=== PATIENT | male | born 1940 | race Caucasian/White ===

== ENCOUNTER 2024-01-03 13:15 | Emergency (ER) | payer MEDICARE, OTHER, SELFPAY ==
[2024-01-03 13:31] VITALS: BP 143/68
[2024-01-03 13:55] LABS: % Basophils 0.5 % (0-2); % Eosinophils 2.4 % (0-6); % Immature Granulocytes 0.3 % (0-0.5); % Lymphocytes 19.7 % (20.5-51.1); % Monocytes 9.1 % (1.7-9.3); Absolute Eosinophils 0.2 10^3/uL (0-0.7); Absolute Lymphocytes 1.5 10^3/uL (1.2-3.4); Absolute Monocytes 0.7 10^3/uL (0.1-0.6); Absolute Neutrophils 5.3 10^3/uL (1.4-6.5); Hematocrit 36.5 % (39.0-52.0); Mean Corp Hgb Conc. 32.9 g/dL (33.0-37.0); Mean Corpuscular Hgb 30.2 pg (27.0-31.0); Mean Corpuscular Volume 91.7 fL (80.0-94.0); Mean Platelet Volume 9.7 fL (7.4-10.4); Nucleated Red Blood Cells % 0 % (-); Platelet Count 175 10^3/uL (130-400); Red Blood Cell Count 3.98 10^6/uL (4.70-6.10); Red Cell Dist. Width 13.7 % (11.5-14.5); White Blood Cell Count 7.8 10^3/uL (4.8-10.8)
[2024-01-03 14:01] LABS: INR 1.08; PT 13.8 Sec (11.4-14.6)
[2024-01-03 14:02] LABS: ALT (SGPT) 20 U/L (0-50); AST (SGOT) 26 U/L (17-59); Albumin 4.9 g/dl (3.5-5.0); Alkaline Phosphatase 93 U/L (38-126); Blood Urea Nitrogen 40 mg/dl (9-20); Calcium 9.6 mg/dl (8.4-10.2); Carbon Dioxide 27 mmol/L (22-30); Chloride 102 mmol/L (98-107); Glucose 110 mg/dl (70-99); Potassium 4.9 mmol/L (3.5-5.1); Sodium 138 mmol/L (135-145); Total Bilirubin 0.5 mg/dl (0.2-1.3); eGFR 37.35
[2024-01-03 14:14] LABS: Troponin I < 0.012 ng/ml
== END 2024-01-03 17:27 ==
LOC: EMR 13:15
PROVIDERS: EMERGENCY PHYSICIAN Emergency Medicine
DX: R07.89 Other chest pain (principal); Z53.21 Procedure and treatment not carried out due to patient leaving prior to being seen by health care provider
CPT/HCPCS: 80053; 84484; 85025; 85610; 93005

== ENCOUNTER → 2024-01-04 10:23 | Outpatient (REF) | payer MEDICARE, OTHER, SELFPAY | LOC: RAD 10:23 | PROVIDERS: ATTENDING PHYSICIAN Specialist; FAMILY PHYSICIAN Internal Medicine Geriatric Medicine | DX: N13.30 Unspecified hydronephrosis (principal) | CPT/HCPCS: 78708; A9539 ==

== ENCOUNTER → 2024-01-13 11:14 | Outpatient (REF) | payer MEDICARE, OTHER, SELFPAY | LOC: DHCBC HW 11:14 | PROVIDERS: ATTENDING PHYSICIAN Internal Medicine Cardiovascular Disease; FAMILY PHYSICIAN Internal Medicine Geriatric Medicine | DX: I20.0 Unstable angina (principal) | CPT/HCPCS: 93306 ==

== ENCOUNTER → 2024-01-14 08:10 | Outpatient (REF) | payer MEDICARE, OTHER, SELFPAY | LOC: DHCBC/DCA 08:10 | PROVIDERS: ATTENDING PHYSICIAN Internal Medicine Cardiovascular Disease; FAMILY PHYSICIAN Internal Medicine Geriatric Medicine | DX: I25.10 Atherosclerotic heart disease of native coronary artery without angina pectoris (principal); Z95.5 Presence of coronary angioplasty implant and graft; I20.0 Unstable angina | CPT/HCPCS: 78452; 93017; A9500; J2785 ==

== ENCOUNTER 2024-05-10 17:49 | Observation (INO) | payer MEDICARE, OTHER, SELFPAY ==
[2024-05-10] VITALS (7 sets, daily range): BP systolic 116–158; BP diastolic 58–80; BMI 26.5
[2024-05-10] MEDS: TORADOL 15 MG IV ×2 (13:50→16:32)
[2024-05-10] MEDS: NSS 1000 IV ×2 (13:51→18:37)
--- NOTE | 2024-05-10 13:58 | ED.GENMED ---
History of Present Illness
General
Chief Complaint: Abdominal Symptoms
Time Seen by Provider: 05/10/24 13:05
History of Present Illness
History of Present Illness:
84-year-old male with history of hypertension, CAD status post CABG, history of bladder and prostate cancer in remission, history of chronic back pain status post MILD procedure 1 week ago by [facility] (Dr. Sales) presenting for lower abdominal pain and
diarrhea. Patient reports after the surgery, was prescribed tramadol. Since surgical procedure and taking medication, has had lower abdominal pain with diarrhea. Denies any blood in the diarrhea. Reports nausea without vomiting. Denies any
associated fever. Reports pain radiates to his right hip and groin. Also notes pain in his back since procedure. Denies weakness or numbness to his extremities. Patient presents from rehabilitation facility, sent for evaluation and imaging of
his abdomen. Denies chest pain or difficulty breathing. Denies medical complaints.
Phy Exam
Physical Exam
Physical Exam:
General: Well-appearing, no clinical signs of dehydration, nontoxic and in no acute distress
HEENT: protecting airway
Neck: appears supple
CV: Normal heart rate, regular rhythm, no evidence of cyanosis
Resp: No accessory muscle use, no increased work of breathing, lungs clear to auscultation bilaterally
Abd: Soft and non-distended, generalized tenderness to lower abdomen, left greater than right.
Extremities: No deformities, no swelling, no erythema, pulses and sensation intact. Incision to the lumbar spine is clean/dry/intact. No erythema or warmth. No palpable tenderness to the back.
Neuro: alert, no focal neurologic deficit
: deferred
Rectal: deferred
Psych: Normal affect
Skin: Intact
Course
Orders/Labs/Results
Orders:
Orders
05/10/24 13:43
0.9% Sodium Chloride 1000 ml [Nss] 1,000 ml IV BOLUS
Ketorolac [Toradol] 15 mg IV NOW STA
05/10/24 13:44
CT Abd/pelvis W Iv Cont Urgent
Comment:
Reason For Exam: lower abdominal pain and diarrhea
05/10/24 13:59
Complete Blood Count/With Diff Urgent
Comprehensive Metabolic Panel Urgent
Lipase Urgent
Urinalysis Reflex To Culture Urgent
Date Specimen was Collected: 05/10/24
Time Specimen was Collected: 13:48
Urine Microscopic Reflex Cult Urgent
Urine Culture Urgent
TOM Source: U
Specimen Description:
Date Specimen was Collected: 05/10/24
Time Specimen was Collected: 13:48
05/10/24 16:11
Cefepime HCl [Maxipime] 2,000 mg IV NOW STA
Ketorolac [Toradol] 15 mg IV NOW STA
Abnormal Lab Results
05/10/24
13:59
RBC 4.26 L 10^6/uL
(4.70-6.10)
MCH 31.5 H pg
(27.0-31.0)
Abs Immat Gran (auto) 0.1 H 10^3/uL
(0-0.05)
Absolute Monos (auto) 0.8 H 10^3/uL
(0.1-0.6)
Immature Gran % 0.7 H %
(0-0.5)
Lymphocytes % 14.4 L %
(20.5-51.1)
BUN 35 H mg/dl
(9-20)
Creatinine 1.4 H mg/dL
(0.7-1.3)
Glucose 105 H mg/dl
(70-99)
Ur Occult Blood Reflex 1+ A
(Negative)
Leukocyte Esterase Rfl 2+ A
(Negative)
Urine RBC 26-30 A /HPF
(0-2)
Urine WBC (Reflex) 50-60 A /HPF
(0-5)
05/10/24 13:59
05/10/24 13:59
Vital Signs
Initial and Last Documented VS:
Initial Vital Signs
Temp Pulse Resp BP Pulse Ox
97.9 F 74 18 147/79 100
05/10/24 12:14 05/10/24 12:14 05/10/24 12:14 05/10/24 12:14 05/10/24 12:14
Last Documented Vital Signs
Temp Pulse Resp BP Pulse Ox
97.9 F 71 18 158/74 99
05/10/24 12:14 05/10/24 16:05 05/10/24 16:05 05/10/24 16:05 05/10/24 16:05
MDM/Problems Addressed
MDM/Problems Addressed:
84-year-old male with history of CAD status post CABG, hypertension, prostate bladder cancer in remission, chronic back pain status post MILD procedure presenting for lower abdominal pain and diarrhea. Vital signs are normal.
On exam, patient is well-appearing, no acute distress, nontoxic. Generalized tenderness to lower abdomen, left greater than right. Differential considerations include enteritis versus diverticulitis versus cystitis versus obstruction. Patient's
incision to the back is well-appearing, without evidence of infection. No reproducible tenderness. No neurovascular compromise to the extremities. Without concern for present spinal abnormality. Will obtain laboratory analysis and CT abdominal
imaging. Will start on fluids and Toradol and reassess for improvement
16:10 -patient's labs relatively unremarkable. Urine does show evidence of bacteria and blood. CT shows severe bilateral hydroureteronephrosis without obstructing mass or stone, which has been seen on the left in the past, however has now
progressed to the right. Patient is still having significant amount of pain. Will redose pain medication. Will consult with urology and start antibiotics with plan for admission.
*Critical Care Note
Total Time (30-74mins, 75-104mins- exclusive of procedures): Not Applicable
ED Attending Note
-
Portions of this chart may have been created with voice recognition software.� Occasional wrong word or��sound alike� substitutions may have occurred due to the inherent limitations of voice recognition software.
Discharge Plan
Departure
Prescriptions:
No Action
olanzapine 2.5 MG tablet
2.5 mg PO HS
alprazolam 0.25 MG tablet
0.25 mg PO DAILY
Patient Comments:
01/07/22: Per PDMP, last filled 07/25/21 #30 for 30 days
famotidine 20 MG tablet
20 mg PO HS
mirtazapine 15 MG tablet
15 mg PO HS
escitalopram oxalate 20 MG tablet
20 mg PO DAILY
rosuvastatin 20 MG tablet
20 mg PO HS
Align 4 MG capsule
4 mg PO DAILY
polyethylene glycol 3350 [Miralax] 17 gram Powder In Packet
17 g PO HS
Colace 50 mg Capsule
150 mg PO HS
aspirin 81 mg Tablet,Chewable
81 mg PO DAILY
acetaminophen [Tylenol Ex Str Rapid Release] 500 mg Tablet
500 - 1,000 mg PO Q6H PRN (Reason: pain)
Referrals:
Adarsh Foy MD [Family Provider] -
Interventions
Interventions:
*Risk Screen - Suicide Last Done: 05/10/24 14:13
*General Assessment Last Done: 05/10/24 14:13
*Neglect/Abuse Screening Last Done: 05/10/24 14:13
[id number] Assessment Last Done: 05/10/24 14:13
Discharge Date and Time
Print Language: INDONESIAN
[2024-05-10 14:10] LABS: % Basophils 0.2 % (0-2); % Immature Granulocytes 0.7 % (0-0.5); % Lymphocytes 14.4 % (20.5-51.1); % Monocytes 9.2 % (1.7-9.3); % Neutrophils 74.5 % (42.2-75.2); Absolute Eosinophils 0.1 10^3/uL (0-0.7); Absolute Immature Granulocytes 0.1 10^3/uL (0-0.05); Absolute Lymphocytes 1.2 10^3/uL (1.2-3.4); Absolute Monocytes 0.8 10^3/uL (0.1-0.6); Absolute Neutrophils 6.2 10^3/uL (1.4-6.5); Hematocrit 39.8 % (39.0-52.0); Hemoglobin 13.4 g/dL (13.0-18.0); Mean Corp Hgb Conc. 33.7 g/dL (33.0-37.0); Mean Corpuscular Hgb 31.5 pg (27.0-31.0); Mean Corpuscular Volume 93.4 fL (80.0-94.0); Mean Platelet Volume 9.7 fL (7.4-10.4); Nucleated Red Blood Cells % 0 % (-); Platelet Count 150 10^3/uL (130-400); Red Blood Cell Count 4.26 10^6/uL (4.70-6.10); Red Cell Dist. Width 14.1 % (11.5-14.5); White Blood Cell Count 8.4 10^3/uL (4.8-10.8)
[2024-05-10 14:19] LABS: Urine Albumin Trace (Neg - Trace); Urine Bilirubin Negative (Negative); Urine Character Clear (Clear); Urine Color Yellow; Urine Glucose Negative (Negative); Urine Ketone Negative (Negative); Urine Leukocyte 2+ (Negative); Urine Nitrite Negative (Negative); Urine Occult Blood 1+ (Negative); Urine Specific Gravity 1.015 (<1.030); Urine Urobilinogen Negative (Neg - 1+); Urine pH 6.5 (5.0-9.0)
[2024-05-10 14:29] LABS: ALT (SGPT) 17 U/L (0-50); AST (SGOT) 26 U/L (17-59); Alkaline Phosphatase 70 U/L (38-126); Blood Urea Nitrogen 35 mg/dl (9-20); Calcium 9.5 mg/dl (8.4-10.2); Carbon Dioxide 30 mmol/L (22-30); Chloride 100 mmol/L (98-107); Glucose 105 mg/dl (70-99); Potassium 4.6 mmol/L (3.5-5.1); Sodium 136 mmol/L (135-145); Total Bilirubin 0.6 mg/dl (0.2-1.3); Total Protein 7.9 g/dl (6.3-8.2); eGFR 50.18
[2024-05-10 14:57] LABS: Lipase 213 U/L (23-300)
[2024-05-10 15:12] LABS: Urine Urothelial Cell 0-2 /LPF (FEW)
[2024-05-10 15:13] LABS: Urine Red Blood Cell 26-30 /HPF (0-2); Urine White Cell 50-60 /HPF (0-5)
--- NOTE | 2024-05-10 16:31 | HPS.HSE ---
Addendum entered and electronically signed by Roge Razo MD 05/10/24 17:07:
I saw and examined the patient.
The BRASS CHASER or PA's note was reviewed and I agree with the note.
Comment: 84 y/o M who presents with CC lower abdominal pain with diarrhea over the last week.
158/74, 71, 18, 97.9 �F, 99% on room air
Gen: NAD, AAOx3.
Eyes: EOMI, PERRLA, no scleral icterus.
Neck: supple.
CV: RRR, +S1/S2, no m/r/g.
Resp: CTAB, no rales, wheezes, or rhonchi.
Abd: +BS, soft, NT, ND
Skin: No rashes.
Neuro: CN 2-12 intact, 5/5 strength x 4, slightly decreased sensation to touch in RLE.
MSK: no TTP or bony deformities in the L-spine
Psych: Normal mood and affect.
CT A/P:
1. Severe bilateral hydroureteronephrosis without evidence for an obstructing mass or calculus. Findings are similar on the left but have progressed on the right compared to the CT abdomen/pelvis from 12/29/2022.
2. Cholelithiasis.
3. Moderate colonic stool burden.
4. Additional chronic findings, as detailed above.
U/A: WBC 50-60, 2+ LE, NEG NIT, 6-10 squamous
Cr 1.4 (1.8 on 01/03/24)
B/L hydronephrosis:
-Afebrile, no leukocytosis, no urinary symptoms. No diagnosis of UTI at this time.
-Cr 1.4, improved from prior
-c/s urology
-support with IVF after receiving IV contrast
Abdominal pain and diarrhea:
-it's very unlikely that these symptoms have anything to do with the patient's MILD procedure. It's likely coincidence that these symptoms started shortly after the procedure.
-Suspect overflow diarrhea due to moderate colonic stool burden. Start MiraLAX and senna.
Original Note:
Family Physician
-
Family Physician: Adarsh Foy
Chief Complaint
-
Right lower back pain to right hip, constipation x 1 week with diarrhea
History of Present Illness
84-year-old male with history of lumbar spinal stenosis status post MILD procedure [address] Murphy at [facility] who is complaining of current acute on chronic right lower back pain to right hip right side abdomen,
constipation x 1 week with liquid diarrhea x 1 week. He reports taking tramadol for pain but recently stopped. He denies fever, chills, chest pain, palpitations, shortness breath, cough, vomiting, urinary symptoms. He was noted to have
nonobstructive bilateral hydroureteronephrosis in ER with JOANNA and stool burden on CT. He has PMH lumbar spinal stenosis, bilateral renal calculi, bladder cancer s/ p /TURB ,BPH status post TURP 2021, CAD/CO/CABG x 3 vessel, CABG x 1 vessel 2018,
HTN, HLD, orthostatic hypotension, PE, asthma, GERD, esophageal stricture with history of swallowing difficulties,, IBS, OA, anxiety, depression
Medical History
Past Medical History
Past Medical History: Reports Other
Additional Past Medical History:
lumbar spinal stenosis
bilateral renal calculi
bladder cancer s/ p /TURB
BPH status post TURP 2021
CAD/CO/CABG x 3 vessel, CABG x 1 vessel 2018
HTN
Orthostatic hypotension
HLD
PE
asthma,
GERD
esophageal stricture with history of swallowing difficulties
IBS
OA
anxiety/ depression
Past Surgical History: Reports Other
Additional Past Surgical History:
Right CTR
CABG times 10/09/2017, CABG x 3
Bilateral cataract extraction
Dental implants
TURP 2021
TURB 2/2 bladder cancer
Social History
Tobacco: Non-smoker
Alcohol: None
Drug: None
Personal:
Living: With Family
Employment: Retired
Family History
Family History: Other (Father AAA, mother CVA)
Allergies / Home Medications
Allergies reflects when Allergies were last updated in [facility].
Home Medications with original date entered in [facility]
Allergy/Medication List:
Allergies
Allergy/AdvReac Type Severity Reaction Status Date / Time
No Known Allergies Allergy Verified 01/03/24 13:32
Home Medications
Bifidobacterium infantis 4 mg capsule (Align) 4 mg PO DAILY probiotic 01/01/22
alprazolam 0.25 mg tablet 0.25 mg PO BID@1200,2200 anxiety 01/01/22
escitalopram oxalate 20 mg tablet 20 mg PO DAILY depression/anxiety 01/01/22
famotidine 20 mg tablet 20 mg PO HS Gastrointestinal Issue 01/01/22
acetaminophen 500 mg tablet (Acetaminophen Pain Relief) 1,000 mg PO TID pain 01/11/23
aspirin 81 mg chewable tablet 81 mg PO DAILY Blood Clot Prevention/Tx 01/11/23
isosorbide mononitrate 30 mg tablet,extended release 24 hr 30 mg PO NOON Heart Disease/Condition 05/10/24
metoprolol succinate 25 mg tablet,extended release 24 hr 25 mg PO DAILY Blood Pressure 05/10/24
pregabalin 50 mg capsule 50 mg PO BID@0800,1800 Neurological Condition 05/10/24
rosuvastatin 40 mg tablet 20 mg PO HS High Cholesterol 05/10/24
Review of Systems
-
History Source: Patient and Family ( at bedside)
A 12 point ROS was completed and negative except as noted: Yes
Constitutional: Denies Fever or Fatigue
EENT: Denies Sore Throat or Runny Nose
Respiratory: Denies Cough or Trouble Breathing
Cardiac: Denies Chest Pain, Diaphoresis, Palpitations or Syncope
Abdomen/GI: Reports Abdominal Pain (Right sided), Diarrhea and Constipated (1 week); Denies Nausea or Vomiting
: Denies Dysuria, Frequency, Flank Pain, Incontinence, Difficulty Voiding, Urgency, Bleeding or Dark Urine
Musculoskeletal: Reports Other (Pain right lower lumbar/right buttocks on palpation, lumbar spinal incision at L1 level intact no surrounding erythema, tenderness or drainage); Denies Joint Pain or Edema
Skin: Denies Itching or Rash
Neurological: Denies Dizzy, Headache or Weakness
Endocrine: Reports No Symptoms
Hematologic/Lymphatic: Reports No Symptoms
Psych: Reports Calm
Physical Exam
Vital Signs
Vital Signs
Temp Pulse Resp BP Pulse Ox
97.9 F 71 18 158/74 99
05/10/24 12:14 05/10/24 16:05 05/10/24 16:05 05/10/24 16:05 05/10/24 16:05
Physical Exam
General: No Apparent Distress, Comfortable and Conversant; No Fever or Chills
HEENT: NormoCephalic, Anicteric, Moist mucous membranes, PERRLA and [place] Conjunctivae
Respiratory: Clear; No Wheezes, Rales or Rhonchi
Cardiac: S1/S2 and Regular Rhythm; No Murmur, Rub, Gallop or Peripheral Edema
Breast: Deferred by me
GI: Soft, Non Tender, Non Distended, Normal Bowel Sounds and No Hepatosplenomegaly
Rectal: Deferred by Provider
Genito-urinary: No costovertebral tender
Musculoskeletal: No Clubbing, No Cyanosis, No Edema and Other (Pain right lower lumbar/right buttocks on palpation, lumbar spinal incision at L1 level intact no surrounding erythema, tenderness or drainage)
Skin: Warm and Dry; No Rash
Neuro: AO x 3, No Motor Deficits, Nonfocal/grossly intact, Cranial Nerves Intact and No Sensory Deficits; No Slurred Speech, Facial Droop or Tremors
Psych: Calm
Laboratory Results
-
05/10/24 13:59
05/10/24 13:59
Laboratory Results
Total Bilirubin 0.6 mg/dl (0.2-1.3) 05/10/24 13:59
AST 26 U/L (17-59) 05/10/24 13:59
ALT 17 U/L (0-50) 05/10/24 13:59
Alkaline Phosphatase 70 U/L (38-126) 05/10/24 13:59
Lipase 213 U/L (23-300) 05/10/24 13:59
Impression/Plan
-
Impression/plan:
Admit to MedSurg
#ABD pain 2/2 severe bilateral hydroureteronephrosis without obstruction unclear etiology
#Bladder cancer s/ p /TURB 10 years ago-Hx chemo wash, BCG treatment
#BPH status post TURP 2021
#hx bilateral renal calculi
-UA negative, no WBC afebrile
-IV NSS
-IV Zofran
-Consult urology patient follows with Dr. Kaminski
CT abdomen pelvis With IV contrast
1. Severe bilateral hydroureteronephrosis without evidence for an obstructing mass or calculus. Findings are similar on the left but have progressed on the
right compared to the CT abdomen/pelvis from 12/29/2022.
2. Cholelithiasis.
3. Moderate colonic stool burden.
#Diarrhea 2/2 moderate stool burden
No BM in past Week
-Start MiraLAX, senna
#JOANNA 2/2 severe bilateral hydroureteronephrosis/diarrhea
Creat 1.4 baseline 1
IV NSS 100 cc/hr
-Follow BMP
#Acute on chronic right lower back pain with radiculopathy secondary to lumbar spinal stenosis
#Lumbar spinal stenosis
-Status post MILD procedure with incision lower back, removal bone/ligament tissue Dr. Maguire
-Continue Tylenol and Lyrica, patient stopped taking tramadol
# CAD/CO/CABG x 3 vessel, CABG x 1 vessel 2017
-Continue aspirin 81 mg daily, Imdur 30 mg noon, metoprolol succinate 25 mg daily, Crestor 20 mg at bedtime
# HTN�benign
#Orthostatic hypotension
-Continue metoprolol succinate 25 mg daily, Imdur 30 mg noon with hold parameters
#HLD
Continue Crestor 20 mg at bedtime
# PE hx
#asthma-no acute exacerbation
#GERD
#Esophageal stricture with history of swallowing difficulties
#IBS
-Continue Pepcid 20 mg at bedtime
#OA
-Continue Tylenol 1000 mg 3 times daily scheduled, Lyrica 50 mg twice daily
#Anxiety/ depression
-Continue Lexapro 20 mg daily, Xanax 0.25 mg twice daily
DVT prophylaxis
SCDs
DNR per patient with at bedside
[2024-05-10] MEDS: MAXIPIME 2000 MG IV (16:32)
[2024-05-10] MEDS: MIRALAX 17 GRAMS PO (17:19)
[2024-05-10] MEDS: SENOKOT 8.6 MG PO (17:19)
[2024-05-10] MEDS: LYRICA 50 MG PO (19:25)
--- NOTE | 2024-05-10 21:25 | CON.MD ---
Consultation - Medical
-
84M presents to ED w/ persistent right lower back pain w/ radiation to buttock and sacrum.
Also notes generalized lower abdominal pain w/ diarrhea.
Prior urologic h/o bladder cancer s/p TURBT and BPH s/p TURP.
H/o chronic left hydroureteronephrosis s/p stent placement (2022) and subsequent removal.
DENIES voiding symptoms.
DENIES dysuria.
CTAP w/ IV contrast =>
- bilateral hydroureteronephrosis without evidence for an obstructing mass or calculus. Findings are similar on the left but have progressed on the right compared to the CT abdomen/pelvis from 12/29/2022.
- TURP defect
04/04/24: s/p surveillance cystoscopy - normal, widely patent resected prostatic urethra, BCG granulomatous changes.
05/10/24: Cr 1.4
02/2024: Cr 1.64
12/2023: Cr 1.8
UA: +WBCs/RBCs, negative nitrites
Recommendations:
- no indication for uro-surgical intervention - observation of bilateral hydroureteronephrosis noted on CT imaging
- Cr stable (and improved from early 2023)
- UCx 05/10 no growth - no indication for abx
- F/U 09/2024 w/ Dr. Kaminski as scheduled
D/w patient and spouse.
D/w Dr. Kaminski.
[2024-05-10] MEDS: CRESTOR 20 MG PO (21:30)
[2024-05-10] MEDS: XANAX 0.25 MG PO (21:31)
[2024-05-10] MEDS: TYLENOL 1000 MG PO (21:31)
[2024-05-10] MEDS: PEPCID 20 MG PO (21:31)
[2024-05-11] MEDS: NSS 1000 IV ×2 (03:16→13:13)
[2024-05-11 06:44] LABS: % Basophils 0.3 % (0-2); % Eosinophils 2.5 % (0-6); % Immature Granulocytes 0.5 % (0-0.5); % Lymphocytes 17.3 % (20.5-51.1); % Monocytes 11.7 % (1.7-9.3); % Neutrophils 67.7 % (42.2-75.2); Absolute Eosinophils 0.2 10^3/uL (0-0.7); Absolute Lymphocytes 1.1 10^3/uL (1.2-3.4); Absolute Monocytes 0.7 10^3/uL (0.1-0.6); Absolute Neutrophils 4.1 10^3/uL (1.4-6.5); Hematocrit 34.2 % (39.0-52.0); Hemoglobin 11.7 g/dL (13.0-18.0); Mean Corp Hgb Conc. 34.2 g/dL (33.0-37.0); Mean Corpuscular Volume 90.7 fL (80.0-94.0); Mean Platelet Volume 9.9 fL (7.4-10.4); Nucleated Red Blood Cells % 0 % (-); Platelet Count 127 10^3/uL (130-400); Red Blood Cell Count 3.77 10^6/uL (4.70-6.10); Red Cell Dist. Width 13.9 % (11.5-14.5); White Blood Cell Count 6.1 10^3/uL (4.8-10.8)
[2024-05-11 07:09] LABS: Blood Urea Nitrogen 36 mg/dl (9-20); Calcium 8.5 mg/dl (8.4-10.2); Carbon Dioxide 22 mmol/L (22-30); Chloride 107 mmol/L (98-107); Estimated Creatinine Clearance 45 ml/min; Glucose 82 mg/dl (70-99); Potassium 4.4 mmol/L (3.5-5.1); Sodium 136 mmol/L (135-145); eGFR 50.18
[2024-05-11 07:38] VITALS: BP 136/64
[2024-05-11] MEDS: TYLENOL 1000 MG PO ×2 (08:02→16:32)
[2024-05-11] MEDS: SENOKOT 8.6 MG PO (08:02)
[2024-05-11] MEDS: MIRALAX 17 GRAMS PO (08:02)
[2024-05-11] MEDS: LYRICA 50 MG PO ×2 (08:03→16:32)
[2024-05-11] MEDS: TOPROL XL 25 MG PO (08:03)
[2024-05-11] MEDS: LOW STRENGTH ASPIRIN 81 MG PO (08:03)
[2024-05-11] MEDS: VISBIOME 1 CAP PO (08:03)
[2024-05-11] MEDS: LEXAPRO 20 MG PO (08:03)
--- NOTE | 2024-05-11 10:13 | W.PN.HOSP.TC ---
Addendum entered and electronically signed by Roge Razo MD 05/11/24 11:40:
I saw and evaluated the patient. I reviewed the resident�s note and agree with findings and plan as documented in the resident�s note.
Pt reports pain has improved from yesterday. Had small BM.
Gen: NAD, AAOx3.
Eyes: EOMI, PERRLA, no scleral icterus.
Neck: supple.
CV: remains RRR, +S1/S2, no m/r/g.
Resp: remains CTAB, no rales, wheezes, or rhonchi.
Abd: +BS, soft, NT, ND
Skin: No rashes.
Neuro: CN 2-12 intact
Psych: Normal mood and affect.
CT A/P:
1. Severe bilateral hydroureteronephrosis without evidence for an obstructing mass or calculus. Findings are similar on the left but have progressed on the right compared to the CT abdomen/pelvis from 12/29/2022.
2. Cholelithiasis.
3. Moderate colonic stool burden.
4. Additional chronic findings, as detailed above.
B/L hydronephrosis:
-Afebrile, no leukocytosis, no urinary symptoms. UCx NG. No diagnosis of UTI at this time.
-Cr 1.4, improved from prior, stable
-received IVFs after contrast
-urology saw in c/s. Case discussed with Dr. Thurston.
Abdominal pain and diarrhea:
-it's very unlikely that these symptoms do not have anything to do with the patient's MILD procedure. It's likely coincidence that these symptoms started shortly after the procedure.
-Suspect overflow diarrhea due to moderate colonic stool burden. Started MiraLAX and senna.
-dose of Mg citrate today
Medically cleared for discharge, case management aware.
Original Note:
Today's Communication/Plan
-
Urology consult appreciated
UC pending
Assessment / Plan
Assessment / Plan
IMPRESSION: 84-year-old male with past history of bladder cancer s/p TURB, BPH s/p TURP, CAD s/p CABG, hypertension, hyperlipidemia, GERD, IBS, MILD procedure (1 week ago) presenting with lower abdominal pain. CT showed severe bilateral
hydroureteronephrosis without mass or calculus, cholelithiasis, moderate colonic stool burden.
PLAN:
#Bilateral hydroureteronephrosis
-No fever, leukocytosis, urinary symptoms
-UA: Esterase 2+, WBC 50-60, squamous cells 6-10, nitrite negative
-UCx pending
-Urology consult appreciated
JOANNA
-Creatinine 1.4, stable from yesterday
-Likely in the setting of hydroureteronephrosis
-Urology consult appreciated
Diarrhea
-Overflow diarrhea in the setting of constipation
Constipation
-CT: Moderate colonic stool burden
-Start MiraLAX, senna
CAD, s/p CABG
-Continue aspirin, Imdur, metoprolol
HLP
-Continue rosuvastatin
GERD
-Continue Pepcid
Osteoarthritis
Continue Tylenol, Lyrica
Anxiety/depression
Continue Lexapro, Xanax
DVT prophylaxis SCDs
DNR
Anticipated Discharge: 24 - 48 hours
Subjective/Interval History
-
Date of Service: May 11, 2024
Objective Data
-
Labs:
Laboratory Results
05/11/24
06:03
WBC 6.1
Hgb 11.7 L
Hct 34.2 L
Plt Count 127 L
Sodium 136
Potassium 4.4
Chloride 107
Carbon Dioxide 22
BUN 36 H
Creatinine 1.4 H
Glucose 82
Calcium 8.5
Vital Signs:
Vital Signs
Temp Pulse Resp BP Pulse Ox
97.9 F 62 16 136/64 99
05/11/24 07:38 05/11/24 08:03 05/11/24 07:38 05/11/24 08:03 05/11/24 07:38
I&O
05/10/24 05/11/24 05/12/24
06:59 06:59 06:59
Intake Total 1959 / 1959
Output Total 100 / 100
Balance 1859 / 1859
Review of Systems
-
History Source: Patient
Constitutional: Reports No Symptoms
EENT: Reports No Symptoms Reported
Respiratory: Reports No Symptoms
Cardiac: Reports No Symptoms
Abdomen/GI: Reports No Symptoms
Genitourinary: Reports No Symptoms
Musculoskeletal: Reports No Symptoms
Neuro: Reports No Symptoms
Endocrine: Reports No Symptoms
Hematologic / Lymphatic: Reports No Symptoms
Allergy / Immunology: Reports No Symptoms
Physical Exam
-
General: Well Developed, Well Nourished and No Apparent Distress
HEENT: Normocephalic
Respiratory: Clear to Auscultation
Cardiac: Regular Rhythm and S1/S2
GI: Soft, Nontender and Nondistended
Genito-urinary: No Costovertebral Tender
Musculoskeletal: No Clubbing and No Edema
Neuro: Awake, Alert and Oriented
Hematologic / Lymphatic: No Lymphadenopathy
Psych: Calm
[2024-05-11 10:15] VITALS: BP 121/54; PULSE 58; O2SAT 100
[2024-05-11] MEDS: CITROMA 300 ML PO (10:16)
--- NOTE | 2024-05-11 10:28 | PTOTSP ---
pt currently demonstrates ability to complete simple ADLs, functional transfers, ambulation with supervision to no assistance. no acute OT needs identified at this time, will sign off.
[2024-05-11] MEDS: XANAX 0.25 MG PO (12:27)
[2024-05-11 15:20] VITALS: BP 136/66
--- NOTE | 2024-05-11 15:59 | W.DCSUMMARY ---
Addendum entered and electronically signed by Roge Razo MD 05/12/24 08:14:
Read, reviewed, and agree. See same day progress note for additional details.
Total time spent on d/c = 33 min. This included today's physical exam, progress note, review of laboratory and diagnostic data, preparation of discharge documents and prescriptions, and discussions about the pt's hospital course and discharge plan
with the patient and other medical underwriter involved in the patient's care.
Original Note:
Discharge Summary
Discharge Data
Date of Admission: 05/10/24
Date of Discharge: 05/11/24
Total time spent discharging patient (in min): 34
-
Pending Results: No
Hospital Course
Primary diagnoses:
Constipation with overflow diarrhea
Right lower back pain
Bilateral hydroureteronephrosis
Secondary diagnoses:
Essential hypertension
Hyperlipidemia
History of bladder cancer s/p TURBT
BPH s/p TURP
CAD s/p CABG
GERD
IBS
Esophageal stricture
54-year-old male status post MILD procedure 1 week ago presenting with right lower back pain radiating to right hip and buttock, constipation for the past week now with diarrhea, and lower abdominal pain. Patient denies urinary symptoms, fever,
nausea, vomiting. UA was positive for WBC/RBCs, negative for nitrites. UC showed no growth. Urology followed patient, no indication for urosurgical intervention. Creatinine was stable at 1.4 (with improvement from early 2023). Abdomen pelvis CT
with IV contrast showed severe bilateral hydroureteronephrosis without evidence for an obstructing mass or calculus, cholelithiasis, moderate colonic stool burden. Administered IVF after IV contrast. No leukocytosis was noted. Patient was started
on MiraLAX and senna for constipation.
Patient is medically stable to be discharged home with continuation of home meds. Outpatient follow-up with Dr. Kaminski as scheduled 09/2024 is recommended.
Discharge Plan
-
Patient Disposition: Home (Routine Discharge)
Discharge Diagnosis/Procedures: Right lower back pain, constipation, overflow diarrhea, bilateral hydroureteronephrosis, history of bladder cancer status post TURBT, history of benign prostate hyperplasia status post TURP, coronary artery disease
status post coronary artery bypass graft, hypertension, hyperlipidemia, gastroesophageal reflux disease, history of irritable bowel syndrome
Condition: Good
Diet: Low Cholesterol
Activity: As tolerated
Driving Restrictions: As prior to admission
Bathing Restrictions: None
Referrals:
Adarsh Foy MD [Family Provider] -
Additional Discharge Medication Instructions: Outpatient follow-up with Dr. Kaminski as scheduled 09/2024.
Prescriptions:
New
polyethylene glycol 3350 [HealthyLax] 17 gram Powder In Packet
17 g PO DAILY Qty: 3 0RF
Continued
alprazolam 0.25 MG tablet
0.25 mg PO BID@1200,2200
Patient Comments:
05/10/2024: last filled 03/10/24, 30 tabs for 30 days from [facility] [place]
famotidine 20 MG tablet
20 mg PO HS
escitalopram oxalate 20 MG tablet
20 mg PO DAILY
Align 4 MG capsule
4 mg PO DAILY
aspirin 81 mg Tablet,Chewable
81 mg PO DAILY
acetaminophen [Acetaminophen Pain Relief] 500 mg Tablet
1,000 mg PO TID
isosorbide mononitrate 30 mg tablet extended release 24 hr
30 mg PO NOON
metoprolol succinate 25 mg tablet extended release 24 hr
25 mg PO DAILY
rosuvastatin 40 mg tablet
20 mg PO HS
pregabalin 50 mg capsule
50 mg PO BID@0800,1800
Patient Comments:
05/10/2024: last filled 05/08/24, 60 tabs for 30 days from [facility] [place]
Discharge Orders:
Discharge Patient (As Directed); Ordered 05/11/24
Ordered By: Sarita Davila
Discharge Date and Time
Discharge Date/Time: 05/11/24 17:34
Print Language: AUSTRIAN
--- NOTE | 2024-05-11 16:47 | CM ---
Addendum entered by MADY Cullen 05/11/24 16:55:
Patient cleared for discharge. His fiancee will take him home. IMM signed.
Original Note:
Reviewed chart, met with patient to obtain information for assessment. Patient stated that he lives with his finileshe at [facility], in Independent living. Patient stated that he is independent with his ADLs and personal care as well as dressing
and bathing. He uses a rollator. His fiancee does all the driving and he has transportation to his appointments and to his provider.
Patient does not have DME besides the rollator.
He has been to a SNF in the past, at the [facility] and [facility].
Patient does not have VN services.
He has a prescription plan and he gets his medications from, [facility]
His provider is, Elpidio Foy.
Patient stated that he feels like he will be able to return home when cleared for discharge.
Plan: Case management will continue to follow and assist with discharge planning. Patient should be able to return home when cleared.
== END 2024-05-11 17:34 | disposition home or self-care (01) ==
LOC: 3 WEST ACU 17:49
PROVIDERS: Clinical Nurse Specialist Family Health; ADMITTING PHYSICIAN Internal Medicine; CONSULT PHYSICIAN Surgery; EMERGENCY PHYSICIAN Student in an Organized Health Care Education/Training Program; FAMILY PHYSICIAN Internal Medicine Geriatric Medicine
DX: R10.30 Lower abdominal pain, unspecified (principal); K59.00 Constipation, unspecified; R19.7 Diarrhea, unspecified; I25.10 Atherosclerotic heart disease of native coronary artery without angina pectoris; I10 Essential (primary) hypertension; G89.29 Other chronic pain; N13.30 Unspecified hydronephrosis; K80.20 Calculus of gallbladder without cholecystitis without obstruction; M19.90 Unspecified osteoarthritis, unspecified site; M25.551 Pain in right hip; I25.2 Old myocardial infarction; N17.9 Acute kidney failure, unspecified; F41.9 Anxiety disorder, unspecified; K58.0 Irritable bowel syndrome with diarrhea; F32.A Depression, unspecified; E78.5 Hyperlipidemia, unspecified; I95.1 Orthostatic hypotension; M48.061 Spinal stenosis, lumbar region without neurogenic claudication; K21.9 Gastro-esophageal reflux disease without esophagitis; K22.2 Esophageal obstruction; Z86.711 Personal history of pulmonary embolism; Z66 Do not resuscitate; Z85.46 Personal history of malignant neoplasm of prostate; Z85.51 Personal history of malignant neoplasm of bladder; Z95.1 Presence of aortocoronary bypass graft; Z87.442 Personal history of urinary calculi; Z90.79 Acquired absence of other genital organ(s); Z79.82 Long term (current) use of aspirin
CPT/HCPCS: 74177; 80048; 80053; 81003; 81015; 83690; 85025; 87070; 87086; 96361; 96374; 96375; 96376; 97165; 99285; G0378; Q9967

== ENCOUNTER 2024-05-21 17:30 | Emergency (ER) | payer MEDICARE, OTHER, SELFPAY ==
[2024-05-21 17:35] VITALS: BP 172/78
[2024-05-21 17:52] LABS: % Basophils 0.7 % (0-2); % Eosinophils 2.3 % (0-6); % Immature Granulocytes 0.2 % (0-0.5); % Lymphocytes 27.9 % (20.5-51.1); % Monocytes 9.6 % (1.7-9.3); % Neutrophils 59.3 % (42.2-75.2); Absolute Eosinophils 0.1 10^3/uL (0-0.7); Absolute Lymphocytes 1.2 10^3/uL (1.2-3.4); Absolute Monocytes 0.4 10^3/uL (0.1-0.6); Absolute Neutrophils 2.5 10^3/uL (1.4-6.5); Hematocrit 36.9 % (39.0-52.0); Hemoglobin 12.9 g/dL (13.0-18.0); Mean Corpuscular Hgb 31.5 pg (27.0-31.0); Mean Platelet Volume 9.8 fL (7.4-10.4); Nucleated Red Blood Cells % 0 % (-); Platelet Count 109 10^3/uL (130-400); Red Cell Dist. Width 13.5 % (11.5-14.5); White Blood Cell Count 4.3 10^3/uL (4.8-10.8)
[2024-05-21 18:00] VITALS: BP 141/65
[2024-05-21 18:12] LABS: ALT (SGPT) 23 U/L (0-50); AST (SGOT) 31 U/L (17-59); Albumin 4.9 g/dl (3.5-5.0); Alkaline Phosphatase 72 U/L (38-126); Blood Urea Nitrogen 21 mg/dl (9-20); Calcium 9.6 mg/dl (8.4-10.2); Carbon Dioxide 28 mmol/L (22-30); Chloride 95 mmol/L (98-107); Glucose 98 mg/dl (70-99); Potassium 4.7 mmol/L (3.5-5.1); Sodium 136 mmol/L (135-145); Total Bilirubin 0.7 mg/dl (0.2-1.3); Total Protein 7.8 g/dl (6.3-8.2); eGFR > 60.00
[2024-05-21] MEDS: TORADOL 15 MG IV (18:48)
[2024-05-21] MEDS: LYRICA 100 MG PO (18:56)
--- NOTE | 2024-05-21 23:20 | ED.GENMED ---
History of Present Illness
General
Chief Complaint: Generalized Pain
Source: patient
Exam Limitations: none
Time Seen by Provider: 05/21/24 18:31
Nursing documentation reviewed up to this point in time: agreed with
History of Present Illness
History of Present Illness:
Patient to ED with complaint of generalized pain. History of chronic generalized pain. Initially on Lyrica 50mg bid. This was increased to 100mg BID but he has not been able to get rx from pharmacy yet. States it will be avialable on wednesday.
States she had a MILD procedure done 3 weeks ago and his pain had progressively gotten worse. He was advised to follow up with Neurology but first appointment is not until Novemver. Came to ED tonight in hopes of being evaluated by neurologist.
Denies fever/chills, recent illness. No other complaints.
Past History
Past History
ED Past Medical History: CAD, Cancer (hx prostate), GERD, HTN, Hypercholesterolemia, Renal failure (c\\CKD), Psychiatric (anxiety) and Other (hx PE, NEUROPATHY)
ED Past Surgical History: Cardiac (CABG)
Review of Systems
Review of Systems
Allergies reviewed?: Yes
All Other Systems: ROS reviewed and negative except as documented in HPI and ROS
Constitutional: Reports no symptoms
EENT: Reports no symptoms
Respiratory: Reports no symptoms
Cardiac: Reports no symptoms
ABD/GI: Reports no symptoms
: Reports no symptoms
Musculoskeletal: Reports joint pain (Chronic generalized pain)
Skin: Reports no symptoms
Neurological: Reports other (Hx of neuropathy. Has generalized chronic pain)
Psychiatric: Reports depression and anxiety
Phy Exam
General Physical Exam
General Presentation: well appearing and no apparent distress
General age: appears stated age
General Skin: warm and dry
General Habitus: normal
General Mental: alert
General Hydration: appears well hydrated
Cardiovascular Exam
Cardiovascular Exam: regular rate/rhythm and no edema
Gastrointestinal Exam
Gastrointestinal Exam: non tender and soft
Neurological Exam
Neurological Exam: alert, oriented x3, CN II-XII intact, no motor deficits, no sensory deficits, speech normal and normal gait (Ambulating with walker)
Barbara Coma Scale
Eye Opening: Spontaneous
Verbal Response: Oriented
Motor Response: Obeys Commands
GCS Total Score: 15
Mental
Mental Status: oriented to person, oriented to place, oriented to time and usual mental status
Cranial
Cranial Nerves: normal
Motor
Seizure Activity: none
Gait: normal
Tremors: none
Right upper extremity: 4
Right lower extremity: 4
Left upper extremity: 4
Left lower extremity: 4
Bilateral upper extremities: 4
Bilateral lower extremities: 4
Sensory
Sensory Exam: intact
Musculoskeletal Exam
Musculoskeletal Exam: full ROM, no edema and neuro vasc intact
Skin Exam
Skin Exam: normal color, warm/dry and no rash
Psychiatric Exam
Psychiatric Exam: normal mood/affect
Course
Orders/Labs/Results
Orders:
Orders
05/21/24 17:41
Complete Blood Count/With Diff Urgent
Comprehensive Metabolic Panel Urgent
05/21/24 18:43
Ketorolac [Toradol] 15 mg IV NOW STA
05/21/24 18:53
Pregabalin [Lyrica] 100 mg PO NOW STA
Abnormal Lab Results
05/21/24
17:41
WBC 4.3 L 10^3/uL
(4.8-10.8)
RBC 4.10 L 10^6/uL
(4.70-6.10)
Hgb 12.9 L g/dL
(13.0-18.0)
Hct 36.9 L %
(39.0-52.0)
MCH 31.5 H pg
(27.0-31.0)
Plt Count 109 L 10^3/uL
(130-400)
Monocytes % 9.6 H %
(1.7-9.3)
Chloride 95 L mmol/L
(98-107)
BUN 21 H mg/dl
(9-20)
05/21/24 17:41
05/21/24 17:41
Vital Signs
Initial and Last Documented VS:
Initial Vital Signs
BP
172/78
05/21/24 17:35
Last Documented Vital Signs
Pulse Resp BP
74 22 141/65
05/21/24 18:50 05/21/24 18:50 05/21/24 18:00
*Critical Care Note
Total Time (30-74mins, 75-104mins- exclusive of procedures): Not Applicable
Update Note
Update Note:
Patient to ED hoping to see a neurologist jerod. I explained that he will not be able to see neurology tonight but that he can call the office on wednesday and ask for an earlier appointment. There are no changes in his symptoms tonight. He was
given 100mg Lyrica tonight and advised to take 2 of his 50mg tables bid until his rx is delivered. He is agreeable to plan.
ED Attending Note
-
Portions of this chart may have been created with voice recognition software.� Occasional wrong word or��sound alike� substitutions may have occurred due to the inherent limitations of voice recognition software.
Discharge Plan
Departure
Patient Disposition: Home (Routine Discharge)
Date of Disposition: 05/21/24
Time of Disposition: 19:00
Patient with high blood pressure during this ER visit?: No
Condition: Good
Covid-19: Not Applicable
Discharge Problem:
Generalized pain
Instructions: Chronic Pain (DC)
Prescriptions:
New
oxycodone 5 mg capsule
5 mg PO Q6H PRN (Reason: Pain) Qty: 8 0RF
No Action
alprazolam 0.25 MG tablet
0.25 mg PO BID@1200,2200
Patient Comments:
05/10/2024: last filled 03/10/24, 30 tabs for 30 days from [facility]
famotidine 20 MG tablet
20 mg PO HS
escitalopram oxalate 20 MG tablet
20 mg PO DAILY
Align 4 MG capsule
4 mg PO DAILY
aspirin 81 mg Tablet,Chewable
81 mg PO DAILY
acetaminophen [Acetaminophen Pain Relief] 500 mg Tablet
1,000 mg PO TID
isosorbide mononitrate 30 mg tablet extended release 24 hr
30 mg PO NOON
metoprolol succinate 25 mg tablet extended release 24 hr
25 mg PO DAILY
rosuvastatin 40 mg tablet
20 mg PO HS
pregabalin 50 mg capsule
50 mg PO BID@0800,1800
Patient Comments:
05/10/2024: last filled 05/08/24, 60 tabs for 30 days from [facility]
polyethylene glycol 3350 [HealthyLax] 17 gram Powder In Packet
17 g PO DAILY Qty: 3 0RF
Activity Restrictions/Additional Instructions:
Take a stool softener such as colace daily while using pain medications.
Interventions
Interventions:
*Risk Screen - Suicide Last Done: 05/21/24 17:36
*General Assessment Last Done: 05/21/24 17:36
*Neglect/Abuse Screening Last Done: 05/21/24 17:36
ED- Fall Risk Assessment Last Done: 05/21/24 17:35
*ED COVID-19 Vaccine History Last Done: 05/21/24 17:36
*Nursing Disposition Last Done: 05/21/24 19:11
Discharge Date and Time
Discharge Date/Time: 05/21/24 19:37
Print Language: UZBEK
== END 2024-05-21 19:37 | disposition home or self-care (01) ==
LOC: EMR 17:30
PROVIDERS: EMERGENCY PHYSICIAN Emergency Medicine; FAMILY PHYSICIAN Internal Medicine Geriatric Medicine
DX: G89.29 Other chronic pain (principal)
CPT/HCPCS: 99284; 96374; 80053; 85025

== ENCOUNTER → 2024-05-30 09:14 | Outpatient (REF) | payer MEDICARE, OTHER, SELFPAY | LOC: RAD 09:14 | PROVIDERS: ATTENDING PHYSICIAN Physician Assistant; FAMILY PHYSICIAN Internal Medicine Geriatric Medicine | DX: I71.40 Abdominal aortic aneurysm, without rupture, unspecified (principal) | CPT/HCPCS: 76770 ==

== ENCOUNTER → 2024-07-12 15:34 | Outpatient (REF) | payer MEDICARE, OTHER, SELFPAY | LOC: PAVMRI 15:34 | PROVIDERS: ATTENDING PHYSICIAN Psychiatry & Neurology Neurology; FAMILY PHYSICIAN Internal Medicine Geriatric Medicine | DX: G62.9 Polyneuropathy, unspecified (principal) | CPT/HCPCS: 70551 ==

== ENCOUNTER 2024-07-14 12:42 | Outpatient (REF) | payer MEDICARE, OTHER, SELFPAY ==
[2024-07-14 13:17] VITALS: BP 138/77; BP_SYST 51
[2024-07-14 13:46] LABS: INR 1.04; PT 13.4 Sec (11.4-14.6)
[2024-07-14 14:14] VITALS: BP 140/67
[2024-07-14 14:50] VITALS: BP 139/64
[2024-07-14 15:05] VITALS: BP 127/66
[2024-07-14 15:25] LABS: Spinal Fluid Glucose 53 mg/dl (40-70); Spinal Fluid Protein 67 mg/dl (12-60)
[2024-07-14 16:10] VITALS: BP 153/77
[2024-07-14 17:14] LABS: CSF Clarity Clear; CSF Color Colorless; CSF Tube # 1; Red Cell Count/CSF 1 mm^3; White Cell Count/CSF 1 mm^3 (0-5)
[2024-07-14 17:15] LABS: CSF Color Colorless; CSF Tube # 4; CSF Tube # Clarity Clear; Red Cell Count/CSF 1 mm^3; White Blood Cell Count/CSF 1 mm^3 (0-5)
== END 2024-07-14 16:35 | disposition home or self-care (01) ==
LOC: REG 12:42
PROVIDERS: ATTENDING PHYSICIAN Psychiatry & Neurology Neurology; FAMILY PHYSICIAN Internal Medicine Geriatric Medicine
DX: D68.8 Other specified coagulation defects (principal); D68.9 Coagulation defect, unspecified
CPT/HCPCS: 36415; 62328; 82945; 84157; 85610; 86788; 89051

== ENCOUNTER → 2024-12-14 11:31 | Outpatient (REF) | payer MEDICARE, OTHER, SELFPAY | LOC: HWRAD 11:31 | PROVIDERS: ATTENDING PHYSICIAN Specialist; FAMILY PHYSICIAN Internal Medicine Geriatric Medicine; REFERRING PHYSICIAN Internal Medicine Nephrology | DX: N13.30 Unspecified hydronephrosis (principal) | CPT/HCPCS: 76775 ==

== ENCOUNTER 2025-01-29 02:51 | Inpatient (IN) | payer MEDICARE, OTHER, SELFPAY ==
[2025-01-28 22:29] VITALS: BP 161/69
[2025-01-28 22:33] VITALS: BMI 28.5
[2025-01-28 22:47] LABS: % Basophils 0.3 % (0-2); % Eosinophils 1.9 % (0-6); % Immature Granulocytes 0.3 % (0-0.5); % Lymphocytes 16.2 % (20.5-51.1); % Neutrophils 71.3 % (42.2-75.2); Absolute Eosinophils 0.1 10^3/uL (0-0.7); Absolute Lymphocytes 1.1 10^3/uL (1.2-3.4); Absolute Monocytes 0.7 10^3/uL (0.1-0.6); Absolute Neutrophils 4.6 10^3/uL (1.4-6.5); Hematocrit 30.9 % (39.0-52.0); Hemoglobin 10.3 g/dL (13.0-18.0); Mean Corp Hgb Conc. 33.3 g/dL (33.0-37.0); Mean Corpuscular Hgb 29.6 pg (27.0-31.0); Mean Corpuscular Volume 88.8 fL (80.0-94.0); Mean Platelet Volume 9.7 fL (7.4-10.4); Nucleated Red Blood Cells % 0 % (-); Platelet Count 128 10^3/uL (130-400); Red Blood Cell Count 3.48 10^6/uL (4.70-6.10); Red Cell Dist. Width 14.3 % (11.5-14.5); White Blood Cell Count 6.5 10^3/uL (4.8-10.8)
[2025-01-28 23:00] VITALS: BP 161/70
[2025-01-28 23:01] LABS: Urine Albumin 2+ (Neg - Trace); Urine Bilirubin Negative (Negative); Urine Character Slightly Cloudy (Clear); Urine Glucose Negative (Negative); Urine Ketone Negative (Negative); Urine Leukocyte 3+ (Negative); Urine Nitrite Negative (Negative); Urine Occult Blood 2+ (Negative); Urine Urobilinogen Negative (Neg - 1+)
[2025-01-28 23:03] LABS: Urine Color Straw
[2025-01-28 23:12] LABS: Urine Bacteria Few (Negative)
[2025-01-28 23:13] LABS: Urine Red Blood Cell 0-2 /HPF (0-2); Urine White Cell 40-50 /HPF (0-5)
[2025-01-28 23:13] LABS: ALT (SGPT) 17 U/L (0-50); AST (SGOT) 23 U/L (17-59); Albumin 4.3 g/dl (3.5-5.0); Alkaline Phosphatase 63 U/L (38-126); Blood Urea Nitrogen 58 mg/dl (9-20); Calcium 9.1 mg/dl (8.4-10.2); Carbon Dioxide 26 mmol/L (22-30); Chloride 103 mmol/L (98-107); Estimated Creatinine Clearance 19 ml/min; Glucose 128 mg/dl (70-99); Lipase 178 U/L (23-300); Potassium 4.5 mmol/L (3.5-5.1); Sodium 138 mmol/L (135-145); Total Bilirubin 0.5 mg/dl (0.2-1.3); Total Protein 7.1 g/dl (6.3-8.2); eGFR 17.93
[2025-01-28] MEDS: DILAUDID 0.25 MG IV (23:21)
--- NOTE | 2025-01-28 23:30 | ED.GENMED ---
History of Present Illness
General
Chief Complaint: Abdominal Pain
Source: patient
Exam Limitations: none
Time Seen by Provider: 01/28/25 22:57
Nursing documentation reviewed up to this point in time: agreed with
History of Present Illness
History of Present Illness:
Patient is an 84-year-old male with stage IV CKD, CAD, hypertension, hyperlipidemia presenting to the emergency department with acute onset right flank pain. Patient reports onset of symptoms around 7 PM and describes a sharp, constant pain in his
right flank radiating around to his right upper abdomen and into his right groin. Patient reports associated nausea although denies any vomiting or diarrhea. Patient states this feels very different than prior kidney stones. He denies any
hematuria or dysuria.
Patient states he does have known gallstones and is wonder if this might be a gallbladder attack.
He denies exertional chest pain or shortness of breath. No known fever or chills.
Past History
Past History
ED Past Medical History: CAD, Cancer (hx prostate), GERD, HTN, Hypercholesterolemia, Renal failure (c\\CKD), Psychiatric (anxiety) and Other (hx PE, NEUROPATHY)
ED Past Surgical History: Cardiac (CABG)
Review of Systems
Review of Systems
Allergies reviewed?: Yes
All Other Systems: ROS reviewed and negative except as documented in HPI and ROS
Phy Exam
Physical Exam
Physical Exam:
Vitals: Hypertensive, otherwise vital signs stable. Afebrile
General: Patient is mildly uncomfortable due to pain. Nontoxic appearing
Skin: Warm and dry, no rashes or lesions
Head: Normocephalic, atraumatic
Eyes: Sclera nonicteric. EOMs intact. No nystagmus.
Throat: Protecting airway
Neck: Normal ROM, no cervical spine tenderness, no meningismus
Cardiac: Regular rate and rhythm, no murmurs.
Pulm: Normal respiratory effort, no wheezes, rales, rhonchi heard on exam
.
Abdomen: Abdomen soft. Mild tenderness in right upper quadrant without rebound tenderness or guarding. Negative Tena sign. Right CVA tenderness
Extremities: No evidence of cyanosis or edema. Palpable DP pulses bilaterally
Neuro: AAOx3. Grossly intact.
Psychiatric: Normal affect.
Course
Orders/Labs/Results
Orders:
Orders
01/28/25 22:41
Complete Blood Count/With Diff Urgent
Comprehensive Metabolic Panel Urgent
Lipase Urgent
01/28/25 22:53
Urinalysis Reflex To Culture Urgent
Date Specimen was Collected: 01/28/25
Time Specimen was Collected: 22:51
Urine Microscopic Reflex Cult Urgent
Urine Culture Urgent
TOM Source: U
Specimen Description:
Date Specimen was Collected: 01/28/25
Time Specimen was Collected: 22:51
01/28/25 23:06
HYDROmorphone [Dilaudid] 0.25 mg IV NOW STA
Renal Only US [US Renal Only W/O Bladder] Urgent
Comment:
Reason For Exam: Right flank pain
US Abdomen Complete/Upper Urgent
Comment:
Reason For Exam: RUQ pain
01/29/25 00:09
EKG [Electrocardiogram (*1)] Urgent
Reason for Study: Chest Pain
EKG- Treatment ONCE
01/29/25 00:20
Troponin I Urgent
01/29/25 00:37
HYDROmorphone [Dilaudid] 0.25 mg IV NOW STA
01/29/25 00:45
HYDROmorphone [Dilaudid] 0.5 mg IV NOW STA
01/29/25 00:47
Piperacillin/Tazo 3.375 Gram [Zosyn] 3.375 gram in 50 ml IV NOW
01/29/25 02:03
HYDROmorphone [Dilaudid] 1 mg IV NOW STA
01/29/25 02:14
Admit/Transfer Patient As Directed
Co-Sign Provider:
Level of Care: Inpatient admission
Assign to:: Medical/Surgical
Physician / Group: Edwin
Diagnosis: abdominal pain
Reason for Hospitalization: acute abdominal pain
Expected length of stay greater than two midnights?: Yes
ELOS- Estimated Length of Stay in days: 2
I certify the patient meets the requirements for IP care: Yes
PRN Pain Medication Management As Directed
May give lesser potent ordered pain med per pt: Yes
preference::
Protocol:: Medication orders for pain may be administered in a
manner that supports deferring to patient preference
when the pt is:
- Requesting an ordered lesser potent pain medication.
Least to most potent pain medications are defined
as: acetaminophen < NSAID < tramadol < opioids
(morphine, oxycodone, hydromorphone).
- Requesting a lesser dose of the same medication IF
ORDERED.
- Requesting a less intrusive route of administration
if both routes are prescribed by the provider (PO <
IV).
01/29/25 02:15
Code Status As Directed
Resuscitation Status: Do not resuscitate
Reached after discussion with pt or family/Healthcare POA: Yes
01/29/25 02:16
DNR Bracelet Application ONCE
01/29/25 03:00
Flush (0.9% Sodium Chloride) [Flush (Nss)] See Dose Instructions IV PER PROTOCOL
01/29/25 03:54
Acetaminophen [Tylenol] 650 mg PO Q4HPRN PRN
Bisacodyl [Dulcolax] 10 mg RECTAL [id number] PRN
Dextrose 5%/Lactringers 1000ML [D5lr] 1,000 ml IV 100 mls/hr
HYDROmorphone [Dilaudid] 0.5 mg IV Q4HPRN PRN
Nitroglycerin Sublingual [Nitrostat (Sublingual)] 0.4 mg SL Q5MPRN PRN
Ondansetron Injectable [Zofran] 4 mg IV Q6HPRN PRN
01/29/25 03:54
Hida Scan [NM Hepatobiliary (hida)] Routine
Comment:
Reason For Exam: abd pain, u/s w gb dist only, eval acute ken
Activity As Directed
Activity Level: With Assistance
Vital Signs As Directed
Frequency: Per unit guidelines
Pulse Ox/spot Check [RESP] Routine
Quantity: 1
DX Deep Vein Thrombosis Video Routine
01/29/25 05:16
Basic Metabolic Panel IN AM
Complete Blood Count/No Diff IN AM
01/29/25 Breakfast
NPO
Allow oral meds: Yes
Allow clear liquids: Sips of Clears
NPO with Ice Chips: Yes
01/29/25 08:00
Alprazolam [Xanax] 0.25 mg PO DAILY
Aspirin Chewable [Low Strength Aspirin] 81 mg PO DAILY
Escitalopram Oxalate [Lexapro] 20 mg PO DAILY
Heparin 5,000 units SC Q8
ISOSORBIDE MONOnitrate ER [Imdur (Extended Release)] 30 mg PO DAILY
Metoprolol Xl [Toprol Xl] 25 mg PO DAILY
Polyethylene Glycol Powder [Miralax] 17 grams PO DAILY
Pregabalin [Lyrica] 50 mg PO BID@0800,1800
01/29/25 10:00
Piperacillin/Tazo 2.25 Gram [Zosyn] 2.25 grams in 50 ml IV Q8H
01/29/25 22:00
Atorvastatin [Lipitor] 40 mg PO HS
Famotidine [Pepcid] 20 mg PO HS
Abnormal Lab Results
01/28/25 01/28/25
22:41 22:53
RBC 3.48 L 10^6/uL
(4.70-6.10)
Hgb 10.3 L g/dL
(13.0-18.0)
Hct 30.9 L %
(39.0-52.0)
Plt Count 128 L 10^3/uL
(130-400)
Absolute Lymphs (auto) 1.1 L 10^3/uL
(1.2-3.4)
Absolute Monos (auto) 0.7 H 10^3/uL
(0.1-0.6)
Lymphocytes % 16.2 L %
(20.5-51.1)
Monocytes % 10.0 H %
(1.7-9.3)
BUN 58 H mg/dl
(9-20)
Creatinine 3.3 H mg/dL
(0.7-1.3)
Glucose 128 H mg/dl
(70-99)
Ur Occult Blood Reflex 2+ A
(Negative)
Leukocyte Esterase Rfl 3+ A
(Negative)
Urine WBC (Reflex) 40-50 A /HPF
(0-5)
Urine Bacteria (Reflex) Few A
(Negative)
Urine Albumin (Reflex) 2+ A
(Neg - Trace)
01/28/25 22:41
01/28/25 22:41
Vital Signs
Initial and Last Documented VS:
Initial Vital Signs
Temp Pulse Resp BP Pulse Ox
97.9 F 68 18 161/69 99
01/28/25 22:29 01/28/25 22:29 01/28/25 22:29 01/28/25 22:29 01/28/25 22:29
Last Documented Vital Signs
Temp Pulse Resp BP Pulse Ox
97.8 F 65 18 105/51 94
01/29/25 21:52 01/29/25 21:52 01/29/25 21:52 01/29/25 21:52 01/29/25 21:52
MDM/Problems Addressed
Differential Diagnosis Includes:
Not limited to: Biliary colic, acute cholecystitis, choledocholithiasis, pancreatitis, pyelonephritis, ureterolithiasis, zoster, etc.
MDM/Problems Addressed:
84-year-old male presenting with acute onset right flank pain rating into right upper abdomen associated with nausea/vomiting. No dysuria, hematuria, fevers. Vital stable on arrival�she is afebrile. Physical exam as above. Patient moderately
uncomfortable with pain although nontoxic-appearing. Abdomen soft with reproducible tenderness in right upper flank/right upper quadrant. No rebound tenderness or guarding. Cardio/pulmonary assessment unremarkable. Differential broad at this
time although considerations include possible kidney stone/pyonephritis or intra-abdominal pathology including biliary colic or acute cholecystitis or other. Will check labs, urinalysis. Will obtain ultrasound abdomen/kidneys. Will treat pain and
closely monitor.
Update: Patient with very little improvement in symptoms following IV Dilaudid. Will give additional dose of IV pain medicine. Labs reviewed. No leukocytosis. Chronic anemia noted. Acute on chronic renal insufficiency noted with creatinine of
3.3. On discussion with patient�he states his creatinine last week was 3.03. Patient did begin complaining of chest discomfort so a troponin was added on which was undetectable. EKG also nonischemic. Ultrasound pending.
Update: Ultrasound shows sludge in gallbladder without any clear indication of acute cholecystitis. No evidence of obstructing stone on renal ultrasound. Urine somewhat equivocal for infection with 40�50 WBC and 3+ leukocyte esterase although
nitrate negative with few bacteria. Overall impression is likely biliary colic given patient is afebrile with no leukocytosis and normal liver enzymes. However�UTI/pyelonephritis would be additional consideration. Patient is having intractable
upper abdominal pain not responding to multiple rounds of IV narcotic medication. Patient will likely require a HIDA scan to rule out acute cholecystitis. Will admit patient to hospitalist for further evaluation, general surgery consult. Will
cover patient with IV Zosyn for possible early acute cholecystitis/UTI. Patient accepted to hospitalist service in stable condition.
Chronic conditions affecting care:
Stage IV CKD, CAD, hypertension, history of kidney stones
Acute Exacerbation and/or Progression of Chronic Illness:
Acutely hypertensive, biliary colic
*Radiology
Radiology exam reviewed: radiology read reviewed
*Pulse Oximetry
Patient hypoxic: no
*EKG
Interpreted by ED Provider?: Yes
EKG Intrepretation Date: 01/29/25
Interpretation: abnormal
Comparison EKG: changes noted
Heart Rate: 69
Rate: normal
Rhythm: sinus
[place]: normal axis
Ischemia: non-specific ST changes
*L[employer]id [employer] Operator Interpretation
Rate: [employer]- N/A
*Critical Care Note
Total Time (30-74mins, 75-104mins- exclusive of procedures): Not Applicable
Data Reviewed
Review of Other/Old Records Reveals: Radiology Studies (CT report 05/10/24 which shows gallstones)
Source: previous radiology exam
Patient Management
Discussion with other providers: Hospitalist
Escalation/DeEscalation of care consider admission/obs:
Admit for IV antibiotics, HIDA scan to rule out acute cholecystitis
ED Attending Note
-
Portions of this chart may have been created with voice recognition software.� Occasional wrong word or��sound alike� substitutions may have occurred due to the inherent limitations of voice recognition software.
Discharge Plan
Departure
Patient Disposition: Admit
Date of Disposition: 01/29/25
Time of Disposition: 00:52
Presentation/result/management discussed w/ accepting MD/DO: Hospitalist
Discharge Problem:
Biliary colic
Interventions
Interventions:
*Risk Screen - Suicide Last Done: 01/28/25 22:33
*General Assessment Last Done: 01/28/25 22:33
*Neglect/Abuse Screening Last Done: 01/28/25 22:33
*ED- Fall Risk Assessment Last Done: 01/28/25 22:33
*ED COVID-19 Vaccine History Last Done: 01/28/25 22:33
*Nursing Disposition Last Done: 01/29/25 07:32
WO-Cmyinh-Djknrgczlr Assessment Last Done: 01/28/25 23:23
[2025-01-29] VITALS (17 sets, daily range): BP systolic 20–176; BP diastolic 49–79; BMI 27.7
[2025-01-29 00:50] LABS: Troponin I < 0.012 ng/ml
[2025-01-29] MEDS: DILAUDID 0.5 MG IV ×2 (00:54→05:14)
[2025-01-29] MEDS: ZOSYN 50 IV ×3 (01:27→18:09)
--- NOTE | 2025-01-29 01:40 | HPS.HSE ---
Family Physician
-
Family Physician: Adarsh Foy
Chief Complaint
-
Abdominal pain
History of Present Illness
This is a 84-year-old male with extensive past medical history notable for CAD status post CABG, prostate cancer status post TURP, recurrent bladder cancer status post TURP, COPD, MGUS, irritable bowel syndrome and GERD who presents to the emergency
department with abdominal pain.
Patient reports onset of abdominal pain about 4 hours prior to coming to the emergency department. He localizes pain to the left flank/back. He reports nausea but denies any vomiting. He denies any diarrhea. He denies any fevers or chills. He
denies any urinary symptoms. He denies any sweats.
Patient reported that he had a scan very recently at [place] which showed gallstones in his gallbladder with no acute cholecystitis at that time. He also reported that his last creatinine was around 3.0 very recently and it has been worsening over the
last several months due to urinary retention/bilateral renal ureteral obstruction. He was offered chronic indwelling urinary cath versus nephrostomy tubes which she rejected both.
In the emergency department the patient was afebrile, pressure of 176/73 with a pulse of 69 and she is satting at 98% on room air.
CBC was unremarkable white count 6.5 hemoglobin 10.3 and platelet 128. The electrolytes were all normal. BUN and creatinine were abnormal with a creatinine of 3.3 up from a baseline of around 1.4-1.8 a year ago.
LFTs were completely normal. Lipase was normal. UA was positive for leukocyte esterase, few bacteria and WBCs.
Medical History
Past Medical History
Past Medical History: Reports Other
Additional Past Medical History:
lumbar spinal stenosis
bilateral renal calculi
bladder cancer s/ p /TURB
BPH status post TURP 2021
CAD/DC/CABG x 3 vessel, CABG x 1 vessel 2017
HTN
Orthostatic hypotension
HLD
PE
asthma,
GERD
esophageal stricture with history of swallowing difficulties
IBS
OA
anxiety/ depression
Past Surgical History: Reports Other
Additional Past Surgical History:
Right CTR
CABG times 10/09/2017, CABG x 3
Bilateral cataract extraction
Dental implants
TURP 2021
TURB 2/2 bladder cancer
Social History
Tobacco: Non-smoker
Alcohol: None
Drug: None
Personal:
Living: With Family
Employment: Retired
Family History
Family History: Other (Father AAA, mother CVA)
Allergies / Home Medications
Allergies reflects when Allergies were last updated in [employer].
Home Medications with original date entered in [employer]
Allergy/Medication List:
Allergies
Allergy/AdvReac Type Severity Reaction Status Date / Time
ezetimibe Allergy Unknown Unknown Verified 01/28/25 22:28
lisinopril Allergy Unknown Unknown Verified 01/28/25 22:28
Sulfa (Sulfonamide Allergy Unknown Unknown Verified 01/28/25 22:28
Antibiotics)
Home Medications
Bifidobacterium infantis 4 mg capsule (Align (B.infantis)) 4 mg PO DAILY probiotic 01/01/22
alprazolam 0.25 mg tablet 0.25 mg PO BID@1200,2200 anxiety 01/01/22
escitalopram oxalate 20 mg tablet 20 mg PO DAILY depression/anxiety 01/01/22
famotidine 20 mg tablet 20 mg PO HS Gastrointestinal Issue 01/01/22
aspirin 81 mg chewable tablet 81 mg PO DAILY Blood Clot Prevention/Tx 01/11/23
pregabalin 50 mg capsule 50 mg PO BID@0800,1800 Neurological Condition 05/10/24
rosuvastatin 40 mg tablet 20 mg PO HS High Cholesterol 05/10/24
polyethylene glycol 3350 17 gram oral powder packet (HealthyLax) 17 g PO DAILY Constipation #3 ea 05/11/24
docusate sodium 100 mg capsule (Colace) 200 mg PO HS 01/29/25
isosorbide mononitrate 30 mg tablet,extended release 24 hr 30 mg PO DAILY 01/29/25
Review of Systems
-
History Source: Patient
Constitutional: Reports No Symptoms
EENT: Reports No Symptoms
Respiratory: Reports No Symptoms
Cardiac: Reports No Symptoms
Abdomen/GI: Reports Abdominal Pain and Nausea
: Reports Flank Pain
Musculoskeletal: Reports No Symptoms
Skin: Reports No Symptoms
Neurological: Reports No Symptoms
Endocrine: Reports No Symptoms
Hematologic/Lymphatic: Reports No Symptoms
Psych: Reports No Symptoms
Physical Exam
Vital Signs
Vital Signs
Temp Pulse Resp BP Pulse Ox
97.9 F 69 19 176/73 96
01/28/25 22:29 01/29/25 01:00 01/28/25 23:15 01/29/25 00:09 01/29/25 01:00
Physical Exam
General: Well Developed, Well Nourished and Pain
HEENT: NormoCephalic, Anicteric, Moist mucous membranes and Atraumatic
Respiratory: Clear
Cardiac: S1/S2 and Regular Rhythm
Breast: Deferred by me
GI: Soft, Non Distended and Tender (minimal RUQ tenderness)
Rectal: Deferred by Provider
Genito-urinary: Costovertebral angle tend (mild R CVA tenderness)
Musculoskeletal: No Clubbing, No Cyanosis and No Edema
Skin: Warm
Neuro: AO x 3 and Nonfocal/grossly intact
Hematologic/Lymphatic: No Lymphadenopathy
Psych: Calm
Laboratory Results
-
01/28/25 22:41
01/28/25 22:41
Laboratory Results
Total Bilirubin 0.5 mg/dl (0.2-1.3) 01/28/25 22:41
AST 23 U/L (17-59) 01/28/25 22:41
ALT 17 U/L (0-50) 01/28/25 22:41
Alkaline Phosphatase 63 U/L (38-126) 01/28/25 22:41
Troponin I < 0.012 ng/ml 01/29/25 00:20
Lipase 178 U/L (23-300) 01/28/25 22:41
Data Reviewed
-
Ultrasound: Report Reviewed by me
Lab Data: Labs Reviewed by me
Old Records: Reviewed
Impression/Plan
-
IMPRESSION:
84-year-old was a past medical history significant for bladder cancer status post TURBT, prostate cancer status post TURP, CAD status post CABG, COPD not on home O2, prior left ureteroscopy status post stenting presenting to the emergency department
with 4 hours of right-sided flank pain and nausea. No fevers or chills. No vomiting. No diarrhea. Evaluation in the emergency department showed that he is afebrile hemodynamically stable without leukocytosis. He does have normal LFTs, normal
lipase. UA was positive. Patient had a right upper quadrant ultrasound with gallbladder distention moderately, gallbladder neck sludge. However no wall thickening or pericholecystic fluid and no Tena sign. CBD was within normal limits.
Overall clinical picture is more consistent with biliary colic versus pyelonephritis in the setting of patient's chronic urinary retention and positive UA. He shows no active signs of infection at this time.
PLAN:
1. Abdominal pain -presumed to be due to likely biliary colic but cannot rule out kidney infection. Acute cholecystitis less likely but still possible and patient is still very uncomfortable.
- admit to med/surg
- npo for now except meds and sips
- continue IV zosyn for possible acute ken
- dilaudid for pain, avoid morphine for now pending HIDA
- HIDA scan in am to help rule out acute ken
- patient poor candidate for surgery so unlikely surgery for just biliary colic
- surgical consult
- sent urine culture, continuing zosyn
2. Renal failure - worsening CKD. Outpatient cr was 3.1 one week ago. 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 CKD in part on the basis of chronic bladder retention and ureteral dysfunction for which he declined rodriguez
and nephrostomy/urostomy tubes
- gentle hydration for now
- avoid nephrotoxins
- renal dose medications
3. CAD - stable
- continue asa, statin, imdur
DVT PPX - heparin sq
Code status - DNR/DNI
[2025-01-29] MEDS: DILAUDID 1 MG IV (02:36)
[2025-01-29] MEDS: D5LR 1000 IV (05:15)
[2025-01-29 05:29] LABS: Hematocrit 33.5 % (39.0-52.0); Hemoglobin 11.3 g/dL (13.0-18.0); Mean Corp Hgb Conc. 33.7 g/dL (33.0-37.0); Mean Corpuscular Hgb 29.9 pg (27.0-31.0); Mean Corpuscular Volume 88.6 fL (80.0-94.0); Mean Platelet Volume 10.1 fL (7.4-10.4); Platelet Count 137 10^3/uL (130-400); Red Blood Cell Count 3.78 10^6/uL (4.70-6.10); Red Cell Dist. Width 13.9 % (11.5-14.5); White Blood Cell Count 8.7 10^3/uL (4.8-10.8)
[2025-01-29 06:00] LABS: Blood Urea Nitrogen 56 mg/dl (9-20); Calcium 9.4 mg/dl (8.4-10.2); Carbon Dioxide 23 mmol/L (22-30); Chloride 104 mmol/L (98-107); Estimated Creatinine Clearance 20 ml/min; Glucose 141 mg/dl (70-99); Sodium 141 mmol/L (135-145); eGFR 18.61
--- NOTE | 2025-01-29 10:12 | W.PN.HOSP.TC ---
Today's Communication/Plan
-
IV Abx
IVF
Assessment / Plan
Assessment / Plan
Physical Exam
General: Well Developed, Well Nourished and Pain
HEENT: NormoCephalic, Anicteric, Moist mucous membranes and Atraumatic
Respiratory: Clear
Cardiac: S1/S2 and Regular Rhythm
Breast: Deferred by me
GI: Soft, Non Distended and Tender (minimal RUQ tenderness)
Rectal: Deferred by Provider
Genito-urinary: Costovertebral angle tend (mild R CVA tenderness)
Musculoskeletal: No Clubbing, No Cyanosis and No Edema
Skin: Warm
Neuro: AO x 3 and Nonfocal/grossly intact
Hematologic/Lymphatic: No Lymphadenopathy
Psych: Calm
Abdominal pain -presumed to be due to likely biliary colic but cannot rule out kidney infection. Acute cholecystitis is possible, will f/w HIDA scan
c/w SAMI bx
c/w pain control
IVF
- surgical consult
#Possible uTI
- sent urine culture, continuing zosyn
#Acute Renal failure - worsening CKD IV . Outpatient cr was 3.1 one week ago. 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
and nephrostomy/urostomy tubes
- gentle hydration for now
- avoid nephrotoxins
- renal dose medications
Renal US Moderate to severe bilateral pelvicalyceal dilation with thinning of the overlying renal parenchyma, stable appearance compared to renal ultrasound of December 14, 2024.
Consult nephrology and urology
# CAD - stable
No chest pain
- continue asa, statin, imdur
DVT PPX - heparin sq
Code status - DNR/DNI
Total time spent to see the patient, examine the patient, review data and lab result, discuss treatment plan with patient, surgery, nursing staff around 55 minutes
Anticipated Discharge: > 48 hours
Subjective/Interval History
-
Date of Service: January 29, 2025
Pain in right flank area
Objective Data
-
Labs:
Laboratory Results
01/28/25 01/29/25
22:41 05:16
WBC 6.5 8.7
Hgb 10.3 L 11.3 L
Hct 30.9 L 33.5 L
Plt Count 128 L 137
Sodium 138 141
Potassium 4.5 5.0
Chloride 103 104
Carbon Dioxide 26 23
BUN 58 H 56 H
Creatinine 3.3 H 3.2 H
Glucose 128 H 141 H
Calcium 9.1 9.4
Total Bilirubin 0.5
AST 23
ALT 17
Alkaline Phosphatase 63
Vital Signs:
Vital Signs
Temp Pulse Resp BP Pulse Ox
98.2 F 91 18 139/79 100
01/29/25 07:30 01/29/25 07:30 01/29/25 07:30 01/29/25 07:30 01/29/25 07:30
--- NOTE | 2025-01-29 10:17 | PTCARENOTE ---
Received patient from ED around 0730 this AM. Pt ambulated from stretcher to bed in room. Pt oriented to room. All needs met at this time. Plan of care ongoing.
--- NOTE | 2025-01-29 10:39 | W.CON.NEPH ---
Consultation
-
Date/Time Consultation Requested: 01/29/2025 10:40 AM
Date/Time Consultation Performed: 01/29/2025 10:45 AM
Requesting Provider: Dr. Jules
Performing Provider: Dr. Bernal
Reason for Consultation: Acute kidney injury
Medical History
-
Chief Complaint: Acute kidney
History of Present Illness:
This is a 84-year-old male with extensive past medical history notable for CAD status post CABG on ASA and metoprolol, prostate cancer status post TURP, recurrent bladder cancer status post TURP, COPD, MGUS, irritable bowel syndrome and GERD who
presents to the emergency department with abdominal pain. Patient reports onset of abdominal pain about 4 hours prior to coming to the emergency department. He localizes pain to the left flank/back. He reports nausea but denies any vomiting. He
denies any diarrhea. He denies any fevers or chills. He denies any urinary symptoms. He denies any sweats.Patient reported that he had a scan very recently at [place] which showed gallstones in his gallbladder with no acute cholecystitis at that
time. He also reported that his last creatinine was around 3.0 very recently and it has been worsening over the last several months due to urinary retention/bilateral renal ureteral obstruction. He was offered chronic indwelling urinary cath
versus nephrostomy tubes which she rejected both. Now patient presents with acute renal failure with creatinine of 3.3 and nephrology was consulted. Renal U/S imaging reveals severe bilateral hydronephrosis with thinning of renal parenchyma
Past Medical History
lumbar spinal stenosis
bilateral renal calculi
bladder cancer s/ p /TURB
BPH status post TURP 2021
CAD/DE/CABG x 3 vessel, CABG x 1 vessel 2017
HTN
Orthostatic hypotension
HLD
PE
asthma,
GERD
esophageal stricture with history of swallowing difficulties
IBS
OA
anxiety/ depression
Past Surgical History: Reports Other
Additional Past Surgical History:
Right CTR
CABG times 10/09/2017, CABG x 3
Bilateral cataract extraction
Dental implants
TURP 2021
TURB 2/2 bladder cancer
Social History
Tobacco: Non-Smoker
Alcohol: None
Living: With Family
Family History
Family History: Not Pertinent
Allergies / Home Medications
Allergy/AdvReac Type Severity Reaction Status Date / Time
ezetimibe Allergy Unknown Unknown Verified 01/28/25 22:28
lisinopril Allergy Unknown Unknown Verified 01/28/25 22:28
Sulfa (Sulfonamide Allergy Unknown Unknown Verified 01/28/25 22:28
Antibiotics)
�Medication �Instructions �Recorded �Confirmed �Type
Bifidobacterium infantis 4 mg 4 mg PO DAILY probiotic 01/01/22 01/29/25 History
capsule (Align (B.infantis))
alprazolam 0.25 mg tablet 0.25 mg PO DAILY anxiety 01/01/22 01/29/25 History
escitalopram oxalate 20 mg tablet 20 mg PO DAILY depression/anxiety 01/01/22 01/29/25 History
famotidine 20 mg tablet 20 mg PO HS Gastrointestinal Issue 01/01/22 01/29/25 History
aspirin 81 mg chewable tablet 81 mg PO DAILY Blood Clot 01/11/23 01/29/25 History
Prevention/Tx
pregabalin 50 mg capsule 50 mg PO BID@0800,1800 05/10/24 01/29/25 History
Neurological Condition
polyethylene glycol 3350 17 gram 17 g PO DAILY Constipation #3 ea 05/11/24 01/29/25 Rx
oral powder packet (HealthyLax)
acetaminophen 500 mg tablet 1,000 mg PO TID PRN pain 01/29/25 01/29/25 History
atorvastatin 40 mg tablet 40 mg PO HS 01/29/25 01/29/25 History
docusate sodium 100 mg capsule 200 mg PO HS 01/29/25 01/29/25 History
(Colace)
isosorbide mononitrate 30 mg 30 mg PO DAILY 01/29/25 01/29/25 History
tablet,extended release 24 hr
metoprolol succinate 25 mg 25 mg PO DAILY 01/29/25 01/29/25 History
tablet,extended release 24 hr
nitroglycerin 0.4 mg sublingual 0.4 mg sublingual Q5-15M PRN chest 01/29/25 01/29/25 History
tablet pain
oxycodone-acetaminophen 5 mg-325 0.5 tab PO DAILY 01/29/25 01/29/25 History
mg tablet (Percocet)
Review of Systems
-
History Source: Patient
Abdomen/GI: Abdominal Pain
: Flank Pain
Physical Exam
Vital Signs
Vital Signs
Temp Pulse Resp BP Pulse Ox
98.2 F 91 18 139/79 100
01/29/25 07:30 01/29/25 07:30 01/29/25 07:30 01/29/25 07:30 01/29/25 07:30
Lab Results
01/29/25 05:16
01/29/25 05:16
WBC 8.7 10^3/uL (4.8-10.8) 01/29/25 05:16
RBC 3.78 10^6/uL (4.70-6.10) L 01/29/25 05:16
Hgb 11.3 g/dL (13.0-18.0) L 01/29/25 05:16
Hct 33.5 % (39.0-52.0) L 01/29/25 05:16
Plt Count 137 10^3/uL (130-400) 01/29/25 05:16
Sodium 141 mmol/L (135-145) 01/29/25 05:16
Potassium 5.0 mmol/L (3.5-5.1) 01/29/25 05:16
Chloride 104 mmol/L (98-107) 01/29/25 05:16
Carbon Dioxide 23 mmol/L (22-30) 01/29/25 05:16
BUN 56 mg/dl (9-20) H 01/29/25 05:16
Creatinine 3.2 mg/dL (0.7-1.3) H 01/29/25 05:16
eGFR 18.61 01/29/25 05:16
Glucose 141 mg/dl (70-99) H 01/29/25 05:16
Calcium 9.4 mg/dl (8.4-10.2) 01/29/25 05:16
Albumin 4.3 g/dl (3.5-5.0) 01/28/25 22:41
Physical Exam
General: AOx3, Nontoxic , NAD
HEENT: PERRL, EOMI, Anicteric, Conjunctivae Clear, Ear/Nose Intact, Hearing Normal, Oropharynx Clear/Moist, Dentition Intact, Facial Symmetry, Neck Supple, Neck: Trachea Midline, No JVD and No Thyromegaly, no Bruits
Respiratory: Clear to auscultation bilaterally with normal lung exersion
Cardiac: S1/S2 and Regular Rate/Rhythm
Breast: Deferred by me
Abdomen: Soft, tender VINICIO, Nondistended, Normal Bowel Sounds and No Hepatosplenomegaly
Rectal: Deferred by Provider
Genito-urinary: Right CVA tenderness
Extremities: No Clubbing, No Cyanosis and No Edema
Skin: No Rash or open lesions
Neuro: Nonfocal/Grossly Intact, CN II-XII (Intact) and Strength (Musculoskeletal exam 5 out of 5 both upper and lower extremities)
Hematologic/Lymphatic: No Cervical Lymphadenopathy, No Submandibular Lymphadenopathy and No Supraclavicular Lymphadenopathy
Psych: Mood/afflect pleasant, Insight/judgement good and Appropriate
Vascular: plus 1 pedal and radial pulses
Data Reviewed
-
Ultrasound: Report Reviewed by me (Renal ultrasound report reviewed bilateral hydronephrosis with bilateral parenchymal thinning)
Labs: Labs Reviewed by me (BMP CBC urinalysis)
Old Records: Reviewed (Reviewed previous outpatient creatinine 3.11-week prior, creatinine 1.1 on 05/21/24)
Assessment/Plan
-
Impression:
JOANNA (with bilateral hydronephrosis)
Coronary artery disease
CABG times 10/09/2017, CABG x 3
Bilateral cataract extraction
Dental implants
TURP 2021
TURB 2/2 bladder cancer
lumbar spinal stenosis
bilateral renal calculi
bladder cancer s/ p /TURB
BPH status post TURP 2021
HTN
Orthostatic hypotension
HLD
PE hx
Asthma
GERD
esophageal stricture with history of swallowing difficulties
IBS
OA
anxiety/ depression
Plan:
JOANNA: With bilateral hydronephrosis
- Consult urology as etiology of renal failure appears to be due to acute on chronic obstruction if patient amendable to interventions
- Patient has rejected offers of Forte catheter or nephrostomy tube in the past so I do not see initiating dialysis for ESRD as an option either
- No acute dialysis required at this time, he has sought out other opinions at [facility] who as per daughter did not offer any other insight on his renal failure other than obstruction
- He resides in [place]
- I do not have anything else to offer
[2025-01-29] MEDS: TOPROL XL 25 MG PO (13:24)
[2025-01-29] MEDS: XANAX 0.25 MG PO (13:25)
[2025-01-29] MEDS: LEXAPRO 20 MG PO (13:25)
[2025-01-29] MEDS: IMDUR (EXTENDED RELEASE) 30 MG PO (13:25)
[2025-01-29] MEDS: LOW STRENGTH ASPIRIN 81 MG PO (13:25)
--- NOTE | 2025-01-29 13:48 | CON.GS ---
Addendum entered and electronically signed by Angelo Chavez MD 01/29/25 14:54:
I saw and examined the patient independently.
The resident's documentation was reviewed and I agree with the note, assessment and plan except where noted below.
Comment: This is an 84-year-old male with significant medical comorbidities who presents with right sided abdominal pain after eating. There was initial ultrasound was fairly benign but did note sludge at the neck of the gallbladder. Given his
exam and history a HIDA scan was performed which was positive confirming acute cholecystitis.
Will plan for a laparoscopic cholecystectomy in the OR today. He will waive his DNR perioperatively.
N.p.o., IV fluids, IV antibiotics.
Risks/Benefits/Alternatives, expected postoperative course and possible complications (bleeding, infection, injury to surrounding structures, acute/chronic pain) discussed at length. Patient wishes to proceed with surgery. All questions answered.
Consent obtained.
I spent 70 minutes in total for the care of this patient today including direct patient care and counseling, reviewing labs, imaging, coordination of care, as well as documentation.
Original Note:
Consultation
-
Date/Time Consultation Requested: 01/29/2025 10:14
Date/Time Consultation Performed: 01/29/2025 1:35 PM
Requesting Provider: Kyrie Berry
Performing Provider: Angelo Loredo
Reason for Consultation: Biliary Colic
Medical History
-
Chief Complaint: Right upper quadrant tenderness
History of Present Illness:
Patient is an 84-year-old male, DO NOT RESUSCITATE, from [facility] with a past medical history for coronary artery disease, bladder cancer status post TURP, prostate cancer status post TURP, COPD, MGUS, irritable bowel syndrome,
GERD who presents to the emergency department with abdominal pain. The pain started at 6 PM on 01/28/2025 and is rated as severe, intermittent, localized in the right flank and radiates to the right upper quadrant and into his right groin, not
relieved on positional change or rest. Not associated with any episodes of vomiting, diarrhea, fever, chills, shortness of breath. Patient reported that he had a scan recently at [place] which showed gallstones in his gallbladder with no acute
cholecystitis at that time. Patient has CKD with urinary retention/bilateral renal ureteral obstruction and was offered chronic indwelling urinary catheter versus nephrostomy tubes for which he rejected both.
On admission patient's temperature, pulse, and O2 sat were normal. Blood pressure was 176/73.
On admission patients labs showed white count of 6.5 and normal, hemoglobin of 10.3, platelet 128, electrolytes normal, creatinine was 3.3 from a baseline of 1.4-1.8 a year ago. LFTs normal, lipase normal. Urinalysis showed leukocyte Estrace, few
bacteria and WBCs
Abdominal ultrasound on 01/28/2025 showed sludge in the neck of the gallbladder without secondary signs to suggest acute cholecystitis and a negative sonographic Tena sign. No evidence for biliary duct dilatation. Moderate to severe bilateral
pelvicaliceal dilatation.
Patient also had HIDA scan done today, which was positive. No filling of the gallbladder and findings compatible with cystic duct obstruction and/or acute cholecystitis.
Past Medical History
Past Medical History: Other (See HPI)
Past Surgical History: Cardiac (CABG) and Urological (TURP for prostate/bladder cancer)
Social History
Tobacco: Non-Smoker
Alcohol: None
Drug: None
Personal:
Living: With Family
Employment: Retired
Family History
Family History: Reviewed & Not Pertinent
Allergies / Home Medications
Allergy/AdvReac Type Severity Reaction Status Date / Time
ezetimibe Allergy Unknown Unknown Verified 01/28/25 22:28
lisinopril Allergy Unknown Unknown Verified 01/28/25 22:28
Sulfa (Sulfonamide Allergy Unknown Unknown Verified 01/28/25 22:28
Antibiotics)
�Medication �Instructions �Recorded �Confirmed �Type
Bifidobacterium infantis 4 mg 4 mg PO DAILY probiotic 01/01/22 01/29/25 History
capsule (Align (B.infantis))
alprazolam 0.25 mg tablet 0.25 mg PO DAILY anxiety 01/01/22 01/29/25 History
escitalopram oxalate 20 mg tablet 20 mg PO DAILY depression/anxiety 01/01/22 01/29/25 History
famotidine 20 mg tablet 20 mg PO HS Gastrointestinal Issue 01/01/22 01/29/25 History
aspirin 81 mg chewable tablet 81 mg PO DAILY Blood Clot 01/11/23 01/29/25 History
Prevention/Tx
pregabalin 50 mg capsule 50 mg PO BID@0800,1800 05/10/24 01/29/25 History
Neurological Condition
polyethylene glycol 3350 17 gram 17 g PO DAILY Constipation #3 ea 05/11/24 01/29/25 Rx
oral powder packet (HealthyLax)
acetaminophen 500 mg tablet 1,000 mg PO TID PRN pain 01/29/25 01/29/25 History
atorvastatin 40 mg tablet 40 mg PO HS 01/29/25 01/29/25 History
docusate sodium 100 mg capsule 200 mg PO HS 01/29/25 01/29/25 History
(Colace)
isosorbide mononitrate 30 mg 30 mg PO DAILY 01/29/25 01/29/25 History
tablet,extended release 24 hr
metoprolol succinate 25 mg 25 mg PO DAILY 01/29/25 01/29/25 History
tablet,extended release 24 hr
nitroglycerin 0.4 mg sublingual 0.4 mg sublingual Q5-15M PRN chest 01/29/25 01/29/25 History
tablet pain
oxycodone-acetaminophen 5 mg-325 0.5 tab PO DAILY 01/29/25 01/29/25 History
mg tablet (Percocet)
Review of Systems
-
History Source: Patient
All other systems: Negative unless noted
Abdomen/GI: Abdominal Pain (Right upper quadrant) and Nausea
A 10 point review of systems was completed, and was negative except as per HPI.
Physical Exam
Vital Signs
Temp Pulse Resp BP Pulse Ox
98.2 F 88 18 139/76 100
01/29/25 07:30 01/29/25 13:24 01/29/25 07:30 01/29/25 13:24 01/29/25 07:30
01/28/25 01/29/25 01/30/25
06:59 06:59 06:59
Actual Weight 95.1 kg 92.533 kg
Body Mass Index (BMI) 27.7
Lab Results
01/29/25 05:16
01/29/25 05:16
WBC 8.7 10^3/uL (4.8-10.8) 01/29/25 05:16
Hgb 11.3 g/dL (13.0-18.0) L 01/29/25 05:16
Hct 33.5 % (39.0-52.0) L 01/29/25 05:16
Plt Count 137 10^3/uL (130-400) 01/29/25 05:16
Abs Immat Gran (auto) 0.0 10^3/uL (0-0.05) 01/28/25 22:41
Neutrophils % 71.3 % (42.2-75.2) 01/28/25 22:41
Physical Exam
General: Well Developed and Well Nourished
GI: Soft, Non Distended and Tender (Right upper quadrant tenderness on palpation)
Data Reviewed
-
CT Scan: Report Reviewed by me and Discussed with Physician
Ultrasound: Report Reviewed by me and Discussed with Physician
Labs: Discussed with Physician and Discussed with Nurse
Assessment / Plan
-
Suspected acute cholecystitis secondary to positive HIDA scan:
-Diagnosis based on clinical features, physical examination, imaging
-Original abdominal ultrasound was negative for secondary signs of acute cholecystitis. Follow-up HIDA scan was positive which showed no filling of the gallbladder and findings compatible with cystic duct obstruction and/or acute cholecystitis.
-On physical examination, there is tenderness to palpation of the right upper quadrant of the abdomen.
-Keep patient n.p.o. before anticipated surgery
-Continue IV Zosyn until surgery
-Continue pain control with analgesics as needed
- Stop subcutaneous heparin 6 hours before surgery
-Patient will be scheduled today for a laparoscopic cholecystectomy, risk/benefits/complications explained to patient. Patient consents for surgery.
Possible urinary tract infection:
- Urine cultures are pending
Acute kidney injury with bilateral hydronephrosis:
- Today creatinine is 3.2
- Renally dose medications
- Continue gentle IVF
- Further management of nephrology team
Stable coronary artery disease:
- Continue aspirin, statin, , toprol
- Imdur held
Anxiety/ depression:
- Continue the escitalopram/ alprazolam
DVT ppx- heparin subq
DNR
[2025-01-29] MEDS: D5/0.9% SODIUM CHLORIDE 1000 IV (14:18)
--- NOTE | 2025-01-29 14:23 | W.SUR.PREOP ---
Pre-Operative Surgical Note
-
I have examined this patient prior to the performance of the scheduled procedure.
The patient's condition is unchanged from the time of the current History and
Physical and the patient is able to undergo the scheduled procedure.
--- NOTE | 2025-01-29 16:42 | CM ---
Alert awake oriented patient who lives with his Irma who lives in [facility]. He is independent in all activities of daily living.Irma drives not pt.He uses a rollator and cane .Will need PT OT for dc planning.
[place] [facility]x / [facility] history
Pharmacy [facility]
PCP DR Solano
PLAN PT OT will need for dc planning.
--- NOTE | 2025-01-29 17:27 | W.IMMPOSTOP ---
Surgical Immed Post Op Note
-
Primary Surgeon: Angelo Chavez MD
Assisting Surgeon: Henri Sim MD (PGY1)
Pre-op Diagnosis: Acute cholecystitis
Post-op Diagnosis: Gangrenous cholecystitis
Procedure Performed:
1. Laparoscopic cholecystectomy with cholangiogram
2. Drainage of an intra-abdominal abscess
Anesthesia Type: General
Specimen / Cultures: Gallbladder and contents
Estimated Blood Loss: 23 cc
Complications: None
Operative Findings: Perforated, gangrenous cholecystitis with infected bile in the right upper quadrant. Initial attempt of dissection in the cystic triangle difficult due to degree of inflammation. We switched to a top-down cholecystectomy with
minimal violation of the gallbladder wall and no spillage of stones. A cystic artery was identified and clipped. The cystic duct/infundibulum junction was identified and ligated with a 0 PDS Endoloop. I ductotomy was made and a cholangiogram was
performed which showed normal biliary anatomy and no filling defects. The duct was ligated proximally with a 0 PDS Endoloop and divided. The epigastric port site had to be enlarged slightly to accommodate to surgical removal. The port site was
closed with 2 [id number] 0 PDS sutures. Surgicel was placed in the gallbladder fossa and a 19 Somali round Tobi drain was introduced the right lower lateralmost port and draped across our surgical bed. This was secured to the skin with a 3-0
nylon suture.
POST OP PLAN:
Imaging: None
Labs: Routine AM
Diet: clear
Analgesia: Tylenol 650mg q6 Lilli, Aliya 5mg q6 PRN, Dilaudid 0.5mg q2h PRN
Neuro/vascular checks: q4h
AC/AP: Hold Therapeutic AC, Ok for DVT PPx
Activity: Ad Christie
Wound/Incisions/Drains: Routine, EAGLE drain teaching
Abx: Would continue antibiotics x 4 days
Dispo: RNF, anticipate discharge home with a drain in 1 to 2 days.
--- NOTE | 2025-01-29 17:31 | OR.RPT ---
Operative Report
Operative Report
Patient Name: Refugio Hussein
: 1940
Date of Operation: 01/29/2025
Preoperative Diagnosis: Acute cholecystitis
Postoperative Diagnosis: Gangrenous, perforated cholecystitis
Procedure(s):
1. Laparoscopic Cholecystectomy with Cholangiogram
2. Drainage of an intra-abdominal abscess
Surgeon(s):
Dr. Chavez
Manager Environmental Health And Safety(s):
Henri Sim MD (PGY1)
Anesthesia: General
Estimated Blood Loss: 23 cc
Urine Output: None
Drains/Lines/Implants: 19 Kazakh round Tobi drain in the gallbladder fossa.
Specimens:
1. Gallbladder and contents
HPI/Surgical Indications:
This is an 84-year-old male who presents with 1 day of postprandial right upper quadrant abdominal pain. Exam, labs and imaging were initially inconclusive but subsequent HIDA scan confirmed cholecystitis. Risks/Benefits/Alternatives were discussed
at length, and the patient agreed to proceed with surgery.
Operative Findings: Perforated, gangrenous cholecystitis with infected bile in the right upper quadrant. Initial attempt of dissection in the cystic triangle difficult due to degree of inflammation. We switched to a top-down cholecystectomy with
minimal violation of the gallbladder wall and no spillage of stones. A cystic artery was identified and clipped. The cystic duct/infundibulum junction was identified and ligated with a 0 PDS Endoloop. I ductotomy was made and a cholangiogram was
performed which showed normal biliary anatomy and no filling defects. The duct was ligated proximally with a 0 PDS Endoloop and divided. The epigastric port site had to be enlarged slightly to accommodate to surgical removal. The port site was
closed with 2 [id number] 0 PDS sutures. Surgicel was placed in the gallbladder fossa and a 19 Kazakh round Tobi drain was introduced the right lower lateralmost port and draped across our surgical bed. This was secured to the skin with a 3-0
nylon suture.
Procedure Description:
The patient was brought to the Operating Room and placed in the supine position with one arm tucked. Following uneventful induction of general endotracheal anesthesia, an orogastric tube was placed. The abdomen was prepped and draped in the usual
sterile fashion. A timeout was performed confirming the procedure, consent, and that IV antibiotics were infused and sequential compression devices were confirmed to be on. The abdomen was entered using a left subcostal Veress technique which
required a single pass followed by a 5 mm right upper quadrant Optiview trocar. Pneumoperitoneum to 15 mmHg pressure was obtained without difficulty and we confirmed that no injury had occurred during our entry. The patient was positioned in
reverse Trendelenberg and rotated with the right side up slightly. Two 5 mm trocars were then placed along the right subcostal margin, followed by a 12 mm port in the epigastrium. We noted mikie infected bile in the right upper quadrant,
gallbladder with patchy areas of necrosis concerning for perforation. The gallbladder was emptied using a decompressing needle through the fundus of the gallbladder with evacuation of hydrops before A locking grasping forceps was placed on the
fundus of the gallbladder where it was then retracted cephalad and to the right. Using appropriate grasping instruments, the peritoneum overlying the triangle of Calot was incised and extended superiorly on both the anterior and posterior
gallbladder sunshine. Though it appeared we were able to identify the infundibular junction, the cystic triangle was significantly scarred in and visualization of the appropriate planes was difficult. As a result we elected to do a top-down
cholecystectomy. The cystic artery was identified and clipped high on the gallbladder. We eventually were able to get to the infundibular/cystic duct junction, this was ligated properly with a 0 PDS Endoloop. A ductotomy was made and a
cholangiocatheter on an Membreno clamp was inserted into the cystic duct. A C-arm was draped and brought into the field. An intra-operative cholangiogram was performed and was noted to have:
No filling defects in the biliary tree
No significant biliary dilation
Brisk flow of contrast into the duodenum
Normal biliary anatomy
The catheter was then removed and the cystic duct was controlled with an additional 0 PDS Endoloop and divided. The gallbladder was then freed from the liver using electrocautery. There was some spillage of bile, but no spillage of stones. The
gallbladder bed was inspected and excellent hemostasis was obtained. The gallbladder was extracted through the 12 mm trocar site using an endocatch bag. The abdomen was again irrigated and excellent hemostasis was assured. A small 2 x 3 cm piece
of Surgicel was placed in the gallbladder fossa to ensure hemostasis. A 19 Kazakh round Tobi drain was then introduced through the right lateralmost port and secured at the skin with a 2-0 nylon suture after draping it across our surgical bed.
All remaining trocars were then removed and the pneumoperitoneum was evacuated. The 12 mm trocar site was closed using 0 PDS suture. All trocar sites were closed at the skin level using 4-0 Monocryl followed by Dermabond. Overall, the patient
tolerated the procedure well and was taken to the Recovery Room postoperatively in stable condition.
I was the attending physician and performed the procedure with assistance from the resident above who was instrumental in providing tension and counter tension during dissection, port placement and operating the camera. I was present for all
portions of the case, excluding skin closure.
Angelo Chavez MD
[2025-01-29] MEDS: PEPCID 20 MG PO (21:02)
[2025-01-29] MEDS: HEPARIN 5000 UNITS SC (21:02)
[2025-01-29] MEDS: LIPITOR 40 MG PO (21:03)
[2025-01-30] MEDS: ZOSYN 50 IV ×3 (02:51→17:40)
[2025-01-30] MEDS: D5/0.9% SODIUM CHLORIDE 1000 IV (03:23)
[2025-01-30] MEDS: TYLENOL 650 MG PO ×2 (04:43→17:55)
[2025-01-30 05:00] VITALS: BP 94/42
[2025-01-30 05:52] LABS: Blood Urea Nitrogen 56 mg/dl (9-20); Calcium 8.4 mg/dl (8.4-10.2); Carbon Dioxide 25 mmol/L (22-30); Chloride 108 mmol/L (98-107); Estimated Creatinine Clearance 18 ml/min; Glucose 141 mg/dl (70-99); Potassium 5.1 mmol/L (3.5-5.1); Sodium 140 mmol/L (135-145)
--- NOTE | 2025-01-30 07:30 | W.PN.UPDATE ---
Update Note
Progress Note Update
84M presents to ED w/ abdominal pain w/ nausea.
Denies F/C.
Denies voiding symptoms.
Patient notes worsening of creatinine in last several months - progression to ~3.0 due to h/o urinary retention and bilateral upper tract obstruction.
Chronic indwelling catheter vs. bilateral nephrostomy tubes were extensively discussed and offered - patient refused both options.
Cr 3.3 on admission (from baseline 1.4-1.8 in 2023).
Prior urologic h/o bladder cancer s/p TURBT and BPH s/p TURP (Dr. Kaminski).
H/o chronic left hydroureteronephrosis s/p stent placement (2022) and subsequent removal.
04/04/24: s/p surveillance cystoscopy - normal, widely patent resected prostatic urethra, BCG granulomatous changes.
12/27/24: outpatient F/U w/ Nephrology (Dr. Hills) => decompression of urinary tract recommended - rejected by patient. Not deemed candidate for HD w/o attempt at catheter/PCNs for observation of renal function.
Seen by Nephrology this admission - patient not deemed appropriate candidate for HD at this time, and he rejected recommendations of Forte catheter vs. bilateral nephrostomy tubes by IR.
01/29/25: s/p laparoscopic cholecystectomy and cholangiogram => perforated gangrenous cholecystitis noted intraop.
Recommendations:
- Advise placement of Forte catheter (vs. placement of bilateral nephrostomy tubes by IR)
- Trend Cr
- no indication for uro-surgical intervention
D/w Nephrology.
D/w Hospitalist.
[2025-01-30 07:39] VITALS: BP 103/59
[2025-01-30] MEDS: LEXAPRO 20 MG PO (07:52)
[2025-01-30] MEDS: LOW STRENGTH ASPIRIN 81 MG PO (07:52)
[2025-01-30] MEDS: XANAX 0.25 MG PO (07:52)
[2025-01-30] MEDS: IMDUR (EXTENDED RELEASE) 30 MG PO (07:52)
[2025-01-30] MEDS: TOPROL XL PO (07:53)
[2025-01-30] MEDS: HEPARIN 5000 UNITS SC ×2 (07:57→19:57)
--- NOTE | 2025-01-30 08:36 | W.PN.GS2 ---
Addendum entered and electronically signed by Angelo Chavez MD 01/30/25 08:41:
We will continue antibiotics x 4 days postop.
Appreciate urology recs.
Original Note:
Today's Communication / Plan
-
Okay for renal diet
Will need EAGLE drain teaching if being discharged today or tomorrow.
Assessment / Plan
-
This is an 84-year-old male postoperative day 1 from a laparoscopic cholecystectomy for gangrenous cholecystitis. Doing well, expected postoperative course.
Okay for renal diet, per primary.
Anticipate removing EAGLE on postoperative day 4 or 5, if he is still in house we will remove it here otherwise we will plan to remove it in the office later this week.
He is cleared from a surgery perspective for discharge but appreciate nephrology recs.
Surgery will follow peripherally, discharge instructions updated.
Time Spent
Total Time Spent with Patient (in minutes): 20
Subjective Data
-
Date of Service: January 30, 2025
Interval Events:
No acute events overnight. Slept well. Pain Controlled. Denies Nausea/Vomiting. Tolerating diet.
Objective Data
-
Intake and Output
01/29/25 01/30/25 01/31/25
06:59 06:59 06:59
Output Total 670 / 670
Balance -670 / -670
Output:
Drain Output (Total)
Right [place]
Urine, Voided 650 / 650
Vital Signs
Temp Pulse Resp BP Pulse Ox
97.5 F 66 14 103/59 98
01/30/25 07:39 01/30/25 07:53 01/30/25 07:39 01/30/25 07:53 01/30/25 07:39
Lab Results
01/29/25 05:16
01/30/25 05:08
Calcium 8.4 mg/dl (8.4-10.2) 01/30/25 05:08
Total Bilirubin 0.5 mg/dl (0.2-1.3) 01/28/25 22:41
AST 23 U/L (17-59) 01/28/25 22:41
ALT 17 U/L (0-50) 01/28/25 22:41
Alkaline Phosphatase 63 U/L (38-126) 01/28/25 22:41
Total Protein 7.1 g/dl (6.3-8.2) 01/28/25 22:41
Albumin 4.3 g/dl (3.5-5.0) 01/28/25 22:41
Physical Exam
-
GENERAL/NEURO: Awake, Alert, no distress
CHEST: Unlabored breathing on RA
ABDOMEN: Soft, Non-Tender, Non-Distended, EAGLE with serosanguineous drainage, incisions clean dry and intact.
Patient has a rodriguez catheter: No
Patient has a central line: No
--- NOTE | 2025-01-30 08:38 | W.PN.HOSP.TC ---
Today's Communication/Plan
-
No need for more IVF
c/w IV Abx
advancing diet
Bladder scan
Assessment / Plan
Assessment / Plan
Physical Exam
General: Well Developed, Well Nourished and Pain
HEENT: NormoCephalic, Anicteric, Moist mucous membranes and Atraumatic
Respiratory: Clear
Cardiac: S1/S2 and Regular Rhythm
Breast: Deferred by me
GI: Soft, Non Distended and Tender (minimal RUQ tenderness)
Rectal: Deferred by Provider
Genito-urinary: Costovertebral angle tend (mild R CVA tenderness)
Musculoskeletal: No Clubbing, No Cyanosis and No Edema
Skin: Warm
Neuro: AO x 3 and Nonfocal/grossly intact
Hematologic/Lymphatic: No Lymphadenopathy
Psych: Calm
# Acute gangrenous cholecystitis
s/p laparoscopic cholecystectomy with drain placement by Dr Chavez on 01/29. No complications reported
c/w IV Abx
Tolerating liquid diet
He denies nausea
Appreciate surgery help
#Possible uTI
- sent urine culture, continuing zosyn
#Acute Renal failure - worsening CKD IV . Outpatient cr was 3.1 one week ago. 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
and nephrostomy/urostomy tubes
- s/p IVF
- avoid nephrotoxins
- renal dose medications
Renal US Moderate to severe bilateral pelvicalyceal dilation with thinning of the overlying renal parenchyma, stable appearance compared to renal ultrasound of December 14, 2024.
Consult nephrology and urology
# CAD - stable
No chest pain
- continue asa, statin, imdur
DVT PPX - heparin sq
Code status - DNR/DNI
Total time spent to see the patient, examine the patient, review data and lab result, discuss treatment plan with patient, nursing staff around 55 minutes
Anticipated Discharge: 24 - 48 hours
Subjective/Interval History
-
Date of Service: January 30, 2025
He denies abdominal pain, nausea
No fevers
He reports chills at times
Objective Data
-
Labs:
Laboratory Results
01/30/25
05:08
Sodium 140
Potassium 5.1
Chloride 108 H
Carbon Dioxide 25
BUN 56 H
Creatinine 3.4 H
Glucose 141 H
Calcium 8.4
Vital Signs:
Vital Signs
Temp Pulse Resp BP Pulse Ox
97.5 F 66 14 103/59 98
01/30/25 07:39 01/30/25 07:53 01/30/25 07:39 01/30/25 07:53 01/30/25 07:39
I&O
01/29/25 01/30/25 01/31/25
06:59 06:59 06:59
Output Total 670 / 670
Balance -670 / -670
[2025-01-30] MEDS: LYRICA 25 MG PO (09:12)
--- NOTE | 2025-01-30 13:41 | W.PN.NEPH.PH ---
Today's Communication / Plan
-
JOANNA worsening with creatinine up to 3.4
[address] hold on metoprolol for systolic blood pressure less than 110
Will provide 500 cc normal saline bolus for hypotension
Assessment/Plan
-
Impression:
JOANNA (with bilateral hydronephrosis)
Coronary artery disease
CABG times 10/09/2017, CABG x 3
Bilateral cataract extraction
Dental implants
TURP 2021
TURB 2/2 bladder cancer
lumbar spinal stenosis
bilateral renal calculi
bladder cancer s/ p /TURB
BPH status post TURP 2021
HTN
Orthostatic hypotension
HLD
PE hx
Asthma
GERD
esophageal stricture with history of swallowing difficulties
IBS
OA
anxiety/ depression
Plan:
JOANNA: With bilateral hydronephrosis
-Creatinine up to 3.4 with notable hypotension postoperatively following cholecystectomy
- Consulted urology as etiology of renal failure appears to be due to acute on chronic obstruction if patient amendable to interventions: they recommended rodriguez
- Patient has rejected offers of Rodriguez catheter or nephrostomy tube in the past so I do not see initiating dialysis for ESRD as an option either
- No acute dialysis required at this time, he has sought out other opinions at [facility] who as per daughter did not offer any other insight on his renal failure other than obstruction
- He resides in [facility]
- Will provide 500 cc normal saline bolus due to hypotension, place holds on metoprolol
-
-
Date of Service: January 30, 2025
CC / HPI / ROS
-
Chief Complaint:
JOANNA
History of Present Illness:
Creatinine at 3.4
Status post cholecystectomy on 01/29/2025
Hypotensive
Review of Systems:
Nonoliguric
No chest pain or shortness of
Labs
-
Labs:
WBC 8.7 10^3/uL (4.8-10.8) 01/29/25 05:16
RBC 3.78 10^6/uL (4.70-6.10) L 01/29/25 05:16
Hgb 11.3 g/dL (13.0-18.0) L 01/29/25 05:16
Hct 33.5 % (39.0-52.0) L 01/29/25 05:16
Plt Count 137 10^3/uL (130-400) 01/29/25 05:16
Sodium 140 mmol/L (135-145) 01/30/25 05:08
Potassium 5.1 mmol/L (3.5-5.1) 01/30/25 05:08
Chloride 108 mmol/L (98-107) H 01/30/25 05:08
Carbon Dioxide 25 mmol/L (22-30) 01/30/25 05:08
BUN 56 mg/dl (9-20) H 01/30/25 05:08
Creatinine 3.4 mg/dL (0.7-1.3) H 01/30/25 05:08
eGFR 17.30 01/30/25 05:08
Glucose 141 mg/dl (70-99) H 01/30/25 05:08
Calcium 8.4 mg/dl (8.4-10.2) 01/30/25 05:08
Albumin 4.3 g/dl (3.5-5.0) 01/28/25 22:41
Physical Exam
-
Vital Signs:
Vital Signs
Temp Pulse Resp BP Pulse Ox
97.5 F 66 14 103/59 98
01/30/25 07:39 01/30/25 07:53 01/30/25 07:39 01/30/25 07:53 01/30/25 10:46
Cardiovascular:: Regular rate and rhythm
Respiratory:: Bilateral: CTA
Lung Excursion:: Normal
Abdomen:: Nontender and Soft
Bowel Sounds:: Decreased
Extremity Edema:: None: Bilateral:
Rodriguez Catheter: No
[2025-01-30] MEDS: NSS 500 IV (14:19)
[2025-01-30 15:09] VITALS: BP 107/55
[2025-01-30 15:36] VITALS: BP 118/59; PULSE 63
[2025-01-30] MEDS: DILAUDID 0.5 MG IV (19:57)
[2025-01-30] MEDS: LIPITOR 40 MG PO (21:04)
[2025-01-30 23:00] VITALS: BP 105/55
[2025-01-31] MEDS: ZOSYN 50 IV ×3 (01:12→17:11)
[2025-01-31 06:07] LABS: Blood Urea Nitrogen 54 mg/dl (9-20); Calcium 8.4 mg/dl (8.4-10.2); Carbon Dioxide 24 mmol/L (22-30); Chloride 112 mmol/L (98-107); Estimated Creatinine Clearance 20 ml/min; Glucose 92 mg/dl (70-99); Potassium 4.2 mmol/L (3.5-5.1); Sodium 142 mmol/L (135-145); eGFR 18.61
[2025-01-31] MEDS: DILAUDID 0.5 MG IV (06:21)
[2025-01-31] MEDS: LYRICA 25 MG PO (07:31)
[2025-01-31] MEDS: TOPROL XL 25 MG PO (07:31)
[2025-01-31] MEDS: LEXAPRO 20 MG PO (07:31)
[2025-01-31] MEDS: IMDUR (EXTENDED RELEASE) 30 MG PO (07:31)
[2025-01-31] MEDS: XANAX 0.25 MG PO (07:31)
[2025-01-31] MEDS: LOW STRENGTH ASPIRIN 81 MG PO (07:32)
[2025-01-31] MEDS: HEPARIN 5000 UNITS SC ×2 (07:32→21:33)
[2025-01-31 07:33] VITALS: BP 121/57
[2025-01-31 07:57] LABS: Hematocrit 27.6 % (39.0-52.0); Hemoglobin 9.1 g/dL (13.0-18.0); Mean Corpuscular Hgb 29.4 pg (27.0-31.0); Mean Corpuscular Volume 89.3 fL (80.0-94.0); Mean Platelet Volume 11.2 fL (7.4-10.4); Platelet Count 129 10^3/uL (130-400); Red Blood Cell Count 3.09 10^6/uL (4.70-6.10); Red Cell Dist. Width 14.9 % (11.5-14.5); White Blood Cell Count 5.6 10^3/uL (4.8-10.8)
[2025-01-31] MEDS: NSS 1000 IV ×2 (08:05→21:34)
[2025-01-31 08:16] LABS: ALT (SGPT) 119 U/L (0-50); AST (SGOT) 114 U/L (17-59); Albumin 3.7 g/dl (3.5-5.0); Alkaline Phosphatase 166 U/L (38-126); Direct Bilirubin 0.2 mg/dl (0.0-0.4); Total Bilirubin 0.4 mg/dl (0.2-1.3); Total Protein 6.4 g/dl (6.3-8.2)
--- NOTE | 2025-01-31 08:30 | W.PN.HOSP.TC ---
Today's Communication/Plan
-
Patient wants to talk directly to his urologist Dr. Kaminski(he was notified), keep n.p.o. for now. Mild IV fluid
repeat blood work in AM
Assessment / Plan
Assessment / Plan
Physical Exam
General: Well Developed, Well Nourished and Pain
HEENT: NormoCephalic, Anicteric, Moist mucous membranes and Atraumatic
Respiratory: Clear
Cardiac: S1/S2 and Regular Rhythm
Breast: Deferred by me
GI: Soft, Non Distended and not much tenderness right upper quadrant, positive costovertebral tenderness on the right side
Rectal: Deferred by Provider
Genito-urinary: Costovertebral angle tend ( R CVA tenderness)
Musculoskeletal: No Clubbing, No Cyanosis and No Edema
Skin: Warm
Neuro: AO x 3 and Nonfocal/grossly intact
Hematologic/Lymphatic: No Lymphadenopathy
Psych: Calm
# Right costovertebral tenderness
Patient also reports abdominal pain started after eating yesterday and continued throughout the night. He needed Dilaudid
I d/w urology and surgery. WBC remains normal. No fevers
Right nephrostomy tube can help severe hydronephrosis. Patient wants to talk directly to his urologist Dr. Kaminski(he was notified), await input from Dr. Kaminski
Mild elevation liver enzymes and lipase. Discussed with surgery, repeat blood work tomorrow and okay to resume clear liquid diet if no need to be n.p.o. per urology
# Acute gangrenous cholecystitis
s/p laparoscopic cholecystectomy with drain placement by Dr Chavez on 01/29. No complications reported
c/w IV Abx
Did not seem to tolerate diet
He denies nausea
Appreciate surgery help
# Not UTI. Urine cultures negative
#Acute Renal failure - worsening CKD IV . Outpatient cr was 3.1 one week ago. Patient's hyster driver Dr Aquino aware and has an appointment CKD in part on the basis of chronic bladder retention and ureteral dysfunction for which he declined Forte
and nephrostomy/urostomy tubes
- s/p IVF
- avoid nephrotoxins
- renal dose medications
Renal US Moderate to severe bilateral pelvicalyceal dilation with thinning of the overlying renal parenchyma, stable appearance compared to renal ultrasound of December 14, 2024.
Consult nephrology and urology
# CAD - stable
No chest pain
- continue asa, statin, Imdur
DVT PPX - heparin sq
Code status - DNR/DNI
Total time spent to see the patient, examine the patient, review data and lab result, discuss treatment plan with patient, consultants, nursing staff around 55 minutes
Anticipated Discharge: > 48 hours
Subjective/Interval History
-
Date of Service: January 31, 2025
He reports abdominal pain overnight and started after he
Objective Data
-
Labs:
Laboratory Results
01/31/25 01/31/25 01/31/25
05:07 05:08 07:25
WBC 5.6
Hgb 9.1 L
Hct 27.6 L
Plt Count 129 L
Sodium 142
Potassium 4.2
Chloride 112 H
Carbon Dioxide 24
BUN 54 H
Creatinine 3.2 H
Glucose 92
Calcium 8.4
Total Bilirubin 0.4 Cancelled
AST 114 H Cancelled
ALT 119 H Cancelled
Alkaline Phosphatase 166 H Cancelled
Vital Signs:
Vital Signs
Temp Pulse Resp BP Pulse Ox
97.4 F 63 14 121/57 98
01/31/25 07:33 01/31/25 07:33 01/31/25 07:33 01/31/25 07:33 01/31/25 07:33
I&O
01/30/25 01/31/25 02/01/25
06:59 06:59 06:59
Intake Total 1060 / 1060
Output Total 670 / 670
Balance -670 / -670 1040 / 1040
[2025-01-31 09:29] LABS: Lipase 692 U/L (23-300)
--- NOTE | 2025-01-31 11:30 | W.PN.NEPH.PH ---
Today's Communication / Plan
-
follow BMP
Assessment/Plan
-
Impression:
JOANNA (with bilateral hydronephrosis)
CKD4
Coronary artery disease
TURP 2021
TURB 2/2 bladder cancer
lumbar spinal stenosis
bilateral renal calculi
bladder cancer s/p TURB
BPH status post TURP 2021
HTN
Orthostatic hypotension
esophageal stricture with history of swallowing difficulties
anxiety/ depression
Plan:
He told me that his creatinine back in February 2024 had already risen into the 2.5 range. It has since continued to increase now to 3.3. He believes that he was told of obstructive issues back then. This would suggest that recoverability of function
is likely pretty low. However, there would be argument to try and preserve the remaining function with nephrostomy or Forte catheter.
He also said that he was told that 1 kidney is '' though he does not know which one. I currently cannot find a renal scan to suggest that differential function is significantly different. Other imaging studies would suggest close to symmetric
kidneys.
He is still trying to determine whether or not he would except a percutaneous nephrostomy or go to palliative care. He does not seem to wish to entertain Forte catheter.
Await urologic discussion per patient's request
Follow BMP
He was previously deemed not a dialysis candidate given his risk of obvious medical therapy. He he does have a aversion to high risk procedures and dialysis particularly with a central catheter would likely not be acceptable for him with its 20%
chance of infection.
Total time 40 minutes
-
-
Date of Service: January 31, 2025
CC / HPI / ROS
-
Chief Complaint:
JOANNA
History of Present Illness:
Creatinine at 3.2
Status post cholecystectomy on 01/29/2025
BP stable
LFTs elevated now
Review of Systems:
Nonoliguric
No chest pain or shortness of breath
Labs
-
Labs:
WBC 5.6 10^3/uL (4.8-10.8) 01/31/25 05:07
RBC 3.09 10^6/uL (4.70-6.10) L 01/31/25 05:07
Hgb 9.1 g/dL (13.0-18.0) L 01/31/25 05:07
Hct 27.6 % (39.0-52.0) L 01/31/25 05:07
Plt Count 129 10^3/uL (130-400) L 01/31/25 05:07
Sodium 142 mmol/L (135-145) 01/31/25 05:08
Potassium 4.2 mmol/L (3.5-5.1) 01/31/25 05:08
Chloride 112 mmol/L (98-107) H 01/31/25 05:08
Carbon Dioxide 24 mmol/L (22-30) 01/31/25 05:08
BUN 54 mg/dl (9-20) H 01/31/25 05:08
Creatinine 3.2 mg/dL (0.7-1.3) H 01/31/25 05:08
eGFR 18.61 01/31/25 05:08
Glucose 92 mg/dl (70-99) 01/31/25 05:08
Calcium 8.4 mg/dl (8.4-10.2) 01/31/25 05:08
Albumin Cancelled 01/31/25 07:25
Physical Exam
-
Vital Signs:
Vital Signs
Temp Pulse Resp BP Pulse Ox
97.4 F 63 14 121/57 98
01/31/25 07:33 01/31/25 07:33 01/31/25 07:33 01/31/25 07:33 01/31/25 07:33
Cardiovascular:: Regular rate and rhythm
Respiratory:: Bilateral: Coarse
Lung Excursion:: Normal
Abdomen:: Nontender and Soft
Bowel Sounds:: Normal
Extremity Edema:: None: Bilateral:
[2025-01-31] MEDS: NSS (PRESERVATIVE FREE) 10 ML IV ×2 (11:48)
[2025-01-31] MEDS: PROTONIX IV 40 MG IV (11:49)
--- NOTE | 2025-01-31 14:04 | CM ---
He lives with his Irma who lives in [facility].
Karen says VN Vs no needs
He requested [facility] .
Referral in care
ESTEFANIA Home with [facility]
[2025-01-31 15:00] VITALS: BP 119/60
--- NOTE | 2025-01-31 15:18 | W.PN.URO.CBU ---
Today's Communication / Plan
-
options d/w pt:
chronic indwelling Forte to reduce retrograde pressure causing Obstructive Nephropathy -- could be removed for sexual activity then new catheter self-inserted by patient or spouse
bilateral PCN tubes
do nothing -- which would permit progressive renal function loss, renal failure and
Assessment / Plan
-
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
Abdominal pains -- unlikely of urologic origin -- chronic obstructive is typically not painful
Diagnosis
-
Date of Service: January 31, 2025
-
Patient Diagnosis:
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
Subjective
-
right abdominal pains
Objective
-
Vital Signs
Temp Pulse Resp BP Pulse Ox
98.1 F 58 14 119/60 97
01/31/25 15:00 01/31/25 15:00 01/31/25 15:00 01/31/25 15:00 01/31/25 15:00
Intake and Output
01/30/25 01/31/25 02/01/25
06:59 06:59 06:59
Intake Total 1060 / 1060
Output Total 670 / 670 / 20
Balance -670 / -670 1040 / 1040
Intake:
Oral fluids 1060 / 1060
Output:
Drain Output (Total) 20 20 20 / 20
Right Gordo-Green 20 / 20
Urine, Voided 650 / 650
Other:
Number of approximated MODERATE 5
amounts of urine
Laboratory Results
01/31/25 05:07
01/31/25 05:08
Physical Exam
-
General - well developed, well nourished, no acute distress
--- NOTE | 2025-01-31 15:37 | W.PN.GS2 ---
Today's Communication / Plan
-
MRCP
Assessment / Plan
-
This is an 84-year-old male postoperative day 2 from a laparoscopic cholecystectomy for gangrenous cholecystitis.
New epigastric pain, mild elevation AST/ALT/ALP, lipase 692
Upon review of IOC, possible filling defect in distal CBD
Check MRCP to r/o choledocho
Back down to CLD for now
Surgery will follow
Trend LFTs
Anticipate removing EAGLE on postoperative day 4 or 5, if he is still in house we will remove it here otherwise we will plan to remove it in the office later this week.
Subjective Data
-
Date of Service: January 31, 2025
AFVSS, new epigastric pain/tenderness, denies n/v
Objective Data
-
Intake and Output
01/30/25 01/31/25 02/01/25
06:59 06:59 06:59
Intake Total 1060 / 1060
Output Total 670 / 670 20 / 20
Balance -670 / -670 1040 / 1040
Intake:
Oral fluids 1060 / 1060
Output:
Drain Output (Total) 20 20 20 / 20
Right Gordo-Green 20 / 20 20 / 20
Urine, Voided 650 / 650
Other:
Number of approximated MODERATE 5
amounts of urine
Vital Signs
Temp Pulse Resp BP Pulse Ox
98.1 F 58 14 119/60 97
01/31/25 15:00 01/31/25 15:00 01/31/25 15:00 01/31/25 15:00 01/31/25 15:00
Lab Results
01/31/25 05:07
01/31/25 05:08
Calcium 8.4 mg/dl (8.4-10.2) 01/31/25 05:08
Total Bilirubin Cancelled 01/31/25 07:25
Direct Bilirubin Cancelled 01/31/25 07:25
AST Cancelled 01/31/25 07:25
ALT Cancelled 01/31/25 07:25
Alkaline Phosphatase Cancelled 01/31/25 07:25
Total Protein Cancelled 01/31/25 07:25
Albumin Cancelled 01/31/25 07:25
Physical Exam
-
Gen: NAD
Abd: soft, incisions cdi, drain light ss, mod ttp epigastrium
Patient has a rodriguez catheter: No
Patient has a central line: No
[2025-01-31] MEDS: TYLENOL 650 MG PO (21:36)
[2025-01-31] MEDS: LIPITOR 40 MG PO (21:43)
[2025-01-31] MEDS: PEPCID 20 MG PO (21:43)
[2025-01-31 23:45] VITALS: BP 125/61
[2025-02-01] MEDS: ZOSYN 50 IV ×4 (01:28→23:00)
[2025-02-01] MEDS: TYLENOL 650 MG PO ×2 (05:44→19:08)
[2025-02-01 06:28] LABS: ALT (SGPT) 95 U/L (0-50); AST (SGOT) 49 U/L (17-59); Albumin 3.6 g/dl (3.5-5.0); Alkaline Phosphatase 141 U/L (38-126); Blood Urea Nitrogen 44 mg/dl (9-20); Calcium 8.7 mg/dl (8.4-10.2); Carbon Dioxide 22 mmol/L (22-30); Chloride 113 mmol/L (98-107); Estimated Creatinine Clearance 23 ml/min; Glucose 89 mg/dl (70-99); Lipase 104 U/L (23-300); Potassium 4.2 mmol/L (3.5-5.1); Sodium 144 mmol/L (135-145); Total Bilirubin 0.6 mg/dl (0.2-1.3); Total Protein 6.6 g/dl (6.3-8.2); eGFR 22.82
[2025-02-01 07:33] VITALS: BP 119/84
[2025-02-01] MEDS: HEPARIN 5000 UNITS SC ×2 (08:57→19:37)
[2025-02-01] MEDS: LOW STRENGTH ASPIRIN 81 MG PO (08:57)
[2025-02-01] MEDS: PROTONIX IV 40 MG IV (08:57)
[2025-02-01] MEDS: XANAX 0.25 MG PO (08:57)
[2025-02-01] MEDS: LEXAPRO 20 MG PO (08:57)
[2025-02-01] MEDS: LYRICA 25 MG PO (08:57)
[2025-02-01] MEDS: IMDUR (EXTENDED RELEASE) 30 MG PO (08:57)
[2025-02-01] MEDS: TOPROL XL 25 MG PO (08:57)
--- NOTE | 2025-02-01 09:33 | W.PN.HOSP.TC ---
Today's Communication/Plan
-
Good clinical improvement
MRI of abdomen and likely diet after
Assessment / Plan
Assessment / Plan
Physical Exam
General: Well Developed, Well Nourished and Pain
HEENT: NormoCephalic, Anicteric, Moist mucous membranes and Atraumatic
Respiratory: Clear
Cardiac: S1/S2 and Regular Rhythm
Breast: Deferred by me
GI: Soft, Non Distended and not much tenderness right upper quadrant, positive costovertebral tenderness on the right side
Rectal: Deferred by Provider
Genito-urinary: Costovertebral angle tend ( R CVA tenderness)
Musculoskeletal: No Clubbing, No Cyanosis and No Edema
Skin: Warm
Neuro: AO x 3 and Nonfocal/grossly intact
Hematologic/Lymphatic: No Lymphadenopathy
Psych: Calm
# Right costovertebral tenderness
seems to resolve
Patient reported that he talked with Dr. Kaminski 01/31 and was told pain was not related to his kidneys. Dr. Kaminski note as of 01/31 recommended intermittent Forte catheter/bilateral nephrostomy/chronic indwelling Forte::: All aiming to
reduce retrograde pressure causing Obstructive Nephropathy. Patient seems fully oriented and competent but could be that patient is having difficulty accepting the facts.
Plan per surgery to do MRI to rule out retained stone. Blood work consistent with improvement in liver enzymes and normal bilirubin and lipase, possibility that he passed the stone.
# Acute gangrenous cholecystitis
s/p laparoscopic cholecystectomy with drain placement by Dr Chavez on 01/29. No complications reported
c/w IV Abx
Appreciate surgery help
# Not UTI. Urine cultures negative
#Acute Renal failure - worsening CKD IV . Outpatient cr was 3.1 one week ago. Patient's collection correspondent Dr Aquino aware and has an appointment CKD in part on the basis of chronic bladder retention and ureteral dysfunction for which he declined Forte
and nephrostomy/urostomy tubes
- s/p IVF
- avoid nephrotoxins
- renal dose medications
Renal US Moderate to severe bilateral pelvicalyceal dilation with thinning of the overlying renal parenchyma, stable appearance compared to renal ultrasound of December 14, 2024.
Consult nephrology and urology
# CAD - stable
No chest pain
- continue asa, statin, Imdur
DVT PPX - heparin sq
Code status - DNR/DNI
Total time spent to see the patient, examine the patient, review data and lab result, discuss treatment plan with patient, consultants, nursing staff around 55 minutes
Anticipated Discharge: Within 24 hours
Subjective/Interval History
-
Date of Service: February 01, 2025
No chest pain
No abdominal pain
No nausea
Objective Data
-
Labs:
Laboratory Results
02/01/25
05:23
Sodium 144
Potassium 4.2
Chloride 113 H
Carbon Dioxide 22
BUN 44 H
Creatinine 2.7 H
Glucose 89
Calcium 8.7
Total Bilirubin 0.6
AST 49
ALT 95 H
Alkaline Phosphatase 141 H
Vital Signs:
Vital Signs
Temp Pulse Resp BP Pulse Ox
98.2 F 77 16 119/84 96
02/01/25 07:33 02/01/25 08:57 02/01/25 07:33 02/01/25 08:57 02/01/25 07:33
I&O
01/31/25 02/01/25 02/02/25
06:59 06:59 06:59
Intake Total 1060 / 1060 60 / 60
Output Total 1020 / 1020
Balance 1040 / 1040 -960 / -960
[2025-02-01] MEDS: NSS 1000 IV (10:18)
[2025-02-01 11:49] VITALS: BP 137/77
--- NOTE | 2025-02-01 12:22 | CM ---
CM met with Refugio to complete IA. Refugio lives with his Irma at [facility]. STANDARDS ANALYST Refugio reports being (I) amb and ADLs; Refugio does not drive, however , Irma, drives locally. He uses a rollator and cane . Will need PT OT for dc
planning.
History of SNF at [facility]
Pharmacy: [facility]
PCP: Law
PLAN: Cm to follow to coordinate all discharge needs. PT and OT will be need for dc planning.
--- NOTE | 2025-02-01 12:27 | W.PN.NEPH.PH ---
Today's Communication / Plan
-
Follow BMP
Assessment/Plan
-
Impression:
JOANNA (with bilateral hydronephrosis)
CKD4
Coronary artery disease
TURP 2021
TURB 2/2 bladder cancer
lumbar spinal stenosis
bilateral renal calculi
bladder cancer s/p TURB
BPH status post TURP 2021
HTN
Orthostatic hypotension
esophageal stricture with history of swallowing difficulties
anxiety/ depression
Plan:
He told me that his creatinine back in February 2024 had already risen into the 2.5 range. It has since continued to increase now to 3.3. He believes that he was told of obstructive issues back then. This would suggest that recoverability of function
is likely pretty low. However, there would be argument to try and preserve the remaining function with nephrostomy or Forte catheter.
Follow BMP, expectations would be that the creatinine would settle in the high 2 range
He has already discussed with urology his options. I reinforced that Forte catheter would be the most practical and simplest option
-
-
Date of Service: February 01, 2025
CC / HPI / ROS
-
Chief Complaint:
JOANNA
History of Present Illness:
JOANNA/Cr down to 2.7
Status post cholecystectomy on 01/29/2025
BP stable
LFTs elevated but improving
Review of Systems:
Nonoliguric
No chest pain or shortness of breath
Labs
-
Labs:
WBC 5.6 10^3/uL (4.8-10.8) 01/31/25 05:07
RBC 3.09 10^6/uL (4.70-6.10) L 01/31/25 05:07
Hgb 9.1 g/dL (13.0-18.0) L 01/31/25 05:07
Hct 27.6 % (39.0-52.0) L 01/31/25 05:07
Plt Count 129 10^3/uL (130-400) L 01/31/25 05:07
Sodium 144 mmol/L (135-145) 02/01/25 05:23
Potassium 4.2 mmol/L (3.5-5.1) 02/01/25 05:23
Chloride 113 mmol/L (98-107) H 02/01/25 05:23
Carbon Dioxide 22 mmol/L (22-30) 02/01/25 05:23
BUN 44 mg/dl (9-20) H 02/01/25 05:23
Creatinine 2.7 mg/dL (0.7-1.3) H 02/01/25 05:23
eGFR 22.82 02/01/25 05:23
Glucose 89 mg/dl (70-99) 02/01/25 05:23
Calcium 8.7 mg/dl (8.4-10.2) 02/01/25 05:23
Albumin 3.6 g/dl (3.5-5.0) 02/01/25 05:23
Physical Exam
-
Vital Signs:
Vital Signs
Temp Pulse Resp BP Pulse Ox
98.2 F 77 16 119/84 96
02/01/25 07:33 02/01/25 08:57 02/01/25 07:33 02/01/25 08:57 02/01/25 07:33
Cardiovascular:: Regular rate and rhythm
Respiratory:: Bilateral: Coarse
Lung Excursion:: Normal
Abdomen:: Nontender and Soft
Bowel Sounds:: Normal
Extremity Edema:: None: Bilateral:
--- NOTE | 2025-02-01 13:57 | W.PN.GS2 ---
Today's Communication / Plan
-
See plan
Assessment / Plan
-
This is an 84-year-old male postoperative day 2 from a laparoscopic cholecystectomy for gangrenous cholecystitis.
Epigastric pain resolved, LFGTs and lipase trending down
Check MRCP to ensure no choledocho
ADAT after the study if asymptomatic
Surgery will follow
Tentatively for drain removal tomorrow.
Subjective Data
-
Date of Service: February 01, 2025
No complaints, pain resolved, denies n/v, ambulating
Objective Data
-
Intake and Output
01/31/25 02/01/25 02/02/25
06:59 06:59 06:59
Intake Total 1060 / 1060 60 / 60
Output Total 1020 / 1020
Balance 1040 / 1040 -960 / -960
Intake:
Oral fluids 1060 / 1060 60 / 60
Output:
Drain Output (Total)
Right Gordo-Green
Urine, Voided 1000 / 1000
Other:
Number of approximated MODERATE 5
amounts of urine
Vital Signs
Temp Pulse Resp BP Pulse Ox
98.2 F 77 16 119/84 96
02/01/25 07:33 02/01/25 08:57 02/01/25 07:33 02/01/25 08:57 02/01/25 07:33
Lab Results
01/31/25 05:07
02/01/25 05:23
Calcium 8.7 mg/dl (8.4-10.2) 02/01/25 05:23
Total Bilirubin 0.6 mg/dl (0.2-1.3) 02/01/25 05:23
Direct Bilirubin Cancelled 01/31/25 07:25
AST 49 U/L (17-59) 02/01/25 05:23
ALT 95 U/L (0-50) H 02/01/25 05:23
Alkaline Phosphatase 141 U/L (38-126) H 02/01/25 05:23
Total Protein 6.6 g/dl (6.3-8.2) 02/01/25 05:23
Albumin 3.6 g/dl (3.5-5.0) 02/01/25 05:23
Physical Exam
-
Gen: NAD
Abd: soft, nt, nd, incisions cdi
Patient has a rodriguez catheter: No
Patient has a central line: No
[2025-02-01 14:50] VITALS: BP 136/68
--- NOTE | 2025-02-01 16:25 | W.PN.UPDATE ---
Update Note
Progress Note Update
Cross Coverage Update:
Alerted by RN, patient c/o diarrhea, on broad spectrum abx zosyn,
-probiotic ordered
-checking cdiff, if neg can consider prn imodium
--- NOTE | 2025-02-01 16:25 | PTCARENOTE ---
Pt c/o diarrhea. Pt informed this RN he has had 2 loose, brown BM's. MD carrillo aware, C diff specimen ordered and new order provided, see MAR. Will cont to monitor.
[2025-02-01] MEDS: FLORASTOR 250 MG PO (16:43)
--- NOTE | 2025-02-01 18:01 | PTCARENOTE ---
An/Syq 13 Nav/C2 Operator made aware of c diff specimen order. Private room slotted for patient. Pt informed to notify RN if have any additional bowel movements. Will pass information onto nightshift RN.
[2025-02-01] MEDS: LIPITOR 40 MG PO (22:00)
[2025-02-01 23:00] VITALS: BP 133/65
[2025-02-02] MEDS: TYLENOL 650 MG PO ×2 (03:38→07:52)
[2025-02-02] MEDS: ZOSYN 50 IV (05:01)
[2025-02-02 06:03] LABS: ALT (SGPT) 109 U/L (0-50); AST (SGOT) 55 U/L (17-59); Albumin 4.1 g/dl (3.5-5.0); Alkaline Phosphatase 282 U/L (38-126); Blood Urea Nitrogen 42 mg/dl (9-20); Calcium 8.8 mg/dl (8.4-10.2); Carbon Dioxide 21 mmol/L (22-30); Chloride 115 mmol/L (98-107); Direct Bilirubin 0.2 mg/dl (0.0-0.4); Estimated Creatinine Clearance 22 ml/min; Glucose 74 mg/dl (70-99); Sodium 146 mmol/L (135-145); Total Bilirubin 0.8 mg/dl (0.2-1.3); Total Protein 6.6 g/dl (6.3-8.2); eGFR 21.84
[2025-02-02 07:23] VITALS: BP 130/64
[2025-02-02] MEDS: PROTONIX IV 40 MG IV (07:42)
[2025-02-02] MEDS: NSS (PRESERVATIVE FREE) 10 ML IV (07:42)
[2025-02-02] MEDS: XANAX 0.25 MG PO (07:43)
[2025-02-02] MEDS: FLORASTOR 250 MG PO (07:43)
[2025-02-02] MEDS: TOPROL XL 25 MG PO (07:43)
[2025-02-02] MEDS: IMDUR (EXTENDED RELEASE) 30 MG PO (07:43)
[2025-02-02] MEDS: VISBIOME 1 CAP PO (07:43)
[2025-02-02] MEDS: HEPARIN 5000 UNITS SC (07:43)
[2025-02-02] MEDS: LOW STRENGTH ASPIRIN 81 MG PO (07:43)
[2025-02-02] MEDS: LYRICA 25 MG PO (07:43)
[2025-02-02] MEDS: LEXAPRO 20 MG PO (07:43)
[2025-02-02] MEDS: FLUSH (NSS) 2 FLUSH IV (07:54)
--- NOTE | 2025-02-02 08:36 | W.PN.GS2 ---
Today's Communication / Plan
-
EAGLE removed
Assessment / Plan
-
This is an 84-year-old male POD 4 from a laparoscopic cholecystectomy for gangrenous cholecystitis.
Epigastric pain resolved, tolerating diet
Normal bilirubin, mild transaminitis
EAGLE with minimal SSF.
MRCP without choledocholithiasis
+loose stools with negative c-diff
Plan:
EAGLE drain removed at bedside
Low fat diet
Day 4/4 of ABX
Ok to shower/OOB/Ambulate
Surgery to follow peripherally, please call with questions/concerns
Subjective Data
-
Date of Service: February 02, 2025
Patient seen and examined at bedside. Denies n/v. Has been passing loose stools. Tolerating diet. Minimal abdominal discomfort although there is some discomfort around the drain site.
Objective Data
-
Intake and Output
02/01/25 02/02/25 02/03/25
06:59 06:59 06:59
Intake Total 60 / 60 900 / 900
Output Total 1020 / 1020 130 / 130
Balance -960 / -960 770 / 770
Intake:
Oral fluids 60 / 60
IV fluids (Total) 800 / 800
IV piggybacks 100 / 100
Output:
Drain Output (Total) 20 / 20 30 / 30
Right Gordo-Green 20 / 20 30 / 30
Urine, Voided 1000 / 1000 100 / 100
Other:
Number of approximated LARGE 1
amounts of urine
Vital Signs
Temp Pulse Resp BP Pulse Ox
97.9 F 67 17 130/64 97
02/02/25 07:23 02/02/25 07:43 02/02/25 07:23 02/02/25 07:43 02/02/25 07:23
Lab Results
01/31/25:07
02/02/25 05:08
Calcium 8.8 mg/dl (8.4-10.2) 02/02/25 05:08
Total Bilirubin 0.8 mg/dl (0.2-1.3) 02/02/25 05:08
Direct Bilirubin 0.2 mg/dl (0.0-0.4) 02/02/25 05:08
AST 55 U/L (17-59) 02/02/25 05:08
ALT 109 U/L (0-50) H 02/02/25 05:08
Alkaline Phosphatase 282 U/L (38-126) H 02/02/25 05:08
Total Protein 6.6 g/dl (6.3-8.2) 02/02/25 05:08
Albumin 4.1 g/dl (3.5-5.0) 02/02/25 05:08
Physical Exam
-
Gen: NAD
Abd: soft, nt, nd, incisions cdi
EAGLE with ssf
Patient has a rodriguez catheter: No
Patient has a central line: No
--- NOTE | 2025-02-02 08:53 | W.PN.HOSP.TC ---
Today's Communication/Plan
-
DC planning
Assessment / Plan
Assessment / Plan
Physical Exam
General: Well Developed, Well Nourished and Pain
HEENT: NormoCephalic, Anicteric, Moist mucous membranes and Atraumatic
Respiratory: Clear
Cardiac: S1/S2 and Regular Rhythm
Breast: Deferred by me
GI: Soft, Non Distended and not much tenderness right upper quadrant, positive costovertebral tenderness on the right side
Rectal: Deferred by Provider
Genito-urinary: Costovertebral angle tend ( R CVA tenderness)
Musculoskeletal: No Clubbing, No Cyanosis and No Edema
Skin: Warm
Neuro: AO x 3 and Nonfocal/grossly intact
Hematologic/Lymphatic: No Lymphadenopathy
Psych: Calm
# Right costovertebral tenderness
seems to resolve
Repeat 02/01 MRCP without choledocholithiasis
. Patient seems fully oriented and competent but could be that patient is having difficulty accepting the facts.
Plan per surgery to do MRI to rule out retained stone. Blood work consistent with improvement in liver enzymes and normal bilirubin and lipase, possibility that he passed the stone.
# Acute gangrenous cholecystitis
s/p laparoscopic cholecystectomy with drain placement by Dr Chavez on 01/29. No complications reported
Status post IV Abx
RUQ drain removed 02/02 at bedside with no complications
Appreciate surgery help
# Not UTI. Urine cultures negative
#Acute Renal failure -progressive CKD IV . Outpatient cr was 3.1 one week ago. 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
and nephrostomy/urostomy tubes
- s/p IVF
- avoid nephrotoxins
- renally dose medications
Renal US Moderate to severe bilateral pelvicalyceal dilation with thinning of the overlying renal parenchyma, stable appearance compared to renal ultrasound of December 14, 2024.
Consulted nephrology and urology
# Severe bilateral hydronephrosis
Patient seems to be accepting to use Forte. We explained to him difference between citrate And Forte, he wanted to be trained to use Forte
Patient reported that he talked with Dr. Kaminski. Dr. Kaminski note as of 01/31 recommended intermittent Forte catheter/bilateral nephrostomy/chronic indwelling Forte: All aiming to reduce retrograde pressure causing Obstructive Nephropathy
# Hypernatremia, okay for diet
And water
# CAD - stable
No chest pain
- continue asa, statin, Imdur
DVT PPX - heparin sq
Code status - DNR/DNI
Total discharge time spent to see the patient, examine the patient, review data and lab result, discuss discharge plan with patient, , consultants, nursing staff around 67 minutes
Anticipated Discharge: Today
Subjective/Interval History
-
Date of Service: February 02, 2025
No pain in abdomen
No nausea
Objective Data
-
Labs:
Laboratory Results
02/02/25
05:08
Sodium 146 H
Potassium 4.0
Chloride 115 H
Carbon Dioxide 21 L
BUN 42 H
Creatinine 2.8 H
Glucose 74
Calcium 8.8
Total Bilirubin 0.8
AST 55
ALT 109 H
Alkaline Phosphatase 282 H
Vital Signs:
Vital Signs
Temp Pulse Resp BP Pulse Ox
97.9 F 67 17 130/64 97
02/02/25 07:23 02/02/25 07:43 02/02/25 07:23 02/02/25 07:43 02/02/25 07:23
I&O
02/01/25 02/02/25 02/03/25
06:59 06:59 06:59
Intake Total 60 / 60 900 / 900
Output Total 1020 / 1020 130 / 130
Balance -960 / -960 770 / 770
--- NOTE | 2025-02-02 11:30 | CM ---
Addendum entered by Merced Grier 02/02/25 12:05:
updated referral sent, called to [facility] and they are aware. Please fax clinicals to [phone]
Addendum entered by Merced Grier 02/02/25 12:00:
Patient now asking for [facility], Cm will send referral
Original Note:
Patient seen at bedside, CM completed IMM and signed form placed on chart, Patient requested [facility], tt sent to liaison and patient to go home with . CM will continue to follow for discharge planning needs.
Plan;home with [facility].
[2025-02-02] MEDS: ZOSYN IV (11:48)
--- NOTE | 2025-02-02 12:02 | PTCARENOTE ---
Pt refused afternoon dose of Zosyn. Pt stated, 'I have too much diarrhea, I do not want it'. Pt informed on importance of antibiotic. Pt refused indwelling Forte catheter education and placement. Pt informed of importance of catheter placement. Pt
refused teaching and stated, 'I do not want it, I know what the doctor said this morning and I still do not want it'. made aware.
--- NOTE | 2025-02-02 12:05 | W.PN.NEPH.PH ---
Today's Communication / Plan
-
Stable for discharge
Assessment/Plan
-
Impression:
JOANNA (with bilateral hydronephrosis)
CKD4
Coronary artery disease
TURP 2021
TURB 2/2 bladder cancer
lumbar spinal stenosis
bilateral renal calculi
bladder cancer s/p TURB
BPH status post TURP 2021
HTN
Orthostatic hypotension
esophageal stricture with history of swallowing difficulties
anxiety/ depression
Plan:
He had told me that his creatinine back in February 2024 had already risen into the 2.5 range. It has since continued to increase now to 3.3. He believes that he was told of obstructive issues back then. This would suggest that recoverability of
function is likely pretty low. However, there would be argument to try and preserve the remaining function with nephrostomy or Forte catheter.
Follow BMP, expectations would be that the creatinine would settle in the high 2 range: currently at 2.8
stable for discharge
He has already discussed with urology his options. I reinforced that Forte catheter would be the most practical and simplest option
He has nephrology follow-up as outpatient at [place], although we have seen him before and I will arrange follow-up as well
-
-
Date of Service: February 02, 2025
CC / HPI / ROS
-
Chief Complaint:
JOANNA
History of Present Illness:
JOANNA/Cr down to 2.8
Status post cholecystectomy on 01/29/2025
BP stable
LFTs elevated but improving
Review of Systems:
Nonoliguric
No chest pain or shortness of breath
Labs
-
Labs:
WBC 5.6 10^3/uL (4.8-10.8) 01/31/25 05:07
RBC 3.09 10^6/uL (4.70-6.10) L 01/31/25 05:07
Hgb 9.1 g/dL (13.0-18.0) L 01/31/25 05:07
Hct 27.6 % (39.0-52.0) L 01/31/25 05:07
Plt Count 129 10^3/uL (130-400) L 01/31/25 05:07
Sodium 146 mmol/L (135-145) H 02/02/25 05:08
Potassium 4.0 mmol/L (3.5-5.1) 02/02/25 05:08
Chloride 115 mmol/L (98-107) H 02/02/25 05:08
Carbon Dioxide 21 mmol/L (22-30) L 02/02/25 05:08
BUN 42 mg/dl (9-20) H 02/02/25 05:08
Creatinine 2.8 mg/dL (0.7-1.3) H 02/02/25 05:08
eGFR 21.84 02/02/25 05:08
Glucose 74 mg/dl (70-99) 02/02/25 05:08
Calcium 8.8 mg/dl (8.4-10.2) 02/02/25 05:08
Albumin 4.1 g/dl (3.5-5.0) 02/02/25 05:08
Physical Exam
-
Vital Signs:
Vital Signs
Temp Pulse Resp BP Pulse Ox
97.9 F 67 17 130/64 97
02/02/25 07:23 02/02/25 07:43 02/02/25 07:23 02/02/25 07:43 02/02/25 07:23
Cardiovascular:: Regular rate and rhythm
Respiratory:: Bilateral: Coarse
Lung Excursion:: Normal
Abdomen:: Nontender and Soft
Bowel Sounds:: Normal
Extremity Edema:: None: Bilateral:
Forte Catheter: No
--- NOTE | 2025-02-02 12:18 | VNURNOTE ---
[facility] liaison met w/patient and at bedside. Explained [facility] services, frequency, homebound status. Patient lives at [facility] and is interested in their [facility], PT services. JULIO CÉSAR [place] notified.
[2025-02-02 12:58] VITALS: BP 125/65
--- NOTE | 2025-02-02 13:22 | W.PN.UPDATE ---
Update Note
Progress Note Update
addendum
Patient initially agreed to have Forte catheter
Upon trying to educate patient, he told the nurse he did not want Forte. I went up to talk to the patient and his at the bedside. Patient and told me they would want to go home without urine catheter because they were planning to see his
urologist Dr. Kaminski this Wednesday. Patient reported that he would feel more comfortable with urologist nurse as he has been established patient with them. Patient verbalized understanding potential complications of progressive renal disease and
obstructive uropathy.
--- NOTE | 2025-02-02 13:24 | W.DCSUMMARY ---
Discharge Summary
Discharge Data
Date of Admission: 01/28/25
Date of Discharge: 02/02/25
-
Pending Results: No
Hospital Course
84 years old male who presented with abdominal pain. Patient had creatinine around 3.4 on admission. He reported chronic kidney disease with creatinine around 2 as baseline. Patient had abdominal ultrasound that was consistent with gallbladder
sludge, also showed bilateral hydronephrosis that seem to be progressed. HIDA scan was consistent with acute cholecystitis. Patient was evaluated by surgery. Patient underwent laparoscopic cholecystectomy with a drain placement for acute
gangrenous cholecystitis. Patient was given empiric antibiotics. Drain was removed later. Patient developed abdominal discomfort after starting diet with elevation in liver enzymes.. MRCP did not show choledocholithiasis. His symptoms improved
and he tolerated diet well. Regarding his obstructive nephropathy/uropathy. Patient was followed by banana grader and urologist. He received intravenous fluids and he was advised to have urinary catheter for obstructive uropathy. Patient declined
to have citrate catheter protocol/Forte catheter. Patient wanted to follow-up with his urologist Dr. Kaminski in the office to have Forte catheter. His creatinine stabilized around 2.8. Patient verbalized understanding to potential progressive
chronic kidney disease that might lead to end-stage renal failure and need to hemodialysis. Patient remained hemodynamically stable. He had loose stools and C. difficile test was negative. Patient was able to tolerate diet without GI symptoms.
He had PT evaluation. Patient was discharged home in a stable condition.
Discharge Plan
-
Patient Disposition: Home (Routine Discharge)
Discharge Diagnosis/Procedures: Gangrenous cholecystitis. Laparoscopic cholecystectomy with cholangiogram.
Acute kidney injury/chronic kidney disease stage IV with bilateral severe hydronephrosis we recommended urine catheterization/Forte catheter, but you declined please follow-up with your banana grader and urologist for further monitoring and
observation to avoid kidney failure.
Diet: As tolerated
Activity: No strenuous activity
Bathing Restrictions: OK to Shower
Blood Work: BMP in 4-5 days
Activity Restrictions/Additional Instructions:
Instructions following Laparoscopic Cholecystectomy
Please call [phone] if you have any questions or concerns after your surgery.
Wound Care:
Your incisions are covered with skin glue which will come off on its own in 5-10 days.
It is ok to shower the day after your surgery. Do not scrub the incisions, let soap and water wash over them and pat dry.
� Bruising around your incisions is normal.
� Using ice packs will help minimize this swelling.
� No swimming or soaking incisions for 1 week.
� Your stitches will dissolve and do not need to be removed.
Activity:
No heavy lifting more than 15 pounds for the next 3 weeks, then you may gradually lift heavier objects as tolerated by discomfort. Otherwise activity as tolerated by your comfort level.
Bowel Medications:
Prescription pain medication can make you constipated. If you take this medication, also take colace 100 mg twice daily (this is over the counter). If this is not sufficient, you may take Miralax (polyethylene glycol) to help move your bowels.
Diet:
After your procedure, there are no dietary restrictions. However, you may notice some loose stools with fatty meals for up to 4 weeks after surgery. If this is the case, please adjust to a low fat diet as needed.
Driving restrictions:
No driving if you are taking prescription pain medication or if you think your normal reaction time and attentiveness has been slowed by your surgery.
Things to Look out for:
Worsening Abdominal pain, fever, jaundice, redness or drainage from incision
Call Doctor for:
Please call if you notice worsening redness or drainage from incision(s) lasting longer than 5 days after your surgery, any foul-smelling drainage from the incision, pain not controlled by pain medications, persistent nausea and vomiting, or for any
fevers greater than 101.3 F. The number for questions/concerns is [phone]
Follow-up:
A follow-up appointment will be scheduled with your surgeon in 3-4 weeks. Please call prior to your appointment if you have any questions or concerns. [phone]
Referrals:
Jesus Bernal DO [Active] - in two to three weeks
Kofi Kaminski MD [Active] - in one to two weeks
Adarsh Foy MD [Family Provider] - in less than 1 week
Angelo Chavez MD [Active] - in two to four weeks
Prescriptions:
Continued
alprazolam 0.25 MG tablet
0.25 mg PO DAILY
Patient Comments:
05/10/2024: last filled 03/10/24, 30 tabs for 30 days from [facility]
famotidine 20 MG tablet
20 mg PO HS
escitalopram oxalate 20 MG tablet
20 mg PO DAILY
Align (B.infantis) 4 MG capsule
4 mg PO DAILY
aspirin 81 mg Tablet,Chewable
81 mg PO DAILY
isosorbide mononitrate 30 mg Tablet Extended Release 24 Hr
30 mg PO DAILY
atorvastatin 40 mg Tablet
40 mg PO HS
acetaminophen 500 mg Tablet
1,000 mg PO TID PRN (Reason: pain)
oxycodone-acetaminophen [Percocet] 5-325 mg Tablet
0.5 tab PO DAILY
nitroglycerin 0.4 mg Tablet, Sublingual
0.4 mg SUBLINGUAL Q5-15M PRN (Reason: chest pain)
metoprolol succinate 25 mg Tablet Extended Release 24 Hr
25 mg PO DAILY
Changed
polyethylene glycol 3350 [HealthyLax] 17 gram Powder In Packet
17 g PO DAILYPRN PRN (Reason: constipation) Qty: 3 0RF
docusate sodium [Colace] 100 mg Capsule
200 mg PO HSPRN PRN (Reason: constipation) Qty: 0 0RF
pregabalin 50 mg capsule
50 mg PO DAILY Qty: 0 0RF
Patient Comments:
05/10/2024: last filled 05/08/24, 60 tabs for 30 days from [facility]
Discharge Orders:
Discharge Patient (As Directed); Ordered 02/02/25
Ordered By: Kyrie Jules
Discharge Date and Time
Discharge Date/Time: 02/02/25 13:05
Print Language: SOMALI
== END 2025-02-02 13:05 | disposition home health service (06) | DRG 418 ==
LOC: 3 WEST ACU 02:51
PROVIDERS: Physician Assistant; Specialist; ADMITTING PHYSICIAN Internal Medicine; ATTENDING PHYSICIAN Internal Medicine; CONSULT PHYSICIAN Specialist; EMERGENCY PHYSICIAN Student in an Organized Health Care Education/Training Program; FAMILY PHYSICIAN Internal Medicine Geriatric Medicine; OTHER PHYSICIAN Surgery
PROC: 0FT44ZZ Resection of Gallbladder, Percutaneous Endoscopic Approach (ICD-10-PCS; 2025-01-29)
PROC: BF502Z0 Other Imaging of Bile Ducts using Fluorescing Agent, Intraoperative (ICD-10-PCS; 2025-01-29)
DX: K81.0 Acute cholecystitis (principal); K82.A2 Perforation of gallbladder in cholecystitis; N17.9 Acute kidney failure, unspecified; N18.4 Chronic kidney disease, stage 4 (severe); N13.6 Pyonephrosis; N13.8 Other obstructive and reflux uropathy; K82.A1 Gangrene of gallbladder in cholecystitis; K59.00 Constipation, unspecified; I12.9 Hypertensive chronic kidney disease with stage 1 through stage 4 chronic kidney disease, or unspecified chronic kidney disease; I25.10 Atherosclerotic heart disease of native coronary artery without angina pectoris; Z95.1 Presence of aortocoronary bypass graft; Z85.46 Personal history of malignant neoplasm of prostate; Z85.51 Personal history of malignant neoplasm of bladder; K21.9 Gastro-esophageal reflux disease without esophagitis; Z90.79 Acquired absence of other genital organ(s); J44.89 Other specified chronic obstructive pulmonary disease; D64.9 Anemia, unspecified; E78.00 Pure hypercholesterolemia, unspecified; F32.A Depression, unspecified; F41.9 Anxiety disorder, unspecified; I95.1 Orthostatic hypotension; M48.061 Spinal stenosis, lumbar region without neurogenic claudication; N40.0 Benign prostatic hyperplasia without lower urinary tract symptoms; Z79.82 Long term (current) use of aspirin; Z79.899 Other long term (current) drug therapy; Z82.3 Family history of stroke; Z86.711 Personal history of pulmonary embolism; Z87.442 Personal history of urinary calculi; Z88.2 Allergy status to sulfonamides; Z88.8 Allergy status to other drugs, medicaments and biological substances
CPT/HCPCS: 88304; 74181; 74300; 76000; 76700; 76775; 78226; 80048; 80053; 81003; 81015; 82248; 83690; 84484; 85025; 85027; 87086; 87324; 87449; 93005; 96374; 96375; 96376; 97116; 97162; 99285; A4300; A9537

== ENCOUNTER 2025-02-28 06:21 | Day surgery (SDC) | payer MEDICARE, OTHER, SELFPAY ==
[2025-02-28] VITALS (7 sets, daily range): BP systolic 113–129; BP diastolic 54–65; BMI 26.8
[2025-02-28] MEDS: LOPRESSOR 25 MG PO (10:56)
[2025-02-28] MEDS: NORMOSOL-R/PLASMALYTE-A 1000 IV (11:39)
== END 2025-02-28 14:05 | disposition home or self-care (01) ==
LOC: SDS 06:21
PROVIDERS: ATTENDING PHYSICIAN Specialist
DX: N13.8 Other obstructive and reflux uropathy (principal); N13.30 Unspecified hydronephrosis
CPT/HCPCS: 51102

== ENCOUNTER 2025-05-12 12:45 | Inpatient (IN) | payer MEDICARE, OTHER, SELFPAY ==
[2025-05-12] VITALS (8 sets, daily range): BP systolic 99–141; BP diastolic 59–97; BMI 26.1
[2025-05-12 09:19] LABS: Hematocrit 23.5 % (39.0-52.0); Hemoglobin 7.4 g/dL (13.0-18.0); Mean Corp Hgb Conc. 31.5 g/dL (33.0-37.0); Mean Corpuscular Volume 84.2 fL (80.0-94.0); Nucleated Red Blood Cells % 0 % (-); Platelet Count 304 10^3/uL (130-400); Red Cell Dist. Width 16.0 % (11.5-14.5)
[2025-05-12] MEDS: NSS 1000 IV (09:24)
--- NOTE | 2025-05-12 09:26 | ED.GENMED ---
History of Present Illness
General
Chief Complaint: Abnormal Lab Value
Source: patient
Exam Limitations: none
Time Seen by Provider: 05/12/25 09:08
Nursing documentation reviewed up to this point in time: agreed with
History of Present Illness
History of Present Illness:
see MDM
Past History
Past History
ED Past Medical History: CAD, Cancer (hx prostate), GERD, HTN, Hypercholesterolemia, Renal failure (c\\CKD), Psychiatric (anxiety) and Other (hx PE, NEUROPATHY)
ED Past Surgical History: Cardiac (CABG)
Review of Systems
Review of Systems
Allergies reviewed?: Yes
All Other Systems: Not applicable
Phy Exam
Physical Exam
Physical Exam:
GENERAL: Alert , gen weak
HEAD: L orbital ecchymosis; nontender orbit eoms normal
NECK: no midline tenderness, active ROM intact, no paraspinal muscle tenderness;
EYE: pupils equal and reactive, EOMs intact.
ENT: o/p clr, VERY DRY LIPS AND MOUTH
CARDIAC: Regular rate and rhythm, no edema
LUNGS: Clear breath sounds bilaterally, no acute respiratory distress, no wheezes/rales/rhonchi
ABDOMEN: Soft, without focal tenderness, no r/g, no cvat
heme neg brown stool
NEUROLOGICAL: Alert and oriented, no focal neuro deficits, CN intact, 5/5 strength, sensation intact
SKIN: Warm and dry,
MUSCULOSKELETAL: No edema, well perfused.
PSYCH: Normal and appropriate interaction.
Course
Orders/Labs/Results
Orders:
Orders
05/12/25 09:12
Electrocardiogram (*1) Urgent
Reason for Study: Abdominal Pain
EKG- Treatment ONCE
05/12/25 09:13
Basic Metabolic Panel Urgent
Complete Blood Count/With Diff Urgent
05/12/25 09:21
CT Abd/pel Without Iv Or Oral Urgent
Comment:
Reason For Exam: acute on chronic renal failure
CT Head W/o Iv Contrast Urgent
Comment:
Reason For Exam: fall, fatigue
05/12/25 09:23
0.9% Sodium Chloride 1000 ml [Nss] 1,000 ml IV BOLUS
05/12/25 Lunch
2 Gram Sodium [Sodium, 2 Gram]
At Your Request: Full Participation
Does patient need a safe tray?: No
Low Sodium: Potassium, 2 Gram
05/12/25 10:25
Type+Screen Urgent
Comprehensive Metabolic Panel Urgent
Ferritin Urgent
Iron Urgent
PTT Urgent
Prothrombin Time Urgent
Total Iron Binding Urgent
05/12/25 11:12
NEPHROLOGY CONSULT Urgent
Consulting Provider: Refugio Hills
Was physician already notified: Yes
Calcium Gluconate 1,000 mg IV NOW STA
Dextrose 50%-Water [Dextrose 50% Syringe] 12.5 grams IV A65MHGY PRN
Dextrose 50%-Water [Dextrose 50% Syringe] 25 grams IV NOW STA
Insulin Human Regular [Novolin R] 5 units IV NOW STA
05/12/25 11:13
Bedside Glucose PRE IV Insulin- HyperK+ NOW
05/12/25 11:51
Ondansetron Injectable [Zofran] 4 mg .ROUTE .STK-MED ONE
05/12/25 11:52
Electrocardiogram (*1) Urgent
Reason for Study: Chest Pain
05/12/25 11:53
EKG- Treatment ONCE
05/12/25 11:54
Ondansetron Injectable [Zofran] 4 mg IV NOW STA
05/12/25 11:59
Lactic Acid Urgent
Troponin I Urgent
Urinalysis Reflex To Culture Urgent
Date Specimen was Collected: 05/12/25
Time Specimen was Collected: 11:44
Urine Microscopic Reflex Cult Urgent
Blood Culture Q30M
TOM Source: Blood/Venous
Specimen Description:
Urine Culture Urgent
TOM Source: U
Specimen Description:
Date Specimen was Collected: 05/12/25
Time Specimen was Collected: 11:44
05/12/25 12:19
Admit/Transfer Patient As Directed
Co-Sign Provider:
Level of Care: Inpatient admission
Assign to:: Medical/Surgical
Physician / Group: Sujatha
Diagnosis: JOANNA on CKD4
Reason for Hospitalization: Urology, nephrology consult
Expected length of stay greater than two midnights?: Yes
ELOS- Estimated Length of Stay in days: 3
I certify the patient meets the requirements for IP care: Yes
PRN Pain Medication Management As Directed
May give lesser potent ordered pain med per pt: Yes
preference::
Protocol:: Medication orders for pain may be administered in a
manner that supports deferring to patient preference
when the pt is:
- Requesting an ordered lesser potent pain medication.
Least to most potent pain medications are defined
as: acetaminophen < NSAID < tramadol < opioids
(morphine, oxycodone, hydromorphone).
- Requesting a lesser dose of the same medication IF
ORDERED.
- Requesting a less intrusive route of administration
if both routes are prescribed by the provider (PO <
IV).
05/12/25 12:20
Code Status As Directed
Resuscitation Status: Do not resuscitate
Reached after discussion with pt or family/Healthcare POA: Yes
DNR Bracelet Application ONCE
05/12/25 12:43
Bedside Glucose POST IV Insulin- HyperK+ Q1HX2,Q2HX2
05/12/25 13:32
Potassium Urgent
Blood Culture Q30M
TOM Source: Blood/Venous
Specimen Description:
05/12/25 13:43
Potassium Urgent
Comment: draw 2 hours after regular insulin IV administration
05/12/25 13:54
Acetaminophen [Tylenol] 650 mg PO Q6HPRN PRN
05/12/25 13:54
UROLOGY CONSULT Routine
Consulting Provider: Ron Singh Jr.
Was physician already notified: Yes
Activity As Directed
Activity Level: With Assistance
Sequential Compression Device [Pneumatic Compression Sleeves] As Directed
Type: Knee high
DX Deep Vein Thrombosis Video Routine
05/13/25 06:00
CBC/With Diff [Complete Blood Count/With Diff] IN AM
05/14/25 06:00
CBC/With Diff [Complete Blood Count/With Diff] IN AM
Abnormal Lab Results
05/12/25 05/12/25 05/12/25
09:13 10:25 11:34
RBC 2.79 L 10^6/uL
(4.70-6.10)
Hgb 7.4 L g/dL
(13.0-18.0)
Hct 23.5 L %
(39.0-52.0)
MCH 26.5 L pg
(27.0-31.0)
MCHC 31.5 L g/dL
(33.0-37.0)
RDW 16.0 H %
(11.5-14.5)
Abs Immat Gran (auto) 0.1 H 10^3/uL
(0-0.05)
Absolute Lymphs (auto) 1.0 L 10^3/uL
(1.2-3.4)
Absolute Monos (auto) 0.9 H 10^3/uL
(0.1-0.6)
Immature Gran % 0.9 H %
(0-0.5)
Lymphocytes % 12.6 L %
(20.5-51.1)
Monocytes % 10.7 H %
(1.7-9.3)
PT 16.6 H Sec
(11.4-14.6)
Sodium 134 L mmol/L 134 L mmol/L
(135-145) (135-145)
Potassium 5.9 H mmol/L
(3.5-5.1)
Carbon Dioxide 12 L* mmol/L 13 L* mmol/L
(22-30) (22-30)
BUN 123 H* mg/dl 115 H* mg/dl
(9-20) (9-20)
Creatinine 9.1 H* mg/dL 9.1 H* mg/dL
(0.7-1.3) (0.7-1.3)
Iron 37 L ug/dl
(49-181)
TIBC 199 L ug/dl
(261-462)
% Saturation 18 L %
(20-50)
Ferritin 526.0 H ng/ml
(17.9-464.0)
Ur Occult Blood Reflex
Leukocyte Esterase Rfl
Urine WBC (Reflex)
Urine Bacteria (Reflex)
Urine Albumin (Reflex)
POC Glucose 101 H mg/dl
(70-99)
05/12/25 05/12/25
11:57 11:59
RBC
Hgb
Hct
MCH
MCHC
RDW
Abs Immat Gran (auto)
Absolute Lymphs (auto)
Absolute Monos (auto)
Immature Gran %
Lymphocytes %
Monocytes %
PT
Sodium
Potassium
Carbon Dioxide
BUN
Creatinine
Iron
TIBC
% Saturation
Ferritin
Ur Occult Blood Reflex 3+ A
(Negative)
Leukocyte Esterase Rfl 3+ A
(Negative)
Urine WBC (Reflex) >100 A /HPF
(0-5)
Urine Bacteria (Reflex) Moderate A
(Negative)
Urine Albumin (Reflex) 3+ A
(Neg - Trace)
POC Glucose 185 H mg/dl
(70-99)
05/12/25 09:13
Vital Signs
Initial and Last Documented VS:
Initial Vital Signs
Temp Pulse Resp Pulse Ox
36.6 C 97 20 98
05/12/25 09:04 05/12/25 09:04 05/12/25 09:04 05/12/25 09:04
Last Documented Vital Signs
Temp Pulse Resp BP Pulse Ox
36.4 C 85 16 136/62 98
05/12/25 14:26 05/12/25 14:26 05/12/25 14:26 05/12/25 14:26 05/12/25 14:26
MDM/Problems Addressed
Differential Diagnosis Includes:
see MDM
MDM/Problems Addressed:
Note:
CHIEF COMPLAINT(S)
Weakness and black eye after a fall.
HISTORY OF PRESENT ILLNESS
The patient presents with a history of feeling weak for a few days.
he had a fall a few days ago, unclear exactly what day, says he went to sit down and he fell forward when he got tangled up in his rollator and fell forward, hitting his face on the ground. no LOC. no thinners.
says he has had a black eye for a few days
but started feeling not well after that, leading to a visit to the primary care physician yesterday.
The patient states they visited their summer counselor a week ago and everything wsa going well, before the fall. his baseline cr is usually around 3.5
yesterday his PCP sent labs and today ptreceived phone call saying his CR was 8.
The patient denies symptoms of chest pain and dyspnea, vomiting, diarrhea, abdominal pain, back pain, swelling.
pt has not been eating/drinking as much, he hasn't had an appetite for a few days
but he thinks his suprapubic tube has been putting out normal urine
pt has h/o prostate ca and bladder ca causing obstruction and in february 2025 he received suprapubic catheter.
PAST MEDICAL HISTORY
- History of prostate cancer.
- History of bladder cancer, with a suprapubic catheter placed in October 2010 due to urethral stricture.
PAST SURGICAL HISTORY
- Coronary artery bypass graft surgery involving two vessels.
CHRONIC MEDICAL CONDITIONS SIGNIFICANTLY AFFECTING CARE
- Chronic kidney disease with reported elevated creatinine levels (8.8).
- History of bladder cancer and prostate cancer.
SOCIAL HISTORY
The patient resides at a care facility.
MEDICATIONS
The patient is not on any blood thinners currently.
REVIEW OF SYSTEMS
- General: Reports of weakness and feeling unwell.
- Neurological: No loss of consciousness reported after the fall.
- Cardiovascular: Denies chest pain or dyspnea.
- Gastrointestinal: Uncertain about recent fluid and food intake.
- Genitourinary: Confirms presence of urine output; no history of dialysis.
- Musculoskeletal: Reports of a black eye from a recent fall.
PHYSICAL EXAM
Nursing notes reviewed and vital signs reviewed.
- Ophthalmic: Notable black eye present from a fall.
- General: Appears to be in a weak state as per patient report.
PROBLEM LIST
Acute Problems:
- Weakness and black eye post-fall.
- Elevated creatinine indicating potential kidney injury.
Chronic Problems:
- Chronic kidney disease.
- History of bladder cancer.
- Coronary artery disease status post-coronary artery bypass graft surgery.
PLAN
The current kidney function tests and blood levels need verification and monitoring. If the creatinine level is confirmed to be significantly elevated, hospitalization will be necessary. The nephrology team will be consulted to assess and determine
whether fluid management or emergency dialysis is required based on the lab work results. The severity of renal function impairment and the potential need for urgent intervention will be closely monitored.
DIFFERENTIAL DIAGNOSIS
The Differential Diagnosis includes, in no particular order and is not limited to:
- Dehydration-induced acute kidney injury
- Chronic kidney disease exacerbation
- Electrolyte imbalance potentially affecting renal function
- Acute coronary syndrome
- Urinary tract obstruction due to stricture or catheter complications
- Orthostatic hypotension leading to falls
- Hypoglycemia causing weakness
- Anemia as a cause of general weakness
- Upper respiratory infections affecting overall health
- Malnutrition impacting general health status.
85-year-old male with a history of the suprapubic tube, chronic hydronephrosis, history of bladder cancer and prostate cancer, CABG
Presents for generalized fatigue and weakness over the last couple of days as well as known outpatient labs showing a creatinine of 9 from yesterday's primary care office appointment. Patient says he fell last week sometime forward hitting his face
and ever since then really has not had a great appetite and has been feeling a bit fatigued. He is also had some back pain but that seems to have been ongoing prior to the fall. He assumed he was just sore. He is also noticed cloudy urine for
period of time, it seems like it has been several weeks. Patient has been having normal output into his suprapubic tube but the urine has been cloudy he thinks for weeks. He was treated with antibiotics sometime last month.
On exam the patient will looked extremely dehydrated, weak, no significant edema, lungs are clear, patient's vitals were initially stable.
His suprapubic tube does have 200 cc of cloudy yellow urine
And he is not having any bladder distention
He has some ecchymosis around his left eye which is nontender and he is awake and alert and oriented
His EKG is an unchanged right bundle branch block sinus rhythm, no ischemic changes. His creatinine was confirmed to be 9, BUN 123, bicarb 12, potassium is 5.9
CT shows bilateral severe hydronephrosis with significant worsening of the left side from his chronic hydro, he also has stranding suggesting an ascending infection. We will collect a urine sample and treat with antibiotics. I notified Dr. Singh
from urology regarding the potential for bilateral nephrostomy tubes, as well as nephrology for his renal failure and patient will be admitted to the ICU
*Pulse Oximetry
SaO2: 98
Oxygen Mode of Delivery: Room air
Patient hypoxic: no (98)
*Critical Care Note
Total Time (30-74mins, 75-104mins- exclusive of procedures): Not Applicable
ED Attending Note
-
Portions of this chart may have been created with voice recognition software.� Occasional wrong word or��sound alike� substitutions may have occurred due to the inherent limitations of voice recognition software.
Discharge Plan
Departure
Patient Disposition: Admit
Date of Disposition: 05/12/25
Time of Disposition: 11:08
Admit to: ICU
Presentation/result/management discussed w/ accepting MD/DO: Hospitalist
Condition: Fair
Covid-19: Not Applicable
Discharge Problem:
Acute renal failure
Interventions
Interventions:
*Risk Screen - Suicide Last Done: 05/12/25 09:04
*General Assessment Last Done: 05/12/25 09:04
*Neglect/Abuse Screening Last Done: 05/12/25 09:04
*ED COVID-19 Vaccine History Last Done: 05/12/25 14:48
*Nursing Disposition Last Done: 05/12/25 13:51
Discharge Date and Time
Discharge Date/Time: 05/12/25 13:53
[2025-05-12 09:53] LABS: Calcium 8.7 mg/dl (8.4-10.2); Carbon Dioxide 12 mmol/L (22-30); Chloride 105 mmol/L (98-107); Estimated Creatinine Clearance 7 ml/min; Glucose 97 mg/dl (70-99); Sodium 134 mmol/L (135-145); eGFR 5.28
[2025-05-12 10:06] LABS: Blood Urea Nitrogen 123 mg/dl (9-20)
[2025-05-12 10:54] LABS: INR 1.32; PT 16.6 Sec (11.4-14.6)
[2025-05-12 10:55] LABS: APTT 35.0 Sec (23.4-35.0)
[2025-05-12 11:12] LABS: ALT (SGPT) 24 U/L (0-50); AST (SGOT) 23 U/L (17-59); Albumin 3.5 g/dl (3.5-5.0); Alkaline Phosphatase 81 U/L (38-126); Blood Urea Nitrogen 115 mg/dl (9-20); Calcium 8.5 mg/dl (8.4-10.2); Carbon Dioxide 13 mmol/L (22-30); Chloride 105 mmol/L (98-107); Estimated Creatinine Clearance 7 ml/min; Glucose 95 mg/dl (70-99); Iron 37 ug/dl (49-181); Potassium 5.9 mmol/L (3.5-5.1); Sodium 134 mmol/L (135-145); Total Protein 6.6 g/dl (6.3-8.2); eGFR 5.28
[2025-05-12 11:18] LABS: Total Iron Binding Capacity 199 ug/dl (261-462)
[2025-05-12] MEDS: DEXTROSE 50% SYRINGE 25 GRAMS IV (11:27)
[2025-05-12] MEDS: CALCIUM GLUCONATE 1000 MG IV (11:29)
[2025-05-12] MEDS: NOVOLIN R 5 UNITS IV (11:30)
[2025-05-12 11:35] LABS: Glucose - Point of Care 101 mg/dl (70-99)
[2025-05-12 11:40] LABS: Ferritin 526.0 ng/ml (17.9-464.0)
[2025-05-12] MEDS: ZOFRAN 4 MG IV (11:54)
[2025-05-12 11:58] LABS: Glucose - Point of Care 185 mg/dl (70-99)
--- NOTE | 2025-05-12 12:18 | CON.MD ---
Consultation - Medical
-
see dictated note
pt well knwo to dr garcia
hx of localized prostate and bladder cancer- up to date with surveillance and YOJANA
also long hx of voiding dysfunction and neurogenic bladder
known bilateral hydro and CRI despite bladder decompression with rodriguez- then more recent sp tube
sp tube recently changed
admitted with weakness
sp tube has been functional with usual UO
cr now 9
CT shows bilateral hydro down to bladder level- perhaps mild increase on left from prev imaging
plan
reviewed options with pt and family
current eval with med team and nephrology
from obstruction perspective- next option would be percs- this has been reviewed with pt before- he declined then and now
he wants to pursue medical management at this time- understanding that if there is undrained infx - his condition will worsen
also reviewed comfort care measures
will follow
Consultation
-
Date/Time Consultation Requested: 05/12/25 at 11:30am
Date/Time Consultation Performed: 05/12/25 at 12:15 pm
Requesting Provider: ER
Performing Provider: Dr Singh
Reason for Consultation: hydronephrosis
--- NOTE | 2025-05-12 12:31 | W.CON.NEPH ---
Consultation
-
Date/Time Consultation Requested: May 12 2025 at 12 PM
Date/Time Consultation Performed: May 12, 2025 at 12:30 PM
Requesting Provider: Dr. Solares
Performing Provider: Dr. Hills
Reason for Consultation: Acute on chronic kidney disease
Medical History
-
Chief Complaint: Acute kidney injury
History of Present Illness:
This is a 85-year-old male with extensive past medical history notable for CAD status post CABG on ASA and metoprolol, prostate cancer status post TURP, recurrent bladder cancer status post TURP, COPD, MGUS, irritable bowel syndrome and GERD who
presents to the emergency department difficulty walking with tremors and severe acute kidney injury with obstructive uropathy. He is status post suprapubic catheter for chronic obstruction. He was recently treated for a UTI. I saw him in the
office a couple weeks ago his creatinine was 3.3. Blood work shows a creatinine of 9 with a bicarb of 13 and a potassium of 5.9
Renal consultation for JOANNA
Family was present as well as primary hospitalist and urology in which the case was discussed.
Past Medical History
lumbar spinal stenosis
bilateral renal calculi
bladder cancer s/ p /TURB
BPH status post TURP 2021
CAD/CO/CABG x 3 vessel, CABG x 1 vessel 2017
HTN
Orthostatic hypotension
HLD
PE
asthma,
GERD
esophageal stricture with history of swallowing difficulties
IBS
OA
anxiety/ depression
Past Surgical History: Reports Other
Additional Past Surgical History:
Right CTR
CABG times 10/09/2017, CABG x 3
Bilateral cataract extraction
Dental implants
TURP 2021
TURB 2/2 bladder cancer
Social History
Tobacco: Non-Smoker
Alcohol: None
Living: With Family
Family History
Family History: Not Pertinent
Allergies / Home Medications
Allergy/AdvReac Type Severity Reaction Status Date / Time
ezetimibe Allergy Unknown Verified 02/28/25 09:42
lisinopril Allergy cough Verified 02/28/25 09:42
Sulfa (Sulfonamide Allergy diarrhea Verified 02/28/25 09:42
Antibiotics)
�Medication �Instructions �Recorded �Confirmed �Type
Bifidobacterium infantis 4 mg 4 mg PO DAILY probiotic 01/01/22 02/28/25 History
capsule (Align (B.infantis))
alprazolam 0.25 mg tablet 0.25 mg PO DAILY anxiety 01/01/22 02/28/25 History
escitalopram oxalate 20 mg tablet 20 mg PO DAILY depression/anxiety 01/01/22 02/28/25 History
famotidine 20 mg tablet 20 mg PO HS Gastrointestinal Issue 01/01/22 02/28/25 History
aspirin 81 mg chewable tablet 81 mg PO DAILY Blood Clot 01/11/23 02/28/25 History
Prevention/Tx
acetaminophen 500 mg tablet 1,000 mg PO TID PRN pain 01/29/25 02/28/25 History
atorvastatin 40 mg tablet 40 mg PO HS cholesterol 01/29/25 02/28/25 History
isosorbide mononitrate 30 mg 30 mg PO DAILY Heart 01/29/25 02/28/25 History
tablet,extended release 24 hr Disease/Condition
metoprolol succinate 25 mg 25 mg PO DAILY Blood Pressure 01/29/25 02/28/25 History
tablet,extended release 24 hr
nitroglycerin 0.4 mg sublingual 0.4 mg sublingual Q5-15M PRN chest 01/29/25 02/28/25 History
tablet pain
oxycodone-acetaminophen 5 mg-325 0.5 tab PO DAILY PRN Pain 01/29/25 02/28/25 History
mg tablet (Percocet)
docusate sodium 100 mg capsule 200 mg (2 x 100 mg) PO HSPRN PRN 02/02/25 02/28/25 Rx
(Colace) constipation #0 caps
polyethylene glycol 3350 17 gram 17 g PO DAILYPRN PRN constipation 02/02/25 02/28/25 Rx
oral powder packet (HealthyLax) #3 ea
pregabalin 50 mg capsule 50 mg PO DAILY Neurological 02/02/25 02/28/25 Rx
Condition #0 caps
Review of Systems
-
Difficulty walking no chest pain or shortness of breath
All other systems: Negative unless noted
Physical Exam
Vital Signs
Vital Signs
Temp Pulse Resp BP Pulse Ox
97.8 F 97 20 141/66 98
05/12/25 09:04 05/12/25 09:04 05/12/25 09:04 05/12/25 09:11 05/12/25 09:27
Lab Results
WBC 8.0 10^3/uL (4.8-10.8) 05/12/25 09:13
RBC 2.79 10^6/uL (4.70-6.10) L 05/12/25 09:13
Hgb 7.4 g/dL (13.0-18.0) L 05/12/25 09:13
Hct 23.5 % (39.0-52.0) L 05/12/25 09:13
Plt Count 304 10^3/uL (130-400) 05/12/25 09:13
Sodium 134 mmol/L (135-145) L 05/12/25 10:25
Chloride 105 mmol/L (98-107) 05/12/25 10:25
Carbon Dioxide 13 mmol/L (22-30) L* 05/12/25 10:25
BUN 115 mg/dl (9-20) H* 05/12/25 10:25
Creatinine 9.1 mg/dL (0.7-1.3) H* 05/12/25 10:25
eGFR 5.28 05/12/25 10:25
Glucose 95 mg/dl (70-99) 05/12/25 10:25
Calcium 8.5 mg/dl (8.4-10.2) 05/12/25 10:25
Albumin 3.5 g/dl (3.5-5.0) 05/12/25 10:25
Physical Exam
General no acute distress
HEENT no cephalic atraumatic extraocular muscle intact no scleral icterus no JVD neck supple
lungs clear to auscultation bilateral
heart regular S1-S2 positive
abdomen soft nontender positive bowel sounds
extremities no edema pulses present bilateral
Neurologically nonfocal alert and oriented x 3
Skin no lesions no abrasions no petechiae
Psych normal affect no bizarre behavior
Data Reviewed
-
CT Scan: Image Personally Visualized and interpreted
Assessment/Plan
-
Impression:
JOANNA (with bilateral hydronephrosis)
CKD4
Coronary artery disease
TURP 2021
TURB 2/2 bladder cancer
lumbar spinal stenosis
bilateral renal calculi
bladder cancer s/p TURB
BPH status post TURP 2021
HTN
Orthostatic hypotension
esophageal stricture with history of swallowing difficulties
anxiety/ depression
Plan:
Medical management for hyper kalemia as discussed with the ER
Await urine studies concern for UTI
Pending results suggest prophylactic antibiotic
Next step would be percutaneous nephrostomy tubes although after long discussion with the family likely would not elect to be aggressive.
Patient is not a candidate for hemodialysis and would not want that even if so.
As of now he would not want to pursue decompression but will wait for the final word
He otherwise would need to be hospice care
[2025-05-12 12:46] LABS: Troponin I < 0.012 ng/ml
--- NOTE | 2025-05-12 13:22 | HPS.HSE ---
Family Physician
-
Family Physician: NOT KNOW UNKNOWN - PT DOES
Chief Complaint
-
Abnormal blood work, fatigue
History of Present Illness
85-year-old male referred to the emergency room for abnormal blood work showing worsening creatinine. Has had fatigue for several days. Loss of appetite.
Otherwise has had minimal symptoms.
Did have a fall prior to admission 2 days ago sustaining a bruise around the left eye.
Medical History
Past Medical History
Past Medical History: Reports Other
Additional Past Medical History:
CKD 4
Prostate cancer
Bladder cancer
Chronic bilateral hydronephrosis
CAD
AAA
Essential hypertension
BPH
GERD
Nephrolithiasis
IBS
Anxiety disorder
Pulmonary embolism�2013
COPD
Hyperlipidemia
CIDP
MGUS
Past Surgical History: Reports Other
Additional Past Surgical History:
CABG�September 2012, redo CABG 2017
TURBT 2013
Lithotripsy
TURP
suprapubic catheter
Laparoscopic cholecystectomy January 2025
Social History
Tobacco: Non-smoker
Alcohol: None
Drug: None
Living: Assisted Living
Employment: Retired
Family History
Family History: Not pertinent
Allergies / Home Medications
Allergies reflects when Allergies were last updated in [employer].
Home Medications with original date entered in [employer]
Allergy/Medication List:
Allergies
Allergy/AdvReac Type Severity Reaction Status Date / Time
ezetimibe Allergy Unknown Verified 02/28/25 09:42
lisinopril Allergy cough Verified 02/28/25 09:42
Sulfa (Sulfonamide Allergy diarrhea Verified 02/28/25 09:42
Antibiotics)
Home Medications
Bifidobacterium infantis 4 mg capsule (Align (B.infantis)) 4 mg PO DAILY probiotic 01/01/22
alprazolam 0.25 mg tablet 0.25 mg PO DAILY anxiety 01/01/22
escitalopram oxalate 20 mg tablet 20 mg PO DAILY depression/anxiety 01/01/22
famotidine 20 mg tablet 20 mg PO HS Gastrointestinal Issue 01/01/22
aspirin 81 mg chewable tablet 81 mg PO DAILY Blood Clot Prevention/Tx 01/11/23
acetaminophen 500 mg tablet 1,000 mg PO TID PRN pain 01/29/25
atorvastatin 40 mg tablet 40 mg PO HS cholesterol 01/29/25
isosorbide mononitrate 30 mg tablet,extended release 24 hr 30 mg PO DAILY Heart Disease/Condition 01/29/25
metoprolol succinate 25 mg tablet,extended release 24 hr 25 mg PO DAILY Blood Pressure 01/29/25
nitroglycerin 0.4 mg sublingual tablet 0.4 mg sublingual Q5-15M PRN chest pain 01/29/25
oxycodone-acetaminophen 5 mg-325 mg tablet (Percocet) 0.5 tab PO DAILY PRN Pain 01/29/25
docusate sodium 100 mg capsule (Colace) 200 mg (2 x 100 mg) PO HSPRN PRN constipation #0 caps 02/02/25
polyethylene glycol 3350 17 gram oral powder packet (HealthyLax) 17 g PO DAILYPRN PRN constipation #3 ea 02/02/25
pregabalin 50 mg capsule 50 mg PO DAILY Neurological Condition #0 caps 02/02/25
Review of Systems
-
History Source: Patient
A 12 point ROS was completed and negative except as noted: Yes
Physical Exam
Vital Signs
Vital Signs
Temp Pulse Resp BP Pulse Ox
97.8 F 90 15 103/64 97
05/12/25 09:04 05/12/25 13:00 05/12/25 13:00 05/12/25 13:00 05/12/25 13:00
Physical Exam
General: Well Developed, Well Nourished, No Apparent Distress and Comfortable
HEENT: NormoCephalic, Anicteric, Moist mucous membranes and Other (Left periorbital ecchymosis)
Respiratory: Clear
Cardiac: S1/S2 and Regular Rhythm
GI: Soft, Non Tender and Non Distended
Genito-urinary: Suprapubic Tube
Musculoskeletal: No Clubbing, No Cyanosis and No Edema
Skin: Warm and Dry
Neuro: AO x 3
Hematologic/Lymphatic: No Lymphadenopathy
Psych: Calm
Laboratory Results
-
05/12/25 09:13
Laboratory Results
PT 16.6 Sec (11.4-14.6) H 05/12/25 10:25
INR 1.32 05/12/25 10:25
APTT 35.0 Sec (23.4-35.0) 05/12/25 10:25
Lactic Acid 0.8 mmol/L (0.7-2.0) 05/12/25 11:59
Total Bilirubin 0.4 mg/dl (0.2-1.3) 05/12/25 10:25
AST 23 U/L (17-59) 05/12/25 10:25
ALT 24 U/L (0-50) 05/12/25 10:25
Alkaline Phosphatase 81 U/L (38-126) 05/12/25 10:25
Troponin I < 0.012 ng/ml 05/12/25 11:59
Impression/Plan
-
JOANNA on CKD 4 -etiology could be multifactorial including worsening obstruction versus volume depletion versus other. Given presentation, I suspect progression of kidney disease as well as worsening bilateral hydronephrosis are playing a role.
Nephrology recommends against hemodialysis as he is a poor candidate. Patient not interested in bilateral nephrostomy tubes.
Urology mentioned recent suprapubic catheter change. SP tube has been functional with usual urine output.
At this point in time patient and family opt for conservative measures. They understand that if he fails then hospice would be appropriate.
Urinalysis pending. Clinically doubt UTI as patient has no signs or symptoms of infection.
High anion gap metabolic acidosis -due to progression of kidney failure. Sodium bicarbonate 12. Start IV bicarbonate drip.
Hyperkalemia -due to JOANNA on CKD. Treated in the emergency room with dextrose, calcium, insulin. Give a dose of Lokelma. Monitor potassium level.
Acute on chronic anemia -doubt bleeding clinically. Suspect related to progression of kidney failure. Hemoglobin was 9.1 in January, currently 7.4. Hold off on transfusion, patient and family agree. Monitor for now.
Hyponatremia -sodium 134. Monitor for now.
CAD/CABG -stable.
Essential hypertension -stable.
BPH
History of bladder cancer
History of prostate cancer
Neurogenic bladder
DNR -confirmed with patient and family.
Family updated at the bedside.
Discussed with urology and nephrology.
[2025-05-12 13:50] LABS: Urine Character Mucous (Clear)
[2025-05-12 14:10] LABS: Urine White Cell >100 /HPF (0-5)
[2025-05-12 14:10] LABS: Potassium 5.8 mmol/L (3.5-5.1)
[2025-05-12 14:15] LABS: Glucose - Point of Care 94 mg/dl (70-99)
[2025-05-12] MEDS: LOKELMA 10 GRAM PO ×2 (14:17→17:04)
[2025-05-12] MEDS: SODIUM BICARBONATE 1150 MEQ IV (14:18)
[2025-05-12 16:00] LABS: Glucose - Point of Care 104 mg/dl (70-99)
[2025-05-12] MEDS: TYLENOL 650 MG PO ×2 (17:04→20:48)
[2025-05-12 18:02] LABS: Glucose - Point of Care 121 mg/dl (70-99)
[2025-05-12] MEDS: LIDOCAINE 4% PATCH 1 PATCH TOPICAL (20:47)
[2025-05-13] MEDS: SODIUM BICARBONATE 1150 MEQ IV ×2 (04:24→10:39)
[2025-05-13] MEDS: LOKELMA 10 GRAM PO ×3 (05:08→16:14)
[2025-05-13 07:27] VITALS: BP 134/71
[2025-05-13] MEDS: REMOVE LIDOCAINE PATCH 1 PATCH REMOVE (07:32)
--- NOTE | 2025-05-13 07:46 | W.PN.URO.CBU ---
Today's Communication / Plan
-
continue medical management
Assessment / Plan
-
hx of prostate and bladder cancer
hx of NGB with reflux nephropathy
acute on chronic renal failure
UTI
SP tube
reviewed with pt and med team
pt does NOT want percs of HD
plan to manage medically with likely transition to comfort care
will be available for ?'s
Diagnosis
-
Date of Service: May 13, 2025
-
Patient Diagnosis:
hx of prostate and bladder cancer
NGB with high pressure reflux
acute on chronic renal failure
UTI
Subjective
-
pt still very tired
urine output >2 liters and clear
am labs and cx pending
Objective
-
Vital Signs
Temp Pulse Resp BP Pulse Ox
97.6 F 88 20 134/71 97
05/13/25 07:27 05/13/25 07:27 05/13/25 07:27 05/13/25 07:27 05/13/25 07:27
Intake and Output
05/12/25 05/13/25 05/14/25
06:59 06:59 06:59
Intake Total 1620 / 1620
Output Total 2250 / 2250
Balance -630 / -630
Intake:
Oral fluids 720 / 720
IV fluids (Total) 900 / 900
Output:
Urine, Voided 2250 / 2250
Review of Systems
-
Constitutional: Fever
Respiratory: No Symptoms
Cardiac: No Symptoms
Abdomen/GI: Nausea
Physical Exam
-
General - chronically ill appearing, NAD
Abdomen - soft, non-tender, sp tube in place
[2025-05-13 08:44] LABS: Hematocrit 24.5 % (39.0-52.0); Hemoglobin 7.9 g/dL (13.0-18.0); Mean Corp Hgb Conc. 32.2 g/dL (33.0-37.0); Mean Corpuscular Volume 81.9 fL (80.0-94.0); Nucleated Red Blood Cells % 0 % (-); Platelet Count 287 10^3/uL (130-400); Red Cell Dist. Width 16.0 % (11.5-14.5)
[2025-05-13 09:07] LABS: ALT (SGPT) 24 U/L (0-50); AST (SGOT) 21 U/L (17-59); Albumin 3.3 g/dl (3.5-5.0); Alkaline Phosphatase 77 U/L (38-126); Blood Urea Nitrogen 118 mg/dl (9-20); Calcium 8.7 mg/dl (8.4-10.2); Carbon Dioxide 18 mmol/L (22-30); Chloride 104 mmol/L (98-107); Estimated Creatinine Clearance 7 ml/min; Glucose 95 mg/dl (70-99); Potassium 5.7 mmol/L (3.5-5.1); Sodium 137 mmol/L (135-145); Total Protein 6.3 g/dl (6.3-8.2); eGFR 5.49
--- NOTE | 2025-05-13 10:50 | PTCARENOTE ---
Addendum entered by Sylvia Aguiar RN 05/13/25 11:57:
05/13- This RN was present in room with Physician when Physician clarified expectations of hospice care. Physician thoroughly explained and clarified hospice care. Patient and his both asked the same questions as earlier and verbalized
understanding to the clarification.
Original Note:
05/13- Patient and are mildly escalated, stating, 'all the doctors told us he'd be going home to be comfortable. To be comfortable, he needs all of his medications.' Attempted to educate patient and about Hospice vs Palliative vs Full
care. Gave written information via [employer] handouts. Patient is insisting to be comfortable he needs all of his medications. Advised I will speak with Physician to come and clarify his expectations to make an informed decision. Patient is
AAOX2, forgetful, anxious, repeats the same questions several times throughout conversation. Patient and are anxious but no longer escalated.
--- NOTE | 2025-05-13 11:17 | W.PN.HOSP.TC ---
Today's Communication/Plan
-
Consult hospice
Assessment / Plan
Assessment / Plan
Gen-AAOx3, NAD
HEENT-NC, AT, anicteric, clear oral mm
Neck-supple
CV-reg, no M, +S1/S2
Lungs-clear B/L
Abd-soft, NT, ND
Ext-no edema
Musculoskeletal-no cyanosis, clubbing
Skin-warm and dry
Neuro-grossly non-focal
Psych-calm, cooperative
JOANNA on CKD 4 -etiology could be multifactorial including worsening obstruction versus volume depletion versus other. Given presentation, I suspect progression of kidney disease as well as worsening bilateral hydronephrosis are playing a role. Does
have uremic symptoms characterized by anorexia and nausea.
Nephrology recommends against hemodialysis as he is a poor candidate. Patient not interested in bilateral nephrostomy tubes.
Urology mentioned recent suprapubic catheter change. SP tube has been functional with usual urine output.
Patient and family have opted for conservative measures and transition to hospice on discharge. Hospice has been consulted.
I had multiple discussions with patient and significant other at the bedside regarding goals of hospice including relief of suffering. They understand that the goal is not to prolong life.
Explained to patient and family that as renal failure progresses he will feel sick with worsening nausea and subsequent mental status changes progressing to coma. He is accepting of this and is okay with plan of care.
Patient's nurse present for family meeting.
High anion gap metabolic acidosis -due to progression of kidney failure. Sodium bicarbonate improved on IV bicarbonate. Will reduce rate of IV fluids.
Hyperkalemia -due to JOANNA on CKD. On Lokelma.
Acute on chronic anemia -doubt bleeding clinically. Suspect related to progression of kidney failure. Hemoglobin was 9.1 in January, currently 7.4. Hold off on transfusion, patient and family agree. Monitor for now.
Hyponatremia -improved.
CAD/CABG -stable.
Essential hypertension -stable.
BPH
History of bladder cancer
History of prostate cancer
Neurogenic bladder
DNR -confirmed with patient and family.
Dispo -plan for discharge back to [facility] on hospice. Case management aware.
Anticipated Discharge: Within 24 hours
Subjective/Interval History
-
Date of Service: May 13, 2025
Patient seen and examined. Significant other at the bedside. Complaining of mild nausea, anorexia. Denies pain.
Objective Data
-
Labs:
Laboratory Results
05/13/25
08:14
WBC 7.9
Hgb 7.9 L
Hct 24.5 L
Plt Count 287
Sodium 137
Potassium 5.7 H
Chloride 104
Carbon Dioxide 18 L
BUN 118 H*
Creatinine 8.8 H*
Glucose 95
Calcium 8.7
Total Bilirubin 0.5
AST 21
ALT 24
Alkaline Phosphatase 77
Vital Signs:
Vital Signs
Temp Pulse Resp BP Pulse Ox
97.6 F 88 20 134/71 95
05/13/25 07:27 05/13/25 07:27 05/13/25 07:27 05/13/25 07:27 05/13/25 07:30
I&O
05/12/25 05/13/25 05/14/25
06:59 06:59 06:59
Intake Total 1620 / 1620
Output Total 2250 / 2250
Balance -630 / -630
Review of Systems
-
History Source: Patient
All other systems: Reviewed and negative
--- NOTE | 2025-05-13 13:01 | CM ---
Addendum entered by Barbara Block 05/13/25 14:40:
Plan is home tomorrow with [facility] back to [facility], 9am cigar packer and picker by ambulance OOH DNR completed and placed on chart, IMM completed and placed on chart.
Original Note:
facilities engineering manager reviewed patient's chart and met with patient and significant other at bedside, patient lives at [facility] with his significant other, patient was independent with adl's and uses a rollator with ambulation, patient has a
cane. facilities engineering manager spoke with physician and plan is for hospice, patient wants to return to [facility] on hospice. Options reviewed and referral sent to [facility] to discuss hospice with patient and significant other.
PCP: Dr. Solano
Pharmacy: [facility] at [facility]
Plan; referral sent to [facility] at the will review and reach out to patient today.
--- NOTE | 2025-05-13 14:02 | W.DS.TRANS ---
DC Summary - Art Psychotherapist Or Therapist
-
Discharge Instructions:
Discharge Diagnosis/Procedures Acute kidney injury on chronic kidney disease
Diet Regular
Activity As tolerated
Driving Restrictions No driving
Bathing Restrictions None
Other Services Hospice
Instructions:
Stand-Alone Forms:
Changes to Home Medications: No
Discharge Medications:
DC Medications w/original date entered in [employer]
alprazolam 0.25 mg tablet 0.25 mg PO QPM anxiety 01/01/22
escitalopram oxalate 20 mg tablet 20 mg PO DAILY depression/anxiety 01/01/22
famotidine 20 mg tablet 20 mg PO HS Gastrointestinal Issue 01/01/22
acetaminophen 500 mg tablet 1,000 mg PO QPM 01/29/25
nitroglycerin 0.4 mg sublingual tablet 0.4 mg sublingual Q5-15M PRN chest pain 01/29/25
docusate sodium 100 mg capsule (Colace) 200 mg (2 x 100 mg) PO HSPRN PRN constipation #0 caps 02/02/25
acetaminophen 650 mg tablet,extended release 650 mg PO DAILY@0805/12/25
oxycodone-acetaminophen 5 mg-325 mg tablet 0.5 tab PO DAILY@0805/12/25
polyethylene glycol 3350 17 gram oral powder packet (HealthyLax) 17 g PO HSPRN PRN constipation 05/12/25
pregabalin 50 mg capsule 50 mg PO BID Neurological Condition 05/12/25
sodium bicarbonate 650 mg tablet 650 mg PO BID 05/12/25
Home Medication Changes
Pending Results: No
--- NOTE | 2025-05-13 14:05 | HOSPNOTE ---
Rec'd referral - spoke on the phone with Refugio Keenan and family in room 417-2 - Discussed Hospice philosophy and they are in agreement. He lives with his Irma in independent living at [facility]. The family reported that they did not
currently need any DME to be delivered at this time so there is no need to wait for discharge for DME delivery. Asked for 9AM transport - TT with Dr Solares and JULIO CÉSAR Block to update.
[2025-05-13 15:45] VITALS: BP 160/86
--- NOTE | 2025-05-13 15:57 | W.PN.NEPH.PH ---
Today's Communication / Plan
-
Signed off
Assessment/Plan
-
Impression:
JOANNA (with bilateral hydronephrosis)
CKD4
Coronary artery disease
TURP 2021
TURB 2/2 bladder cancer
lumbar spinal stenosis
bilateral renal calculi
bladder cancer s/p TURB
BPH status post TURP 2021
HTN
Orthostatic hypotension
esophageal stricture with history of swallowing difficulties
anxiety/ depression
Plan:
Medical management for hyper kalemia as discussed with the ER
Await urine studies concern for UTI
Pending results suggest prophylactic antibiotic
Next step would be percutaneous nephrostomy tubes although after long discussion with the family likely would not elect to be aggressive.
Patient is not a candidate for hemodialysis and would not want that even if so.
Discussion at length again with the patient and family at the bedside they are electing hospice
Respect his wishes
Will sign off
-
-
Date of Service: May 13, 2025
CC / HPI / ROS
-
No chest pain or shortness of breath
No overnight events
10 point review of systems obtained all all else negative
Labs
-
Labs:
WBC 7.9 10^3/uL (4.8-10.8) 05/13/25 08:14
RBC 2.99 10^6/uL (4.70-6.10) L 05/13/25 08:14
Hgb 7.9 g/dL (13.0-18.0) L 05/13/25 08:14
Hct 24.5 % (39.0-52.0) L 05/13/25 08:14
Plt Count 287 10^3/uL (130-400) 05/13/25 08:14
Sodium 137 mmol/L (135-145) 05/13/25 08:14
Potassium 5.7 mmol/L (3.5-5.1) H 05/13/25 08:14
Chloride 104 mmol/L (98-107) 05/13/25 08:14
Carbon Dioxide 18 mmol/L (22-30) L 05/13/25 08:14
BUN 118 mg/dl (9-20) H* 05/13/25 08:14
Creatinine 8.8 mg/dL (0.7-1.3) H* 05/13/25 08:14
eGFR 5.49 05/13/25 08:14
Glucose 95 mg/dl (70-99) 05/13/25 08:14
Calcium 8.7 mg/dl (8.4-10.2) 05/13/25 08:14
Albumin 3.3 g/dl (3.5-5.0) L 05/13/25 08:14
Physical Exam
-
Vital Signs:
Vital Signs
Temp Pulse Resp BP Pulse Ox
97.2 F 95 20 160/86 97
05/13/25 15:45 05/13/25 15:45 05/13/25 15:45 05/13/25 15:45 05/13/25 15:45
Cardiovascular:: Regular rate and rhythm
Respiratory:: Bilateral: Coarse
Lung Excursion:: Normal
Abdomen:: Nontender and Soft
Bowel Sounds:: Normal
Extremity Edema:: None: Bilateral:
Forte Catheter: No
--- NOTE | 2025-05-13 16:00 | PTCARENOTE ---
05/13- Patient had walked to bathroom, sat upright and had a bowel movement. His suprapubic catheter site began leaking urine. Cleaned and changed patient. Patient states when he is in upright positions and bares down, he can experience leakage but
not otherwise. Site is still CDI with catheter intact. Catheter site skin CDI surrounding. Cath still draining clear yellow urine.
[2025-05-13] MEDS: LOKELMA PO (16:12)
[2025-05-13] MEDS: TYLENOL 650 MG PO (16:21)
[2025-05-13 23:26] VITALS: BP 130/71
--- NOTE | 2025-05-14 02:28 | PTCARENOTE ---
Patient refusing sodium bicarb 40ml/hr. Covering provider Hanna Shultz is aware.
[2025-05-14] MEDS: LOKELMA 10 GRAM PO (05:11)
[2025-05-14 06:09] LABS: Hematocrit 23.4 % (39.0-52.0); Hemoglobin 7.5 g/dL (13.0-18.0); Mean Corp Hgb Conc. 32.1 g/dL (33.0-37.0); Mean Corpuscular Volume 82.7 fL (80.0-94.0); Nucleated Red Blood Cells % 0 % (-); Platelet Count 296 10^3/uL (130-400); Red Cell Dist. Width 16.1 % (11.5-14.5)
[2025-05-14 06:34] LABS: ALT (SGPT) 23 U/L (0-50); AST (SGOT) 18 U/L (17-59); Albumin 3.3 g/dl (3.5-5.0); Alkaline Phosphatase 80 U/L (38-126); Blood Urea Nitrogen 113 mg/dl (9-20); Calcium 8.5 mg/dl (8.4-10.2); Carbon Dioxide 19 mmol/L (22-30); Chloride 104 mmol/L (98-107); Estimated Creatinine Clearance 7 ml/min; Glucose 96 mg/dl (70-99); Potassium 5.3 mmol/L (3.5-5.1); Sodium 140 mmol/L (135-145); Total Protein 6.3 g/dl (6.3-8.2); eGFR 5.21
[2025-05-14 07:11] VITALS: BP 142/72
[2025-05-14] MEDS: SODIUM BICARBONATE IV (07:12)
[2025-05-14] MEDS: TYLENOL 650 MG PO (07:14)
--- NOTE | 2025-05-14 09:13 | CM ---
Chart reviewed. Plan is for patient to d/c home today w/ [facility].
10 am transport confirmed
== END 2025-05-14 10:52 | disposition hospice, home (50) | DRG 683 ==
LOC: 4 WEST ACU 12:45
PROVIDERS: Physician Assistant; ADMITTING PHYSICIAN Hospitalist; ATTENDING PHYSICIAN Internal Medicine; CONSULT PHYSICIAN Orthopaedic Surgery Foot and Ankle Surgery; CONSULT PHYSICIAN Specialist; EMERGENCY PHYSICIAN Emergency Medicine
DX: N17.9 Acute kidney failure, unspecified (principal); E87.1 Hypo-osmolality and hyponatremia; E87.20 Acidosis, unspecified; G61.81 Chronic inflammatory demyelinating polyneuritis; N18.4 Chronic kidney disease, stage 4 (severe); I12.9 Hypertensive chronic kidney disease with stage 1 through stage 4 chronic kidney disease, or unspecified chronic kidney disease; E87.5 Hyperkalemia; D63.1 Anemia in chronic kidney disease; N13.2 Hydronephrosis with renal and ureteral calculous obstruction; Z85.46 Personal history of malignant neoplasm of prostate; Z85.51 Personal history of malignant neoplasm of bladder; I25.10 Atherosclerotic heart disease of native coronary artery without angina pectoris; N40.0 Benign prostatic hyperplasia without lower urinary tract symptoms; K21.9 Gastro-esophageal reflux disease without esophagitis; K58.9 Irritable bowel syndrome, unspecified; F41.9 Anxiety disorder, unspecified; Z86.711 Personal history of pulmonary embolism; J44.9 Chronic obstructive pulmonary disease, unspecified; D47.2 Monoclonal gammopathy; W19.XXXA Unspecified fall, initial encounter; I95.1 Orthostatic hypotension; M48.061 Spinal stenosis, lumbar region without neurogenic claudication; Z90.79 Acquired absence of other genital organ(s); E78.00 Pure hypercholesterolemia, unspecified; R54 Age-related physical debility; S00.12XA Contusion of left eyelid and periocular area, initial encounter; Z66 Do not resuscitate; Z79.82 Long term (current) use of aspirin; Z79.899 Other long term (current) drug therapy; Z87.440 Personal history of urinary (tract) infections; Z88.2 Allergy status to sulfonamides; Z88.8 Allergy status to other drugs, medicaments and biological substances; Z95.1 Presence of aortocoronary bypass graft; Z98.41 Cataract extraction status, right eye; Z98.42 Cataract extraction status, left eye
CPT/HCPCS: 70450; 74176; 80048; 80053; 81003; 81015; 82728; 82962; 83540; 83550; 83605; 84132; 84484; 85025; 85610; 85730; 86850; 86900; 86901; 87040; 87077; 87086; 87186; 93005; 96361; 96374; 96375; 99285